=== PATIENT | male | born 1975 | race Asian ===

== ENCOUNTER 2025-02-25 16:36 | Emergency (ER) | payer MEDICAID ==
[~2025-02-25] VITALS: Ht 175.3 cm; Wt 80.0 kg
[2025-02-25 16:44] VITALS: BP 132/84; PULSE 78; RESP 18; TEMP 97.6; O2SAT 98
[2025-02-25 17:55] LABS: MEAN PLATELET VOLUME 8.8 FL (7.4-10.4); RED CELL DISTRIBUTION WIDTH 24.0 % (11.5-14.5)
[2025-02-25 18:11] LABS: APTT 34 SECONDS (22-32); INR 2.1 INR
[2025-02-25 18:20] LABS: CREATININE 0.49 MG/DL (0.60-1.10); TOTAL CARBON DIOXIDE 23.1 MMOL/L (24-32); eCRCL 186 ML/MIN; eGFR > 90 ML/MIN
[2025-02-25 18:30] LABS: PLATELET ESTIMATE DECREASED
== END 2025-02-25 21:24 | disposition left against medical advice (07) ==
LOC: ER 16:37
DX: R10.9 Unspecified abdominal pain (principal); Z53.21 Procedure and treatment not carried out due to patient leaving prior to being seen by health care provider
CPT/HCPCS: 36415; 80053; 82150; 83690; 83735; 85008; 85025; 85610; 85730

== ENCOUNTER 2025-02-26 05:59 | Inpatient (IN) | payer MEDICAID ==
[~2025-02-26] VITALS: Ht 172.7 cm; Wt 80.3 kg
[2025-02-26 06:00] VITALS: TEMP 98.4
[2025-02-26 07:21] LABS: CREATININE 0.65 MG/DL (0.60-1.10); TOTAL CARBON DIOXIDE 23.2 MMOL/L (24-32)
[2025-02-26 07:22] LABS: eGFR > 90 ML/MIN
[2025-02-26 07:25] LABS: MEAN PLATELET VOLUME 8.7 FL (7.4-10.4); RED CELL DISTRIBUTION WIDTH 23.8 % (11.5-14.5)
--- NOTE | 2025-02-26 07:28 | Physician Documentation ---
History of Present Illness General Chief Complaint: Abdominal Pain Stated Complaint: DRAINING Time Seen by MD: 07:20 History of Present Illness Initial Comments The patient is a 49-year-old male who admits to heavy drinking (until about two months ago when reportedly cut back) who has developed abdominal swelling over the past two weeks. He takes no regular medications. Medication Reconciliation Allergies: Coded Allergies: No Known Allergies (Unverified , 02/25/25) Physical Exam Physical Exam Vital Signs: Temperature: 98.4, Source: Oral, Heart Rate: 104, Respiratory Rate: 16, BP: 126/82, Pulse Oximetry: 99, Weight: 80.300 Oxygen Flow Rate: 0 Progress Results/Orders Results/Orders Orders - TESSIE HOWARD MD Ammonia (02/26/25 07:20) Covid19 Binax Poc Result Entry (02/26/25 07:20) Drug Screen, Urine (02/26/25 07:20) LA (02/26/25 07:20) Chest,Single View (02/26/25 07:31) Page Hospitalist (02/26/25 07:40) Ct Abdomen Pelvis (02/26/25 07:54) Completed Orders - TESSIE HOWARD MD Pt Inr (02/26/25 07:20) Chest,Single View (02/26/25 07:31) Iohexol 300mg/Ml 100ml Inj. (Omnipaque-3 (02/26/25 08:06) Vital Signs 02/26/25 02/26/25 06:00 08:00 Temp 98.4 Pulse 104 99 Resp 16 B/P (MAP) 126/82 139/91 (107) Pulse Ox 99 93 O2 Flow Rate 0 0 Laboratory Tests Test 02/26/25 06:01 02/26/25 06:36 02/26/25 06:38 02/26/25 07:34 Sodium Level 135 Potassium Level 3.6 Chloride Level 106 Carbon Dioxide Level 23.2 L Anion Gap 6 L Blood Urea Nitrogen 4 L Creatinine 0.65 Estimated GFR/1.73 m2 > 90 BUN/Creatinine Ratio 6.2 L Glucose Level 109 H Calcium Level 8.2 L Magnesium Level 1.7 Total Bilirubin 4.0 H Aspartate Amino Transf (AST/SGOT) 135 H Alanine Aminotransferase (ALT/SGPT) 42 Alkaline Phosphatase 162 H Total Protein 8.5 H Albumin 2.0 L Globulin 6.5 H Albumin/Globulin Ratio 0.3 L Lipase 79 H Chemistry Comments Ethyl Alcohol Level 280 H Prothrombin Time 20.3 H INR International Normalized Ratio 2.1 Coagulation Comments White Blood Count 4.3 L Red Blood Count 3.98 L Hemoglobin 8.3 L Hematocrit 26.8 L Mean Corpuscular Volume 67.3 L Mean Corpuscular Hemoglobin 20.8 L Mean Corpuscular Hemoglobin Concent 30.9 L Red Cell Distribution Width 23.8 H Platelet Count 62 L Mean Platelet Volume 8.7 Neutrophils (%) (Auto) Lymphocytes (%) (Auto) Monocytes (%) (Auto) Eosinophils (%) (Auto) Basophils (%) (Auto) Neutrophils # (Auto) Lymphocytes # (Auto) Monocytes # (Auto) Eosinophils # (Auto) Basophils # (Auto) CBC Comment Differential Total Cells Counted 100 Neutrophils % (Manual) 46.0 Lymphocytes % (Manual) 35.0 Monocytes % (Manual) 7.0 Eosinophils % (Manual) 6.0 Reactive Lymphocytes 6.0 H Platelet Estimate Decreased Red Blood Cell Morphology Perf Hypochromasia 1+ Basophilic Stippling Anisocytosis 3+ Microcytosis 2+ Target Cells 2+ Tear Drop Cells Few Lactic Acid Level 2.2 H Departure Disposition: ADMITTED INPATIENT Admitted to Inpatient Unit: to hospitalist Admission Level of Care: Med/Surg Impression: Primary Impression: Abdominal ascites Condition: Stable Referrals: NO PRIMARY CARE PROVIDER (PCP) Signature Scribe Signature: . Attestation: TESSIE SHERMAN MD Feb 26, 2025 07:28
[2025-02-26 07:43] LABS: INR 2.1 INR
--- NOTE | 2025-02-26 07:48 | RADIOLOGY REPORT ---
CHEST RADIOGRAPH Indication: Massive ascites Technique: Single frontal view of the chest was obtained Comparison: None FINDINGS: Lines and Tubes: None Lungs: No focal consolidation. Pleura: No effusion. No pneumothorax. Cardiomediastinal contours: Unremarkable Bones: No acute osseous abnormality. IMPRESSION: No acute cardiopulmonary disease.
[2025-02-26 07:55] LABS: ETHANOL 280 MG/DL (<10)
[2025-02-26 08:02] LABS: EOSINOPHILS % (MANUAL) 6.0 % (0-6); LYMPHOCYTES % (MANUAL) 35.0 % (21-51); MONOCYTES % (MANUAL) 7.0 % (2-12); NEUTROPHILS % (MANUAL) 46.0 % (42-75); REACTIVE LYMPHOCYTES % 6.0 % (0-0)
[2025-02-26 08:03] LABS: PLATELET ESTIMATE DECREASED
[2025-02-26] MEDS ORDERED: iohexol 300mg/ml 100ml inj. ONE (08:06)
[2025-02-26 09:03] LABS: LACTATE DEHYDROGENASE 248 U/L (85-227)
--- NOTE | 2025-02-26 09:53 | RADIOLOGY REPORT ---
Exam: CT CT ABDOMEN PELVIS W/ IV CONTRAST History: Massive ascites COMPARISON: None Technique: Multidetector spiral CT of the abdomen and pelvis was performed from lung bases to pubic symphysis. Intravenous contrast was administered during this examination. Multiphase imaging was obtained. Axial, coronal and sagittal multiplanar reformats were performed by the technologist on a separate workstation. Radiation Dose : 1. Abdomen/Pelvis: CTDIvol 21.4mGy, DLP 3105.6 mGy*cm. Findings: Lung Bases: No acute or significant lung base finding. Normal heart size. No pleural or pericardial effusion. Liver: Mildly nodular hepatic contours are present suggestive of cirrhosis. Multiple punctate bilobar nonenhancing lesions are present in the liver which may represent cysts. Gallbladder and Biliary Tree: Unremarkable Spleen: Unremarkable Pancreas: The pancreas is normal in appearance without focal lesions or abnormal enhancement. Adrenal Glands: Unremarkable Kidneys: No hydronephrosis. Bladder: Unremarkable Bowel: The stomach is grossly normal in appearance. Small bowel and colon are normal in caliber and distribution. The appendix is not visualized; however, no secondary findings of acute appendicitis identified. Ascites: Moderate to large volume abdominopelvic ascites. Lymphadenopathy: No mesenteric, retroperitoneal or periportal lymphadenopathy. Abdominal Wall and Mesentery: Unremarkable. Vasculature: The visualized abdominal aorta is normal in size and caliber. Abdominal and pelvic vessels demonstrate normal enhancement. Pelvic Organs: Unremarkable Musculoskeletal: No aggressive focal bony lesions, acute fractures or dislocation. IMPRESSION: Nodular hepatic contours suggestive of cirrhosis. Moderate to large volume abdominopelvic ascites. Nonenhancing bilobar hepatic lesions which may represent cysts. No suspicious hepatic lesion. Radiation optimization: All CT scans at this facility use at least one of these dose optimization techniques: automated exposure control mA and/or kV adjustment per patient size (includes targeted exams where dose is matched to clinical indication) or iterative reconstruction.
[2025-02-26] MEDS ORDERED: potassium Cl 20 mEq SR tablet PO PRN ×2 (10:25)
[2025-02-26] MEDS ORDERED: magnesium hydroxide 30ml (MOM) UD suspension PO PRN (10:25)
[2025-02-26] MEDS ORDERED: ondansetron/PF 4mg/2ml inj IV PRN (10:25)
[2025-02-26] MEDS ORDERED: magnesium sulf-water 2g/50mL 50 ML IV PRN (10:25)
[2025-02-26] MEDS ORDERED: magnesium Cl slow-release 64mg tablet PO PRN (10:25)
[2025-02-26] MEDS ORDERED: mag hydrox/Alum hydrox/simeth 30ml oral suspension PO PRN (10:25)
[2025-02-26] MEDS ORDERED: potassium Cl 40MEQ/1/2NS 520ml 520 ML IV PRN (10:25)
[2025-02-26] MEDS ORDERED: magnesium sulf-water 4G/100mL 100 ML IV PRN (10:25)
[2025-02-26] MEDS ORDERED: dextrose 50%-water 50ml dispensing syringe IV PRN (10:30)
[2025-02-26] MEDS ORDERED: haloperidol lactate 5mg/ml inj IM PRN (10:30)
[2025-02-26] MEDS: folic acid 1mg/0.2ml inj IV SCH (10:40)
[2025-02-26 10:57] LABS: CHOL/HDL RATIO 5.8 (0.00-4.99); LDL CHOLESTEROL 48 MG/DL (50-100)
[2025-02-26] MEDS ORDERED: diazepam inj 5 MG/ML inj. IV PRN ×2 (11:00)
[2025-02-26] MEDS: thiamine 100mg/ml 2ml inj. IV SCH (11:09)
[2025-02-26 11:39] VITALS: BP 136/75; PULSE 113; RESP 17; O2SAT 99
[2025-02-26 11:44] VITALS: BP 117/74; PULSE 90; RESP 17; O2SAT 100
--- NOTE | 2025-02-26 11:52 | PROCEDURE NOTE CC ---
Procedure Note CC Providers to CC ~ Procedure Name: Paracentesis Description: Indication: Ascites Time-out: Done Consent: Pt Technique: US guided Fluid: 4400ml clear yellow. Sample sent to lab Complication: None EBL: 0ml Sepsis Screening Reassessment Date: Feb 26, 2025 BILL GARLAND MD Feb 26, 2025 11:52
[2025-02-26 12:22] LABS: GLUCOSE,BODY FLUID 117 MG/DL; LDH,BODY FLUID 47 U/L
[2025-02-26 12:46] LABS: BF MESOTHELIAL CELLS FEW; BF RBC COUNT 108 /CU MM; BF WBC COUNT 48 /CU MM (0-1000); BFAPPEAR HAZY; BFCOLOR YELLOW; BFSOURCE ASCITES FLD; BFVOLUME 40 ML; LYMPHOCYTES,BODY FLUID 52 %; MONOCYTES,BODY FLUID 44 %; NEUTROPHILS,BODY FLUID 4 %
[2025-02-26] MEDS ORDERED: thiamine 100mg/ml 2ml inj. IV SCH (13:00)
--- NOTE | 2025-02-26 13:04 | RADIOLOGY REPORT ---
PROCEDURE: ULTRASOUND GUIDED PARACENTESIS HISTORY: 49 Male requiring paracentesis. TECHNIQUE: The risks and benefits of the procedure including but not limited to bleeding, infection and injury to abdominal organs were explained to the patient and written informed consent was obtained. Optimal site for puncture was determined using ultrasound and the area sterilized and draped. Using a 5 Welsh Yueh catheter, paracentesis was performed in the right lower abdomen. Approximately 4.4 liters of straw colored fluid was removed. The patient tolerated the procedure well. There were no immediate complications. IMPRESSION: Ultrasound-guided paracentesis with no immediate complications. Procedure by Dr. Rodgers
[2025-02-26 13:26] LABS: TOTAL PROTEIN,BODY FLUID < 2.0 G/DL
[2025-02-26] MEDS ORDERED: docusate sod 100mg capsule PO SCH (20:00)
[2025-02-26] MEDS ORDERED: K and/or MAG REPLACEMENT MC SCH (20:00)
--- NOTE | 2025-02-26 22:03 | HISTORY AND PHYSICAL-Residence ---
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 He reports that since 1 week epigastric pain started suddenly which is 5/10 in intensity, non radiating. Also reports shortness of breath since 1 but denies fever nausea sweating hematemesis or blood in stool. Mentions that he does not nauseated he does not eat anything, it makes him nauseated. He has been trying to quit alcohol previously used to drink 5-6 shots, now since 1 week he has reduced his alcohol intake to 2-3 shots a day. Reports that he never experienced withdrawal symptoms Allergies: Coded Allergies: No Known Allergies (Unverified , 02/25/25) Past Medical History Past Medical History Denies any past medical history Past Surgical History Surgical History Comment Denies any past surgical history Past Social History Social History Comment He quit smoking 3-4 years ago before that he used to smoke 1-2 ciggartes in a week. He drinks alcohol chronically and has been drinking 5-6 shots in a day, reduced it to 2-3 shots in a day. Denies other illicit drug use He is unemployed and lives in home with family ROS ROS Constitutional: no fever,no chills, dizziness, weakness, weight gain or loss. Eyes: No pain, erythema, discharge, blurring of vision ENT: No sore throat, epistaxis, tinnitus Cardiovascular: No chest pain, chest pressure, chest discomfort, palpitations, syncope, lower extremity edema, paroxysmal nocturnal dyspnea Respiratory: No shortness of breath, cough, hemoptysis Gastrointestinal: no nausea, vomiting,reports epigastric pain, no melena or hematochezia, reports constipation, no diarrhea Genitourinary: No frequency, urgency, nocturia, hematuria or dysuria Musculoskeletal: No arthralgias or myalgias Integumentary: No change in skin, hair, nails,No swelling, abrasions. Neurologic: No headache, neck pain, numbness or tingling of the extremities, weakness Psychiatric: No delusions, depression, no loss of interest in normal activity or change in sleep pattern, no hallucinations,no suicidal ideations Endocrine: No fatigue, weakness, polydipsia, polyuria, change in appetite, heat or cold intolerance, dry skin,no sweating Hematological: no bleeding or bruises in upper extremities. Allergies: No asthma or urticaria Exam Vitals: Vital Signs Date Time Temp Pulse Resp B/P (MAP) Pulse Ox O2 Delivery O2 Flow Rate FiO2 02/26/25 11:44 90 17 117/74 (88) 100 Room Air 02/26/25 08:00 0 02/26/25 06:00 98.4 General: General: awake, alert oriented to place, time, and person HEENT: No pallor present,scleral icterus, moist mucous membranes Neck: No masses and tenderness Resp: Unlabored. Lungs clear to auscultation bilaterally. Chest: Normal expansion. Cardiovascular: Regular Rate and rhythm, normal S1 and S2 without murmur, rub or gallop Abdomen: Hard and non tender and distended, no organomegaly, no guarding and rigidity, bowel sounds present Neuro: No focal weakness in the upper and lower limb muscles, power of the muscles 5/5 bilateral upper and lower extremities, normal reflexes bilaterally. Cranial nerves intact Extremities: No cyanosis,clubbing or edema MusculoSkelelal: No arthalagia or Myalgia. Skin: Warm and Dry. Psych: Normal affect Diagnostic Data Last Recorded Lab Results: 02/26/25 0638 02/26/25 0601 Diagnostic Data: Laboratory Tests Test 02/26/25 06:36 Prothrombin Time 20.3 SECONDS (9.0-12.0) H INR International Normalized Ratio 2.1 INR Coagulation Comments Additional Plan Patient presented here with complain of epigastric pain and shortness of Breath. Acute Decompensated Liver Failure due to Cirhosis Secondary to Alcohol Use CT Abdomen/Pelvis CT: Nodular hepatic contours suggestive of cirrhosis. Moderate to large volume abdominopelvic ascites. Nonenhancing bilobar hepatic lesions which may represent cysts. No suspicious hepatic lesion. ALT 135 , AST normal, ALP 162 Total bilirubin 4, Ammonia normal. Toxicology positive for alcohol Lactic acid trended upward from 2.2 to 2.6 PT: 20.3 Pancytopenia Patient abdomen was distended Consulted for paracentesis. Pancytopenia likely due to bone marrow suppresion from Alcohol Rbc: 4.3 Hgb: 8.3 WBC: 4.3 Platelet Count: 62 Tear drop cells and target cells on peripheral smear. Alcohol Use Disorder Patient was placed on alcohol withdrawl protocol. Dvt Prophylaxis: SCD GI Prophylaxis: Pantoprazole CODE Status: Full Code Date of Service: Feb 26, 2025 Billing Provider: BRITTNEY LOCKHART MD, SANJAY, BISI Feb 26, 2025 22:03
--- NOTE | 2025-02-26 22:05 | DISCHARGE SUMMARY-Residence ---
Discharge Summary Providers to CC Resident Creating Document: DAMARIS HANDY RES CC: BRITTNEY LOCKHART MD ~ Discharge Summary Admission Diagnosis: Cirhosis Hospital Course DATE OF ADMISSION: 02/26/2025 DATE OF DISCHARGE: 02/26/2025 Discharge Diagnosis\Comment: Acute Decompensated Liver Failure Cirhosis Pancytopenia Operations\Procedures: Paracentesis Consultants: Dr Rodgers Complications: none Condition on DC: Unstable Discharge Summary: History of Presenting Illness This is 52-year-old male hafsa speaker, he does not understand swazi so i used virtual lot boss He presents to the ER with complaint of epigastric pain. He reports that since 1 week epigastric pain started suddenly which is 5/10 in intensity, non radiati ng. Also reports shortness of breath since 1 but denies fever nausea sweating hematemesis or blood in stool. Mentions that he does not nauseated he does not eat anything, it makes him nauseated. He has been trying to quit alcohol previously used to drink 5-6 shots, now since 1 week he has reduced his alcohol intake to 2-3 shots a day. Reports that he never experienced withdrawal symptoms. We explained patient risk of leaving hospital including but he choose to be AMA. Hospital Course Patient presented in ER with complain of epigastric pain, Nodular hepatic contours suggestive of cirrhosis. Moderate to large volume abdominopelvic ascites, In view of his ascited performed paracentesis. Apart from that he received thiamine, folic acid and pantoprazole for GI prophylaxis. We explained patient risk of leaving hospital including but he choose to be AMA. Physical Examination General: General: awake, alert oriented to place, time, and person HEENT: No pallor present,scleral icterus, moist mucous membranes Neck: No masses and tenderness Resp: Unlabored. Lungs clear to auscultation bilaterally. Chest: Normal expansion. Cardiovascular: Regular Rate and rhythm, normal S1 and S2 without murmur, rub or gallop Abdomen: Hard and non tender and distended, no organomegaly, no guarding and rigidity, bowel sounds present Neuro: No focal weakness in the upper and lower limb muscles, power of the muscles 5/5 bilateral upper and lower extremities, normal reflexes bilaterally. Cranial nerves intact Extremities: No cyanosis,clubbing or edema MusculoSkelelal: No arthalagia or Myalgia. Skin: Warm and Dry. Psych: Normal affect Labs Wbc 4.3 Hgb: 8.3 Hct: 26.8 Platelet Count: 62 Na: 135 K: 3.6 Creatinine: 0.65 BUN: 4 Lipase 36 Total Bilirubin 4 AST 135, ALT 42 LDH: 248 TSH 5.10 Imaging Abdominal/Pelvis CT: Nodular hepatic contours suggestive of cirrhosis. Moderate to large volume abdominopelvic ascites. Nonenhancing bilobar hepatic lesions which may represent cysts. No suspicious hepatic lesion. Chest X- Ray: No acute cardiopulmonary disease. Procedure Paracentesis: Ultrasound-guided paracentesis with no immediate complications. We explained patient risk of leaving hospital including but he choose to be AMA. *Problems/Diagnosis: (1) Abdominal ascites Status: Chronic Total Time Spent on D/C: > 30 Minutes Date of Service: Feb 26, 2025 Billing Provider: BRITTNEY LOCKHART MD, SANJAY, RES Feb 26, 2025 22:05
[2025-02-27] MEDS ORDERED: folic acid 1mg/0.2ml inj IV SCH (08:00)
== END 2025-02-26 12:51 | disposition left against medical advice (07) ==
LOC: ER 05:59 → ED HOLD 08:09
PROVIDERS: ADMIT Family Medicine; ATTEND Family Medicine
PROC: 0W9G3ZZ Drainage of Peritoneal Cavity, Percutaneous Approach (ICD-10-PCS; principal; 2025-02-26)
PROC: BW211ZZ Computerized Tomography (CT Scan) of Abdomen and Pelvis using Low Osmolar Contrast (ICD-10-PCS; 2025-02-26)
DX: K74.60 Unspecified cirrhosis of liver (principal); D61.818 Other pancytopenia; K72.10 Chronic hepatic failure without coma; Z20.822 Contact with and (suspected) exposure to COVID-19; Z53.21 Procedure and treatment not carried out due to patient leaving prior to being seen by health care provider; R18.8 Other ascites; K72.00 Acute and subacute hepatic failure without coma
CPT/HCPCS: 36415; 49083; 71045; 74178; 80053; 80061; 80320; 82140; 82945; 83036; 83605; 83615; 83690; 83735; 84157; 84443; 85007; 85025; 85610; 87070; 87075; 87811; 89051; 96374; 96375; 99285; C1729; G0378; J2470; J3411; J3490; Q9967

== ENCOUNTER 2025-03-29 05:20 | Emergency (ER) | payer MEDICAID ==
[~2025-03-29] VITALS: Ht 172.7 cm; Wt 82.4 kg
--- NOTE | 2025-03-29 06:21 | Physician Documentation ---
History of Present Illness General Chief Complaint: See Chief Complaint Stated Complaint: FLUID IN STOMACH Time Seen by MD: 06:20 Mode of Arrival: POV History of Present Illness Initial Comments The patient is a 49-year-old male with a history of alcoholic cirrhosis. The patient was admitted to the hospital month and a half ago had 4 L of fluid taken out of his abdomen with a paracentesis. The patient states he stopped taking Lasix at his providers instruction several weeks ago. Patient has had continued swelling and discomfort to the abdomen. The pain is described as moderate the patient's swelling is not as bad as it was a month and a half ago. The patient has only been tapped once before. Patient's symptoms are moderate and persisten t. Medication Reconciliation Allergies: Coded Allergies: No Known Allergies (Unverified , 02/25/25) Past Medical History Past Medical History: Liver Failure Review of Systems All Other Systems at this time: Reviewed and Negative Physical Exam Physical Exam Vital Signs: Temperature: 98.2, Source: Oral, Heart Rate: 115, Respiratory Rate: 20, BP: 144/80, Pulse Oximetry: 100, Weight: 82.400 Oxygen Flow Rate: 0 Physical Exam VITALS: Reviewed and as above. GENERAL: Alert, no apparent distress chronically ill-appearing jaundiced appearing HEENT: Normocephalic, atraumatic, PERRL, EOMI, dry mucosa, no erythema icteric sclera RESPIRATORY: Lungs clear, normal breath sounds, no respiratory distress. CHEST: No accessory muscle use, no retractions CV: Tachycardic rate, rhythm, no edema, no murmur, No: JVD GI: Soft, distended slightly tender diffusely bowels sounds present, no rebound, guarding, or rigidity BACK: No CVA tenderness, or swelling MUSCULOSKELETAL: No deformities, no edema SKIN: Warm and dry, no rash NEURO: Oriented x4, No motor or sensory deficit PSYCH: Normal mood and affect, no agitation Procedures Additional Procedures Procedure Note The patient was verbally consented for a paracentesis the patient had a area of fluid localized by ultrasound in the right lower quadrant that area was then prepped with a chlorhexidine prep, the procedure was done under sterile conditions. The patient had 5 cc of lidocaine 1% injected into the identified site in the right lower quadrant. The paracentesis catheter was then placed with good return of clear ascitic yellow fluid. The patient tolerated the procedure well. There were no complications. 7 L OF ASCITIC FLUID WERE REMOVED PATIENT REMAINED NORMOTENSIVE Progress Results/Orders Results/Orders Orders - OHLABBEY CADE MD Pt Inr (03/29/25 06:26) Paracentesis Set Up (03/29/25 ) Completed Orders - ABBEY SWEENEY MD Cbc/Diff (03/29/25 06:26) CMP (03/29/25 06:26) Vital Signs 03/29/25 03/29/25 03/29/25 03/29/25 05:27 05:39 07:36 09:25 Temp 98.2 98.2 Pulse 115 89 88 Resp 16 20 16 16 B/P (MAP) 144/80 114/52 (72) 119/67 Pulse Ox 100 100 97 O2 Flow Rate 0 0 Laboratory Tests Test 03/29/25 08:10 White Blood Count 9.4 Red Blood Count 4.12 L Hemoglobin 9.0 L Hematocrit 28.2 L Mean Corpuscular Volume 68.4 L Mean Corpuscular Hemoglobin 21.9 L Mean Corpuscular Hemoglobin Concent 31.9 L Red Cell Distribution Width 21.8 H Platelet Count 156 Mean Platelet Volume 8.5 Neutrophils (%) (Auto) 80.6 H Lymphocytes (%) (Auto) 6.0 L Monocytes (%) (Auto) 12.7 H Eosinophils (%) (Auto) 0.4 Basophils (%) (Auto) 0.3 Neutrophils # (Auto) 7.6 Lymphocytes # (Auto) 0.6 L Monocytes # (Auto) 1.2 H Eosinophils # (Auto) 0.0 Basophils # (Auto) 0.0 CBC Comment Platelet Estimate Normal Red Blood Cell Morphology Perf Hypochromasia 1+ Basophilic Stippling Anisocytosis 3+ Microcytosis 2+ Target Cells 1+ Tear Drop Cells Few Elliptocytes Few Rouleau 1+ Sodium Level 123 L Potassium Level 5.0 Chloride Level 96 L Carbon Dioxide Level 23.6 L Anion Gap 3 L Blood Urea Nitrogen 8 Creatinine 0.71 Estimated GFR/1.73 m2 > 90 BUN/Creatinine Ratio 11.3 Glucose Level 87 Calcium Level 8.2 L Total Bilirubin 9.6 H Aspartate Amino Transf (AST/SGOT) 77 H Alanine Aminotransferase (ALT/SGPT) 28 Alkaline Phosphatase 126 H Total Protein 7.8 Albumin 1.2 L Globulin 6.6 H Albumin/Globulin Ratio 0.2 L Chemistry Comments Medical Decision Making Additional info obtained from: old records Findings The patient is a 49-year-old alcoholic cirrhotic who comes in with ascites, the patient has been tapped once before for about 4 L of fluid that was removed. The patient has been on spironolactone but he stopped taking his Lasix due to some hyponatremia. The patient had a paracentesis in the emergency department he was comfortable throughout had 7 L of fluid removed and remained normotensive. The patient's sodium continues to be low I believe that was why he was taken off Lasix I have advised them to increase his salt intake and a continue once a day Lasix I initially was going to put him on twice a day but given the low-sodium I think he would benefit from some Lasix as long as he increases his salt intake he is also going to be continued on one dose of 100 mg of spironolactone a day ideally he would benefit from both of these medicines twice a day however with a low-sodium I think once a day would be ideal for now. Prior hospitalizations has been reviewed. The patient's pulse oximetry was interpreted as adequate normal. The patient's care was discussed with the son who understood the plan of care. The patient's courier was interpreted as a normal sinus rhythm. The patient has a soft belly with a clear fluid there was no reason for sending the fluid for analysis as it was a therapeutic tap. The patient has been advised to follow up closely as an outpatient. Departure Time of Disposition: 08:40 Disposition: 01 HOME / SELF CARE / HOMELESS Impression: Primary Impression: Abdominal ascites Qualified Codes: K70.31 - Alcoholic cirrhosis of liver with ascites Discharge Instructions: Ascites Additional Instructions: Use your Lasix 40 mg 2 times a day, and use the spironolactone twice daily. Follow up with your healthcare provider as soon as possible. Return for worsening of your symptoms. Referrals: NO PRIMARY CARE PROVIDER (PCP) Signature Scribe Signature: no scribe Attestation: The note accurately reflects work and decisions made by me.Abbey Sweeney MD 03/30/25 06:07 ABBEY SWEENEY MD Mar 29, 2025 06:21
[2025-03-29 07:36] VITALS: TEMP 98.2
[2025-03-29 08:36] LABS: MEAN PLATELET VOLUME 8.5 FL (7.4-10.4); RED CELL DISTRIBUTION WIDTH 21.8 % (11.5-14.5)
[2025-03-29] MEDS ORDERED: FURO40TA4 PO (08:38)
[2025-03-29] MEDS ORDERED: SPIR100T5 PO (08:38)
[2025-03-29 09:03] LABS: PLATELET ESTIMATE NORMAL
[2025-03-29 09:08] LABS: ELLIPTOCYTES FEW
[2025-03-29 09:12] LABS: CREATININE 0.71 MG/DL (0.60-1.10); TOTAL CARBON DIOXIDE 23.6 MMOL/L (24-32); eCRCL 124 ML/MIN; eGFR > 90 ML/MIN
[2025-03-29 09:25] VITALS: BP 119/67; PULSE 88; RESP 16; O2SAT 97
== END 2025-03-29 09:31 | disposition home or self-care (01) ==
LOC: ER 05:21
DX: R18.8 Other ascites (principal)
CPT/HCPCS: 49083; 80053; 85008; 85025; 99285; A6258; C1729

== ENCOUNTER 2025-03-31 18:06 | Inpatient (IN) | payer MEDICAID ==
[~2025-03-31] VITALS: Ht 172.7 cm; Wt 72.2 kg
--- NOTE | 2025-03-31 18:23 | Physician Documentation ---
History of Present Illness General Chief Complaint: Vomiting w/diarrhea Stated Complaint: DIARREAH/NV Time Seen by MD: 18:16 History of Present Illness Initial Comments This is a 49-year-old gentleman with a known history of alcohol use disorder, liver cirrhosis, ascites, has a ascites drained two days ago, brought in by his son for evaluation of nausea, vomiting, diarrhea. He had two episodes of nonbloody nonbilious emesis as well as two episodes of diarrhea earlier today. Denies any abdominal pain. The particular palliating or aggravating factors. Nobody sick around him. Did not attempt to treat it. No other concerns such as chest pain, difficulty breathing, headache. Continues to drink. Medication Reconciliation Allergies: Coded Allergies: No Known Allergies (Unverified , 03/31/25) Past Medical History Past Medical History: Liver Failure Review of Systems ROS 10 point review of systems was performed and unless noted above in HPI is negative for acute process/complaint. Physical Exam Physical Exam Vital Signs: Temperature: 96.5, Source: Temporal, Heart Rate: 108, Respiratory Rate: 18, BP: 113/74, Pulse Oximetry: 100, Weight: 72.200 Oxygen Flow Rate: 0 Physical Exam GENERAL: Awake, alert, oriented, GCS 15, no apparent distress, non-toxic appearing, answers questions, follows commands appropriately. Examined in bed 11. HEENT: Atraumatic, normocephalic, pupils equal, extraocular muscles intact, sclerae moderately icteric, mucus membranes moist, oropharynx is clear, no stridor. NECK: supple, full active range of motion, trachea midline, no thyromegaly, no lymphadenopathy, no JVD. CARDIOVASCULAR: regular rate/rhythm, no murmurs/gallops/rubs, Pulses are 2+ in all extremities and symmetric. Capillary refill less than 2 seconds. PULMONARY: Nonlabored, good air movement ,no respiratory distress, speaking in full sentences, clear to auscultation bilaterally, no wheezing, no ronchi, no rales, no accessory muscle use. GASTROINTESTINAL: Soft, non-tender, non-distended, normal active bowel sounds, no organomegaly, no pulsatile masses, no CVA tenderness. NEUROLOGIC: Lucid with normal mental status. Normal facial symmetry. Moves all extremities symmetrically and with purpose. No truncal ataxia. Speech is fluid without evidence of dysarthria or aphasia, no focal deficits appreciated. MUSCULOSKELETAL: There is full range of motion of all extremities. There is no joint pain or joint swelling or joint erythema. There is no muscle pain or tenderness or swelling. EXTREMITIES: warm, well-perfused, no cyanosis, no clubbing, no edema, no acute deformities. Skin: warm, dry, no rashes or lesions, no jaundice, no petechiae orpurpura. No ecchymosis. PSYCHIATRIC: Normal affect, normal insight, normal concentration. Focused exam: [] Progress Results/Orders Results/Orders Orders - LOS ACEVEDO DO Monitor (03/31/25 18:17) Saline Lock (03/31/25 18:17) C Diff Toxin (03/31/25 18:17) Completed Orders - LOS ACEVEDO DO Cbc/Diff (03/31/25 18:17) Lipase (03/31/25 18:17) MG (03/31/25 18:17) Normal Saline 1000ml (0.9% Sodium Chlori (03/31/25 18:20) CMP (03/31/25 18:17) Ammonia (03/31/25 18:17) Ethanol (03/31/25 18:23) Medications Received in ER Medications (Trade) Dose Ordered Sig/Adriana Route PRN Reason Start Time Stop Time Status Last Admin Dose Admin (0.9% sodium chloride (NS) 1000ml IV soln) 1,000 ml ONCE ONCE IVB 03/31/25 18:20 03/31/25 18:21 DC 03/31/25 18:49 1,000 ML Vital Signs 03/31/25 03/31/25 03/31/25 18:11 18:19 18:47 Temp 96.5 96.5 Pulse 108 108 Resp 18 16 B/P (MAP) 113/74 115/76 (89) Pulse Ox 100 100 O2 Flow Rate 0 0 Laboratory Tests Test 03/31/25 18:48 03/31/25 18:53 White Blood Count 8.2 Red Blood Count 4.18 L Hemoglobin 9.1 L Hematocrit 28.7 L Mean Corpuscular Volume 68.7 L Mean Corpuscular Hemoglobin 21.8 L Mean Corpuscular Hemoglobin Concent 31.7 L Red Cell Distribution Width 22.3 H Platelet Count 218 Mean Platelet Volume 8.6 Neutrophils (%) (Auto) 76.0 H Lymphocytes (%) (Auto) 10.6 L Monocytes (%) (Auto) 12.5 H Eosinophils (%) (Auto) 0.6 Basophils (%) (Auto) 0.3 Neutrophils # (Auto) 6.2 Lymphocytes # (Auto) 0.9 L Monocytes # (Auto) 1.0 H Eosinophils # (Auto) 0.1 Basophils # (Auto) 0.0 CBC Comment Platelet Estimate Normal Red Blood Cell Morphology Perf Hypochromasia 2+ Basophilic Stippling Anisocytosis 3+ Microcytosis 2+ Target Cells Few Sodium Level 124 L Potassium Level 5.0 Chloride Level 94 L Carbon Dioxide Level 22.5 L Anion Gap 8 Blood Urea Nitrogen 21 H Creatinine 1.08 Estimated GFR/1.73 m2 73 BUN/Creatinine Ratio 19.4 Glucose Level 117 H Calcium Level 8.5 Magnesium Level 1.9 Total Bilirubin 10.6 H Aspartate Amino Transf (AST/SGOT) 73 H Alanine Aminotransferase (ALT/SGPT) 35 Alkaline Phosphatase 129 H Total Protein 8.2 Albumin 1.2 L Globulin 7.0 H Albumin/Globulin Ratio 0.2 L Lipase 322 H Chemistry Comments Ethyl Alcohol Level < 10 Ammonia 113 *H Medical Decision Making Findings Facility Status: ED Holds, [facility] process The plan was discussed with the patient, who demonstrates clear understanding of the plan and is in agreement with the plan unless otherwise noted in the chart. All questions have been answered, all concerns were addressed unless otherwise documented. I was available throughout their ED stay for frequent reassessment and questions. Differential Diagnoses (considered and possible or likely): [Viral gastroenteritis, less likely preformed toxin ingestion, dehydration, electrolyte derangement had also been considered. Less likely hepatic encephalopathy. Unlikely acute intra-abdominal process requiring surgical intervention. Clinically not consistent with spontaneous bacterial peritonitis.] ??Differential Diagnoses (considered and unlikely, not requiring evaluation currently): [No evidence of trauma] MDM Data Please see HPI for the following: Independent Historians and external Records Review. Historian: [Patient] Independent Historians: ?[Son, record review] Medication Management: [Reviewed medication list] Social History and determinants: [Reviewed] Please see the body of the note for the following: Any independent interpretations of ECG, imaging studies. All vitals signs/haemodynamics, ordered tests were independently reviewed and interpreted by myself. Nursing triage complaint and vitals reviewed, additional nursing notes were reviewed as available and I agree unless otherwise noted or documented in contradiction in the chart Vital Signs: Independently reviewed Labs: Independently interpreted Imaging: Independently interpreted Old Medical Records: Independently reviewed, see HPI for relevant summary and information Pulse Oximetry: [98%] interpreted as [normal on room air] by me [Final Application Reviewer: [Regular Rate, Regular rhythm, no ectopy, NSR] reviewed and interpreted by me] Additionally notably showing: [Hemodynamically he is stable. Laboratory workup notable for elevated ammonia as well as hyponatremia. His sodium was normal in February.] Tests considered but not ordered include: [Imaging does not appear to be necessary at this time] Social Determinants of Health Impact: Patient was evaluated in [facility], [facility] [place] access to healthcare due to below par ratio of patient to medical providers. [] Comorbid Conditions Impacting Present Evaluation and Care/Treatment: [Ongoing alcohol use disorder] Management Discussions with other Healthcare Providers: [Hospitalist regarding admission] Treatment and Disposition Medication Management (Given or considered): []. See EMR for details Consideration for Hospitalization/Escalation/Deescalation of Care: Admission for observation has been considered, for correction of his hyponatremia ?ED Course:?[Improved, no vomiting or diarrhea here. Feeling better.] ?Shared decision making:?[] Code status:?FULL Please see the full Electronic Medical Record for full details of nursing documentation, medications list, other records of complete past medical history and conditions, vital signs, laboratory studies, and any radiologic study interpretations by radiologists. Portions of this note were completed using [employer] dictation software and as a result there may exist minor errors in spelling. I have reviewed elements of past family and social history and agree as included in note. Departure Disposition: ADMITTED INPATIENT Impression: Primary Impression: Hyponatremia Additional Impressions: Hepatic encephalopathy Hyperammonemia Nausea, vomiting, and diarrhea Referrals: NO PRIMARY CARE PROVIDER (PCP) Education Educated: Patient, Family Educated regarding: diagnosis, treatment, prognosis Signature Scribe Signature: No scribe Attestation: Date: Mar 31, 2025 Time: 18:23 This note accurately reflects clinical decisions, work performed by myself, Los Acevedo, LOS BRADLEY DO Mar 31, 2025 18:23
[2025-03-31] MEDS: normal saline 1000ML IV soln IVB ONE (18:49)
[2025-03-31 18:53] LABS: MEAN PLATELET VOLUME 8.6 FL (7.4-10.4); RED CELL DISTRIBUTION WIDTH 22.3 % (11.5-14.5)
[2025-03-31 19:06] LABS: CREATININE 1.08 MG/DL (0.60-1.10); TOTAL CARBON DIOXIDE 22.5 MMOL/L (24-32); eCRCL 82 ML/MIN; eGFR 73 ML/MIN
[2025-03-31 19:11] LABS: ETHANOL < 10 MG/DL (<10)
[2025-03-31 19:17] LABS: PLATELET ESTIMATE NORMAL
[2025-03-31] MEDS ORDERED: potassium Cl 40MEQ/1/2NS 520ml 520 ML IV PRN (20:50)
[2025-03-31] MEDS ORDERED: mag hydrox/Alum hydrox/simeth 30ml oral suspension PO PRN (20:50)
[2025-03-31] MEDS ORDERED: magnesium sulf-water 4G/100mL 100 ML IV PRN (20:50)
[2025-03-31] MEDS ORDERED: ondansetron/PF 4mg/2ml inj IV PRN (20:50)
[2025-03-31] MEDS ORDERED: magnesium Cl slow-release 64mg tablet PO PRN (20:50)
[2025-03-31] MEDS ORDERED: magnesium hydroxide 30ml (MOM) UD suspension PO PRN (20:50)
[2025-03-31] MEDS ORDERED: potassium Cl 20 mEq SR tablet PO PRN ×2 (20:50)
[2025-03-31] MEDS ORDERED: magnesium sulf-water 2g/50mL 50 ML IV PRN (20:50)
[2025-03-31] MEDS ORDERED: SPIR100T5 PO (20:55)
[2025-03-31] MEDS ORDERED: FOLI1TAB27 PO (20:55)
[2025-03-31] MEDS ORDERED: FERR325T28 PO (20:55)
[2025-03-31] MEDS ORDERED: FURO-149 PO (20:55)
[2025-03-31 21:03] LABS: APTT 49 SECONDS (22-32); INR 3.4 INR
[2025-03-31 21:14] LABS: OSMOLALITY 268 MOSM/K (280-300)
--- NOTE | 2025-03-31 21:27 | HISTORY AND PHYSICAL-Residence ---
History & Physical Providers to CC Resident Creating Document: RILEY ECHEVARRIA RES ~ History of Present Illness Primary Medical Doctor: [facility] Reason for Admit\Complaint: Hyponatremia, Liver cirrhosis History of Present Illness This is a 49-year-old male patient with relatively new diagnosis of alcoholic liver cirrhosis diagnosed one and a half month ago presents to the hospital with the son with primary complaints of new onset diarrhea, nausea and vomiting beginning today. The patient had 2 episodes of watery diarrhea and 2 episodes of vomiting containing plan fluid. In the ER, he was evaluated with for the laboratory evaluation was found to have hyponatremia. The patient denies symptoms of headache or dizziness. The son contributed to the history and denied any change in mental status over the last 1 and half month, reports ongoing daytime drowsiness since his diagnosis which has not changed recently. Additionally, complaints of mild epigastric abdominal pain. He has had no loss of appetite and was able to tolerate his diet. No hematemesis, hematochezia or melena. He recently had part 7 L of fluid removed through paracentesis on 03/29/2025 at [facility] ER. His sodium has remained in the 120s before and after the paracentesis but the rest of the labs including bilirubin and alkaline phosphatase are elevated today. His ammonia is 113, he is not a lactulose at home. He does take Lasix and Aldactone at home, which has been recently decreased to once a day dosing. Allergies: Coded Allergies: No Known Allergies (Unverified , 03/31/25) Home Medications Home Medications Active Reported Spironolactone 100 Mg Tablet 1 Tab PO DAILY 30 Days Folic Acid* (Folic Acid) Y Tab 1 Tab PO DAILY 30 Days Lasix (Furosemide) 40 Mg Tablet 1 Tab PO DAILY 30 Days Ferrous Sulfate* (Ferrous Sulfate) 325 Mg Tablet 1 Tab PO DAILY Past Medical History Past Medical History Alcoholic liver cirrhosis Past Surgical History Surgical History Comment No surgical history Past Social History Social History Comment Heavy alcoholic for 25 years, last drink 2 months ago. Nonsmoker. No other illicit drug abuse Lives at home with his family. Primary Elijah speaking; [id number]. Ambulates independently without assistive devices ROS Constitutional: Reports: no symptoms reported Eyes: Reports: no symptoms reported ENT: Reports: no symptoms reported Respiratory: Reports: no symptoms reported Cardiovascular: Reports: no symptoms reported Gastrointestinal: Reports: abdomen distended, nausea, vomiting, diarrhea Genitourinary: Reports: no symptoms reported Male Genitalia: Reports: no symptoms reported Neurological: Reports: no symptoms reported Musculoskeletal: Reports: no symptoms reported Integumentary: Reports: no symptoms reported Allergic/Immunologic: Reports: no symptoms reported Hematologic/Lymphatic: Reports: anemia Endocrine: Reports: no symptoms reported Psychiatric: Reports: no symptoms reported Exam Vitals: Vital Signs Date Time Temp Pulse Resp B/P (MAP) Pulse Ox O2 Delivery O2 Flow Rate FiO2 03/31/25 20:32 89 16 105/57 (73) 100 0 03/31/25 18:47 96.5 General: General: Awake and Alert, fatigued-appearing HEENT: Sclerae jaundiced. Mucus Membranes moist. Resp: Diminished bibasilar breath sounds Heart: Regular Rate and rhythm, normal S1 and S2 without murmur, rub or gallop. Abdomen: Distended. Fluid thrill present. Mild tenderness diffusely. Negative Escobar's sign. Soft and non tender no organomegaly. Clean dressing with no drainage over the previous paracentesis site in the right iliac quadrant Extremities: No cyanosis,clubbing or edema. SEARCH MARKETING SPECIALIST: Awake, alert, oriented x4. No cranial nerve deficits. Decreased nutrition upper and lower extremities. Tone normal. No motor or sensory deficits. Reflexes 3+. Gait unable to be assessed. No asterixis Skin: Warm and Dry. Diagnostic Data Last Recorded Lab Results: 04/01/25 0208 04/01/25 0208 Diagnostic Data: Laboratory Tests Test 03/31/25 18:48 Prothrombin Time 30.7 SECONDS (9.0-12.0) H INR International Normalized Ratio 3.4 INR Activated Partial Thromboplast Time 49 SECONDS (22-32) H Coagulation Comments Advance Care Planning Advanced Care plannin - 30 Minutes Additional Plan Asymptomatic Hyponatremia: Possibly hypervolemic hyponatremia Sodium 124; 123 prior to paracentesis 2 days ago Serum osmolality low at 268. Awaiting urine osmolality and urine spot studies for more definitive etiology and management Hypervolemic component from ascites; status post 7 L paracentesis on 03/29/2025 1 L normal saline bolus received in the ER. Lasix 60mg/day. Aldactone 25mg/day to be continued Apart from optimizing diuretics, consider salt tablets if sodium fails to improve Optimize diuretics Lasix and Aldactone outpatient. Frequency of paracentesis is 2 times/month Close monitoring of BMP will be continued Non-acute decompensated liver cirrhosis: Child Vitale C MELD-Na score 26 Absent features of hepatic encephalopathy Bilirubin 10.6, ammonia 113, INR 3.4, Albumin 1.2 One dose lactulose ordered, continue daily lactulose to aim for 3-4 bowel movements every day. Closely monitor BMP Outpatient evaluation by lock plater for liver transplantation and GI for screening EGD S/P 7L ascitic tap 2 days ago, recommend repeat paracentesis evaluation in a.m. Screening AFP ordered Last drink two months ago Close monitoring for AMS Nonspecific elevation of lipase: No acute pancreatitis features CT abdomen pelvis ruled out acute pancreatitis No further management directed to this Hypochromic microcytic anemia: Follow Iron studies Hypergammaglobulinemia: Serum electrophoresis and quantitative immunoglobulins studies ordered Lines: PIV Code status: Full code Diet: Regular DVT prophylaxis: SCDs GI prophylaxis: Protonix Riley Echevarria PGY3, Internal medicine resident Date of Service: Mar 31, 2025 Billing Provider: REBEKAH MELVIN MD Common Visit Codes: [id number] INP/OBS CARE (HIGH) Assessment/Plan Assessment Liver cirrhosis- with decompensated status- now with hyponatremia Suggested to keep on diuretics and supports. Fluid restrictions and close sodium follow ups. Fluid may be reviewed for SPS also -discussed the case with residents. -reviewed notes by the resident -agree with the assessments and plans -continue th e present plans RILEY ECHEVARRIA, RES Mar 31, 2025 21:27 REBEKAH MELVIN MD Apr 01, 2025 05:43
[2025-03-31 21:35] LABS: PRO BRAIN NATRIURETIC PEPTIDE 71 PG/ML (0-125)
[2025-03-31] MEDS: lactulose 20gm/30ml cup PO ONE (22:39)
[2025-03-31] MEDS: normal saline 1000ml 1,000 ML IV SCH (22:42)
[2025-04-01] VITALS (7 sets, daily range): BP systolic 100–117; BP diastolic 55–76; PULSE 94–108; RESP 19–23; TEMP 97.7–98.6; O2SAT 95–100
--- NOTE | 2025-04-01 00:33 | RADIOLOGY REPORT ---
Exam: CT CT ABDOMEN PELVIS History: Acute abdominal pain, liver cirrhosis COMPARISON: CT CT ABDOMEN PELVIS W/ IV CONTRAST on DOS: 02/26/25 Technique: Multidetector spiral CT of the abdomen and pelvis was performed from lung bases to pubic symphysis. Axial, coronal and sagittal multiplanar reformats were performed by the technologist on a separate workstation. Radiation Dose : 1. Abdomen/Pelvis: CTDIvol 20.78 mGy, DLP 1241.22 mGy*cm. Findings: Lung Bases: No acute or significant lung base finding. Normal heart size. No pleural or pericardial effusion. Liver: Cirrhotic. Gallbladder and Biliary Tree: Unremarkable Spleen: Unremarkable Pancreas: Unremarkable. Adrenal Glands: Unremarkable Kidneys: No hydronephrosis. Bladder: Unremarkable Bowel: The stomach is grossly normal in appearance. Small bowel and colon are normal in caliber and distribution. The appendix is not visualized; however, no secondary findings of acute appendicitis identified. Ascites: Moderate to large volume of ascites. Diffuse mesenteric edema. Lymphadenopathy: No mesenteric, retroperitoneal or periportal lymphadenopathy. Abdominal Wall and Mesentery: Unremarkable. Vasculature: The visualized abdominal aorta is normal in size and caliber. Pelvic Organs: Unremarkable Musculoskeletal: No aggressive focal bony lesions, acute fractures or dislocation. IMPRESSION: Cirrhotic liver with moderate to large volume of ascites. No other significant abnormality. Radiation optimization: All CT scans at this facility use at least one of these dose optimization techniques: automated exposure control mA and/or kV adjustment per patient size (includes targeted exams where dose is matched to clinical indication) or iterative reconstruction.
[2025-04-01] MEDS: furosemide 10 MG/1 ML 10ml inj IV ONE (01:09)
[2025-04-01 02:23] LABS: MEAN PLATELET VOLUME 8.6 FL (7.4-10.4); RED CELL DISTRIBUTION WIDTH 22.8 % (11.5-14.5)
[2025-04-01] MEDS: lactulose 20gm/30ml cup PO SCH (02:36)
[2025-04-01 02:46] LABS: CREATININE 0.99 MG/DL (0.60-1.10); TOTAL CARBON DIOXIDE 21.7 MMOL/L (24-32); eCRCL 89 ML/MIN; eGFR 81 ML/MIN
[2025-04-01] MEDS ORDERED: PHYT100T PO (05:47)
[2025-04-01] MEDS ORDERED: enoxaparin 40mg/0.4ml syringe SUBCUT SCH (08:00)
[2025-04-01] MEDS: docusate sod 100mg capsule PO SCH (08:00)
[2025-04-01] MEDS: K and/or MAG REPLACEMENT MC SCH (08:00)
[2025-04-01 10:36] LABS: CREATININE 1.27 MG/DL (0.60-1.10); TOTAL CARBON DIOXIDE 21.1 MMOL/L (24-32); eCRCL 70 ML/MIN; eGFR 61 ML/MIN
--- NOTE | 2025-04-01 19:02 | CARDIOLOGY REPORT ---
APPROVED REPORT EXAM: Comprehensive 2D, Doppler, and color-flow Echocardiogram. Patient Location: [address] Blood Pressure: 106/73 mmHg Heart Rate: 104 bpm Rhythm: SINUS TACHYCARDIA Indications CARDIOMYOPATHY ETOH Clinical Sales Consultant: none Previous echo: none 2D Dimensions IVSd 0.8 (0.7-1.1cm) LVDd 4.4 cm PWd 0.9 (0.7-1.1cm) IVSs 1.3 (0.8-1.2cm) LVDs 2.8 (2.5-4.0cm) PWs 1.9 (0.8-1.2cm) LVOT Diameter 2.23 (1.8-2.4cm) LVEF(%) 67.9 (>50%) FS (%) 37.6 % SV 60.5 ml CO 6.4 L/min M-Mode Dimensions Left Atrium(MM) 4.36 (2.5-4.0cm) Aortic Root 3.74 (2.2-3.7cm) Aortic Cusp Exc 2.33 (1.5-2.0cm) Aortic Valve AoV Peak Roel. 187.7 cm/s AoV VTI 23.1 cm AO Peak GR. 14.1 mmHg AO Mean GR. 7 mmHg LVOT VTI 21.22 cm LVOT Peak Roel. 142.6 cm/s BENITO(VTI)/BSA 3.58 cm2/m2 BENITO (VTI) 3.58 cm2 AV DI 0.92 % Mitral Valve MV Peak Gr. 6 mmHg MV PHT 36 ms MVA (PHT) 6.11 cm2 MV VMax 125.5 cm/s LEFT VENTRICLE Normal LV size and wall thickness. Overall systolic function is normal. LVEF is 65-70%. RIGHT VENTRICLE RV is normal size and function. ATRIA Left atrium is mildly dilated. AORTIC VALVE Trileaflet AV appears mildly sclerotic without stenosis or insufficiency. MITRAL VALVE Mild MV annular calcification without stenosis. Trace regurgitation. TRICUSPID VALVE TV appears structurally normal with trivial regurgitation. PULMONIC VALVE Normal PV without stenosis, physiologic insufficiency. GREAT VESSELS Aortic root is dilated. Ascending aorta is not well visualized. PERICARDIUM Normal pericardium. No effusion. Ascites is present. Other Information Study Quality: Adequate Conclusion Normal LV size and wall thickness. Overall systolic function is normal. LVEF is 65-70%. RV is normal size and function. Left atrium is mildly dilated. Trileaflet AV appears mildly sclerotic without stenosis or insufficiency. Mild MV annular calcification without stenosis. Trace regurgitation. TV appears structurally normal with trivial regurgitation. Normal pericardium. No effusion. Ascites is present.
--- NOTE | 2025-04-01 22:03 | PROGRESS NOTE ---
Daily Progress Note Providers to CC ~ Antibiotic Timeout Antibiotic Ordered?: No Subjective The patient feels better he however has significant distention and was abdomen however remains soft and has moderate to severe ascites on CT scan. The patient had a paracentesis in the ED on the with 7 L drained and a paracentesis is ordered for tomorrow. Objective Vital Signs Date Time Temp Pulse Resp B/P (MAP) Pulse Ox O2 Delivery O2 Flow Rate FiO2 04/01/25 18:30 105 04/01/25 16:43 98.5 21 117/70 (86) 96 Room Air 04/01/25 06:39 0.0 21 Result Diagram: 04/01/25 0208 04/01/25 1007 Gen. No acute distress alert and oriented 4 Lungs clear to ascultation bilaterally, no wheezes rales or rhonchi appreciated Heart normal sinus rhythm no murmurs rubs or clicks noted Abdomen moderate to significant distention soft nontender bowel sounds are normoactive Lower extremities no clubbing cyanosis, nor edema appreciated bilaterally Coagulation Studies Laboratory Tests Test 03/31/25 18:48 Prothrombin Time 30.7 SECONDS (9.0-12.0) H INR International Normalized Ratio 3.4 INR Activated Partial Thromboplast Time 49 SECONDS (22-32) H Coagulation Comments Problem\Assessment\Plan Problems/Diagnosis: (1) Hepatic encephalopathy Asymptomatic Hyponatremia: Possibly hypervolemic hyponatremia Sodium 124; 123 prior to paracentesis 2 days ago Serum osmolality low at 268. Awaiting urine osmolality and urine spot studies for more definitive etiology and management Hypervolemic component from ascites; status post 7 L paracentesis on 03/29/2025 1 L normal saline bolus received in the ER. Lasix 60mg/day. Aldactone 25mg/day to be continued Apart from optimizing diuretics, consider salt tablets if sodium fails to improve Optimize diuretics Lasix and Aldactone outpatient. Frequency of paracentesis is 2 times/month Close monitoring of BMP will be continued 04/01 improving continue to monitor Non-acute decompensated liver cirrhosis: Child Vitale C MELD-Na score 26 Absent features of hepatic encephalopathy Bilirubin 10.6, ammonia 113, INR 3.4, Albumin 1.2 One dose lactulose ordered, continue daily lactulose to aim for 3-4 bowel movements every day. Closely monitor BMP Outpatient evaluation by gynaecological oncologist for liver transplantation and GI for screening EGD S/P 7L ascitic tap 2 days ago, recommend repeat paracentesis evaluation in a.m. Screening AFP ordered Last drink two months ago Close monitoring for AMS 04/01 therapeutic paracentesis is ordered for tomorrow Nonspecific elevation of lipase: No acute pancreatitis features CT abdomen pelvis negative for pancreatitis No further management directed to this Daily lipase to monitor Hypochromic microcytic anemia: Serum iron level of 11 Start p.o. iron with vitamin-C Hypergammaglobulinemia: Serum electrophoresis and quantitative immunoglobulins studies ordered Lines: PIV Code status: Full code Diet: Regular DVT prophylaxis: SCDs GI prophylaxis: Protonix Date of Service: Apr 01, 2025 Billing Provider: INDU BURNETT DO Common Visit Codes: [id number] INP/OBS CARE(HIGH) INDU BURNETT DO Apr 01, 2025 22:03
[2025-04-02] VITALS (23 sets, daily range): BP systolic 92–112; BP diastolic 39–67; PULSE 71–118; RESP 14–25; TEMP 97.2–98.7; O2SAT 93–100
[2025-04-02 06:34] LABS: MEAN PLATELET VOLUME 8.5 FL (7.4-10.4); RED CELL DISTRIBUTION WIDTH 23.2 % (11.5-14.5)
[2025-04-02 06:54] LABS: CREATININE 1.01 MG/DL (0.60-1.10); TOTAL CARBON DIOXIDE 23.5 MMOL/L (24-32); eCRCL 87 ML/MIN; eGFR 79 ML/MIN
[2025-04-02] MEDS ORDERED: octreotide inj. 500 MCG in normal saline 100ml IV soln 97.5 ML IV SCH (07:25)
[2025-04-02] MEDS ORDERED: octreotide inj. 500 MCG in normal saline 100ml IV soln 100 ML IV SCH (07:33)
[2025-04-02] MEDS ORDERED: FERROUS SULFATE 142 MG TABLET.ER (45mg elemental) PO SCH (08:00)
[2025-04-02 08:44] LABS: EOSINOPHILS % (MANUAL) 2.0 % (0-6); LYMPHOCYTES % (MANUAL) 11.0 % (21-51); MONOCYTES % (MANUAL) 15.0 % (2-12); NEUTROPHILS % (MANUAL) 72.0 % (42-75)
[2025-04-02 08:45] LABS: PLATELET ESTIMATE NORMAL
[2025-04-02 08:46] LABS: ELLIPTOCYTES FEW
[2025-04-02] MEDS: propranolol 10mg tablet PO SCH (08:47)
[2025-04-02] MEDS: CefTRIAXone 2gm/D5W 50ml BAG 50 ML IV SCH (08:48)
[2025-04-02 09:03] LABS: C DIFF ANTIGEN NEGATIVE (NEGATIVE); C DIFF SPECIMEN=DIARRHEA? ACCEPTABLE; C DIFFICILE TOXINS A&B NEGATIVE (Neg)
[2025-04-02] MEDS: iron sucrose complex injection 200 MG in normal saline 100ml IV soln 100 ML IV ONE (13:32)
[2025-04-02] MEDS: octreotide inj. 500 MCG in normal saline 100ml IV soln 97.5 ML IV SCH (14:30)
--- NOTE | 2025-04-02 15:32 | RADIOLOGY REPORT ---
PROCEDURE: ULTRASOUND GUIDED PARACENTESIS HISTORY: 49 Male requiring paracentesis. TECHNIQUE: The risks and benefits of the procedure including but not limited to bleeding, infection and injury to abdominal organs were explained to the patient and written informed consent was obtained. Optimal site for puncture was determined using ultrasound and the area sterilized and draped. Using a 5 Spanish Yueh catheter, paracentesis was performed in the right lower quadrant abdomen. Approximately 4.0 liters of serous fluid was removed. The patient tolerated the procedure well. There were no immediate complications. IMPRESSION: Ultrasound-guided paracentesis with no immediate complications. Performed by Dr. Degroot.
[2025-04-02 17:34] LABS: INR 2.9 INR
--- NOTE | 2025-04-02 17:57 | PROGRESS NOTE ---
Daily Progress Note Providers to CC ~ Antibiotic Timeout Antibiotic Ordered?: Yes Subjective No acute events overnight. Patient examined at bedside. No new complaints, not in acute distress. Patient denies chest pain, sob, palpitations, abdominal pain, n/v/d. Vss, labs notable for persistent hyponatremia, Hgb 6.9g/dL, INR 3.4. Patient underwent paracentesis in the ED on the with 7L drained. Repeat paracentesis ordered. Continued on Lasix/spironolactone. Started ceftriaxone. Given 1 unit PRBC and FFP. Objective Vital Signs Date Time Temp Pulse Resp B/P (MAP) Pulse Ox O2 Delivery O2 Flow Rate FiO2 04/02/25 14:52 76 16 101/54 (70) 99 Room Air 04/02/25 14:50 97.2 04/01/25 06:39 0.0 21 Result Diagram: 04/02/2560704/02/25607 Physical Exam General: Generalized weakness, A&Ox 3, NAD, icterus HEENT: Normocephalic, PERRLA Neck: Supple, trachea midline, no JVD Chest: Clear to auscultation bilaterally Cardiovascular: RRR, S1&S2 GI: Distended Extremities: No cyanosis/clubbing/or edema OVEN ATTENDANT: CN II-XII intact, no focal deficits Musculoskeletal: No paraspinal muscle tenderness, no muscle spasm Skin: Warm and intact Coagulation Studies Laboratory Tests Test 03/31/25 18:48 04/02/25 17:02 Activated Partial Thromboplast Time 49 SECONDS (22-32) H Prothrombin Time 26.9 SECONDS (9.0-12.0) H INR International Normalized Ratio 2.9 INR Coagulation Comments Problem\Assessment\Plan Problems/Diagnosis: (1) Hepatic encephalopathy Assessment & Plan Acute decompensated liver failure, MELD-Na score 26 Cirrhosis Hypervolemic hyponatremia 2/2 above Hepatic encephalopathy Hypoalbuminemia 04/02: Patient underwent paracentesis in the ED on the with 7L drained. Repeat paracentesis ordered. On adjusted dose of Lasix/spironolactone, on lactulose, propranolol. Started ceftriaxone. Given 1 unit PRBC and FFP. INR 3.4 to 2.9, PLT wnl -pending UA Anemia, microcytic Fe-deficiency anemia 04/02: iron sucrose, given 1 unit PRBC Code status: Full code DVT prophylaxis: SCDs Date of Service: Apr 02, 2025 Billing Provider: ETHAN WOODARD Common Visit Codes: [id number] INP/OBS CARE(HIGH) ETHAN WOODARD Apr 02, 2025 17:57
[2025-04-02] MEDS ORDERED: oxyCODONE IR 5mg (immed. release) tablet PO PRN (18:05)
--- NOTE | 2025-04-02 21:07 | CONSULTATION REPORT - RESIDENT ---
Consult Providers to CC Resident Creating Document: LEIGHTON WHITESIDEBISI History of Present Illness Reason for Admit\Complaint: Decompensated liver failure History of Present Illness The pie bottomer team was consulted for a paracentesis in view of the patient's significant worsening ascites due to decompensated liver failure. This is a 49 years old male with a past medical history of alcohol liver cirrhosis diagnosed approximately 1-1/2 month ago who presented to the hospital along with the son with chief complaint of new onset diarrhea, nausea, vomiting. The patient was initially evaluated in the ER and was admitted for asymptomatic hyponatremia most likely secondary to hypovolemia. He is also being evaluated for decompensated liver cirrhosis with no signs or symptoms of hepatic encephalopathy. Reportedly the patient had paracentesis done on 03/29/2025 in the ER and approximately 7 L of fluid was removed. He currently complains of epigastric abdominal pain but denies any other concerns or complaints. His brother was at the bedside and an informed consent was taken prior to the paracentesis. All the risks and benefits were discussed with the patient's brother and an informed consent was taken. Allergies: Coded Allergies: No Known Allergies (Unverified , 03/31/25) Home Medications Home Medications Active Reported Vitamin K (Phytonadione) 100 Mcg Tablet 1 Tab PO DAILY 30 Days Spironolactone 100 Mg Tablet 1 Tab PO DAILY 30 Days Folic Acid* (Folic Acid) Y Tab 1 Tab PO DAILY 30 Days Lasix (Furosemide) 40 Mg Tablet 1 Tab PO DAILY 30 Days Ferrous Sulfate* (Ferrous Sulfate) 325 Mg Tablet 1 Tab PO DAILY Past Medical History Past Medical History Alcoholic liver cirrhosis Past Surgical History Surgical History Comment No significant surgical history Past Social History Social History Comment Heavy alcoholic for 25 years, last drink 2 months ago. Nonsmoker. No other illicit drug abuse Lives at home with his family. Primary Elijah speaking; [id number]. Ambulates independently without assistive devices ROS ROS As stated above in the HPI, otherwise all systems are reviewed and negative. Exam Vitals: Vital Signs Date Time Temp Pulse Resp B/P (MAP) Pulse Ox O2 Delivery O2 Flow Rate FiO2 04/02/25 18:30 77 04/02/25 14:52 16 101/54 (70) 99 Room Air 04/02/25 14:50 97.2 04/01/25 06:39 0.0 21 General: General: Awake and Alert, in moderate distress. Emaciated. HEENT: Conjunctiva pink, Sclera clear, Mucus Membranes moist. Neck: Supple without masses and tenderness. Resp: Unlabored. Lungs clear to auscultation bilaterally. Heart: Regular Rate and rhythm, normal S1 and S2 without murmur, rub or gallop. Abdomen: Significantly distended abdomen. Fluid thrill present. There is mild tenderness diffusely. Extremities: No cyanosis,clubbing or edema. Skin: Warm and Dry. Neurology: No focal motor or sensory deficits noted. Diagnostic Data Last Recorded Lab Results: 04/02/25 0608 04/02/25 0608 Diagnostic Data: Laboratory Tests Test 03/31/25 18:48 04/02/25 17:02 Activated Partial Thromboplast Time 49 SECONDS (22-32) H Prothrombin Time 26.9 SECONDS (9.0-12.0) H INR International Normalized Ratio 2.9 INR Coagulation Comments Additional Plan Decompensated liver cirrhosis Ascites Hyponatremia secondary to hypervolemia Hypoalbuminemia Microcytic anemia Iron-deficiency anemia The patient underwent paracentesis under ultrasound guidance. Approximately 4 L of fluid was removed from the abdomen. There were no complications during or after the procedure. The patient tolerated the procedure well. Thank you for letting us participate in the patient's care. Continue management as per the primary care team. CODE STATUS: Full code Disposition: Continue management as per the primary care team. Leighton Whiteside MD Internal Medicine Resident, PGY-3 Date of Service: Apr 02, 2025 Billing Provider: BRENT HALL MD,LEIGHTON CANO, RES Apr 02, 2025 21:07
[2025-04-02 21:25] LABS: MEAN PLATELET VOLUME 8.6 FL (7.4-10.4); RED CELL DISTRIBUTION WIDTH 24.7 % (11.5-14.5)
[2025-04-03] VITALS (10 sets, daily range): BP systolic 90–161; BP diastolic 36–88; PULSE 55–78; RESP 14–21; TEMP 97.7–98.7; O2SAT 94–99
[2025-04-03 03:38] LABS: MEAN PLATELET VOLUME 8.1 FL (7.4-10.4); RED CELL DISTRIBUTION WIDTH 25.8 % (11.5-14.5)
[2025-04-03 03:48] LABS: CREATININE 1.40 MG/DL (0.60-1.10); TOTAL CARBON DIOXIDE 24.5 MMOL/L (24-32); eCRCL 63 ML/MIN; eGFR 54 ML/MIN
[2025-04-03 05:14] LABS: HEPATITIS C VIRUS ANTIBODY Non Reactive (Non Reactive)
[2025-04-03 06:16] LABS: IMMUNOGLOBULIN G, QN, SERUM 3675 mg/dL (603-1613); IMMUNOGLOBULIN M, QN, SERUM 504 mg/dL (20-172)
[2025-04-03 06:57] LABS: MEAN PLATELET VOLUME 8.4 FL (7.4-10.4); RED CELL DISTRIBUTION WIDTH 25.7 % (11.5-14.5)
[2025-04-03] MEDS: albumin (human) 25% 100 ML IV solution IV ONE (07:55)
[2025-04-03] MEDS: midodrine tablet 2.5 MG TABLET PO SCH (08:06)
[2025-04-03 09:21] LABS: HBSAG SCREEN Negative (Negative); HEP A AB, IGM Negative (Negative); HEP B CORE AB, IGM Negative (Negative)
[2025-04-03 10:03] LABS: MEAN PLATELET VOLUME 8.4 FL (7.4-10.4); RED CELL DISTRIBUTION WIDTH 25.6 % (11.5-14.5)
[2025-04-03 11:51] LABS: LEUKOCYTE ESTERASE ,URINE NEGATIVE (Neg); OCCULT BLOOD,URINE TRACE-INTACT (Neg)
[2025-04-03 11:52] LABS: OSMOLALITY UA 405 MOSM/K (50-1400)
[2025-04-03 11:55] LABS: NITRITES, URINE NEGATIVE (Neg); UA COLLECTION TYPE VOIDED
[2025-04-03 11:59] LABS: AMORPHOUS URATES 1+; SQUAMOUS EPITHELIAL CELL,UR FEW /LPF (FEW)
--- NOTE | 2025-04-03 11:59 | CONSULTATION REPORT - RESIDENT ---
Consult Providers to CC Resident Creating Document: GABRIELGABRIEL REGALADOMISHA RES History of Present Illness Reason for Admit\Complaint: Reason for GI consult: Melena History of Present Illness 49 year old male patient with history of alcoholic liver cirrhosis. He presented to the hospital with chief complaint of new onset diarrhea, nausea and vomiting for approximately three episodes. Son who is at the bedside described a yellowish type vomiting. Denies any presence of blood at that time or coffee- ground vomiting. Patient has been tested for C diff infection with negative result. As per medical records and patient he has not been taking any NSAIDs, blood thinners. He has been sober for approximately one month and a half. He used to drink approximately half a bottle of heavy alcohol daily for approximately 25 years. GI was consulted due to the presence of melena for further management. Allergies: Coded Allergies: No Known Allergies (Unverified , 03/31/25) Home Medications Home Medications Active Reported Vitamin K (Phytonadione) 100 Mcg Tablet 1 Tab PO DAILY 30 Days Spironolactone 100 Mg Tablet 1 Tab PO DAILY 30 Days Folic Acid* (Folic Acid) Y Tab 1 Tab PO DAILY 30 Days Lasix (Furosemide) 40 Mg Tablet 1 Tab PO DAILY 30 Days Ferrous Sulfate* (Ferrous Sulfate) 325 Mg Tablet 1 Tab PO DAILY Past Medical History Past Medical History Alcohol liver cirrhosis Past Surgical History Surgical History Comment No surgical history Exam Vitals: Vital Signs Date Time Temp Pulse Resp B/P (MAP) Pulse Ox O2 Delivery O2 Flow Rate FiO2 04/03/25 06:00 75 04/03/25 03:00 98.2 16 92/50 (64) 94 Room Air 04/01/25 06:39 0.0 21 Physical exam: General: Awake, alert, oriented. No acute distress. Well-developed, thin patient. Jhon is evidenced in the sclerae. HEENT: Conjunctive are pale, icteric sclerae, pupil is equal in both sides, reactive to light, no ear discharge, no pharyngeal erythema or an edema. Neck: Supple, no adenopathy, thyromegaly. Trachea is midline. No JVD. Chest: Respiratory: Vesicular breath sounds. No ronchi, crepitus or wheezing. Resonance is normal upon percussion of all lung zhou. Cardiovascular: S1-S2 regular sinus rhythm and, regular rate, no gallops, no rubs, no murmurs Abdomen: Distended abdomen, tense, nontender. Extremities: No obvious deformities, no pitting edema bilaterally, capillary refill intact, peripheral pulsations are intact on both sides Neurologic: Mental status: alert and conscious, oriented to place, person and time, preserved memory, normal speech. Cranial nerves I-XII: Normal. Motor system: Preserved power, coordination, strength 5/5 in four extremities. Presence of asterixis in bilateral upper extremities. Sensory system: Preserved temperature, pain and vibration sensation. 2+ deep tendon reflexes in biceps, triceps, quadriceps. Negative Babinski. Cerebellar: No nystagmus, dysdiadochokinesia, normal [id number]-[id number] testing. Skin: Warm and dry. Diagnostic Data Last Recorded Lab Results: 04/03/25 0950 04/03/25 0322 Diagnostic Data: Laboratory Tests Test 03/31/25 18:48 04/02/25 17:02 Activated Partial Thromboplast Time 49 SECONDS (22-32) H Prothrombin Time 26.9 SECONDS (9.0-12.0) H INR International Normalized Ratio 2.9 INR Coagulation Comments Additional Plan Assessment and plan: 49-year-old male patient who presented to the hospital with chief complaint of diarrhea and vomiting. Melena described by the patient and son who was at the bedside. The patient has remained hemodynamically stable however hemoglobin and hematocrit has been dropping since admission requiring a total of 2 units of packed red blood cells, one more unit to be transfused today. The patient also had received 1 unit of fresh frozen plasma. GI was consulted due to the suspect of upper gastrointestinal bleeding. Upper gastrointestinal bleeding. 1) peptic ulcer disease. 2) unlikely esophageal varices because of the pattern of presentation. 3) Ryanne-Escalera tear. Very less likely. This diagnosis is considered because of the recent episodes of nausea and vomiting. The patient presented to the hospital with symptoms of diarrhea and vomiting. C diff has been ruled out so far. Recommendations: NPO after midnight. EGD tomorrow. Avoid NSAIDs or blood thinners. Continue Protonix 40 mg b.i.d. IV. Continue octreotide drip. Prophylaxis for spontaneous bacterial peritonitis with ceftriaxone 1 g IV daily. Code status: Full code DVT prophylaxis: SCDs Analgesia/sedation: None Line/tube: PIV GI prophylaxis: Protonix Nutrition: Clear liquid diet. NPO after midnight. PT: Yes Prognosis: Guarded Misha Cas Chocho Vera Internal Medicine Resident [facility] Date of Service: Apr 03, 2025 Billing Provider: JOHN JACKSON MD, FRANCO LUIS, RES Apr 03, 2025 11:59 JOHN JACKSON MD Apr 03, 2025 16:18
[2025-04-03 12:00] LABS: STARCH,URINE MODERATE /HPF (NEGATIVE)
[2025-04-03 12:04] LABS: CREATININE,URINE RANDOM 183.0 MG/DL; TOTAL PROTEIN,URINE RANDOM 34.6 MG/DL; UA UREA RANDOM 501.0 MG/DL
--- NOTE | 2025-04-03 14:43 | PROGRESS NOTE ---
Daily Progress Note Providers to CC ~ Antibiotic Timeout Antibiotic Ordered?: Yes Subjective No acute events overnight. Patient examined at bedside. No new complaints, not in acute distress. Patient denies chest pain, sob, palpitations, abdominal pain, n/v/d. Vss, labs notable for persistent hyponatremia, uptrend of Cr. Patient underwent paracentesis in the ED on the with 7L drained and on with 4L drained. Continued on Lasix/spironolactone. Given additional 1 unit PRBC and FFP. Given albumin. Consulted GI Dr. Deshpande, EGD tomorrow. Objective Vital Signs Date Time Temp Pulse Resp B/P (MAP) Pulse Ox O2 Delivery O2 Flow Rate FiO2 04/03/25 14:14 98.3 60 18 90/41 04/03/25 08:00 Room Air 0.0 04/03/25 03:00 94 04/01/25 06:39 21 Result Diagram: 04/03/25 0950 04/03/25 0322 Physical Exam General: Generalized weakness, A&Ox 3, NAD, icterus HEENT: Normocephalic, PERRLA Neck: Supple, trachea midline, no JVD Chest: Clear to auscultation bilaterally Cardiovascular: RRR, S1&S2 GI: Distended Extremities: No cyanosis/clubbing/or edema SINTERING PLANT SUPERVISOR: CN II-XII intact, no focal deficits Musculoskeletal: No paraspinal muscle tenderness, no muscle spasm Skin: Warm and intact Coagulation Studies Laboratory Tests Test 03/31/25 18:48 04/02/25 17:02 Activated Partial Thromboplast Time 49 SECONDS (22-32) H Prothrombin Time 26.9 SECONDS (9.0-12.0) H INR International Normalized Ratio 2.9 INR Coagulation Comments Problem\Assessment\Plan Problems/Diagnosis: (1) Hepatic encephalopathy Assessment & Plan Acute decompensated liver failure, MELD-Na score 26 Cirrhosis Hypervolemic hyponatremia 2/2 above Hepatic encephalopathy Hypoalbuminemia 04/02: Patient underwent paracentesis in the ED on the with 7L drained. Repeat paracentesis ordered. On adjusted dose of Lasix/spironolactone, on lactulose, propranolol. Started ceftriaxone. Given 1 unit PRBC and FFP. INR 3.4 to 2.9, PLT wnl -pending UA 10/15: s/p 2nd paracentesis with 4L drained on 04/02; Cr uptrended, albumin given, Hgb 6.9 today additional 1 unit PRBC, INR 2.9, FFP given. Consulted GI STACI Ibrahim tomorrow. Anemia, microcytic Fe-deficiency anemia 04/02: iron sucrose, given 1 unit PRBC Code status: Full code DVT prophylaxis: SCDs Date of Service: Apr 03, 2025 Billing Provider: ETHAN WOODARD Common Visit Codes: [id number] INP/OBS CARE(HIGH) ETHAN WOODARD Apr 03, 2025 14:43
[2025-04-03 16:59] LABS: MEAN PLATELET VOLUME 8.3 FL (7.4-10.4); RED CELL DISTRIBUTION WIDTH 26.0 % (11.5-14.5)
[2025-04-03 17:33] LABS: PLATELET ESTIMATE DECREASED
[2025-04-03 20:04] LABS: MEAN PLATELET VOLUME 8.7 FL (7.4-10.4); RED CELL DISTRIBUTION WIDTH 24.9 % (11.5-14.5)
--- NOTE | 2025-04-03 20:19 | PROCEDURE NOTE- Residance ---
Procedure Note Providers to CC CC: ROMA CARMICHAEL, BISI ~ Planned Procedure Paracentesis Indications Large volume ascites Ware[employer] Receiving Clerk Dr. Miesha Hall Type of Anesthesia Local Informed Consent Taken Description The risks and benefits of the procedure including but not limited to bleeding, infection and injury to abdominal organs were explained to the patient and written informed consent was obtained. Optimal site for puncture was determined using ultrasound and the area sterilized and draped. Using a 5 Spanish Yueh catheter, paracentesis was performed in the right lower quadrant abdomen. Approximately 4.0 liters of serous fluid was removed. The patient tolerated the procedure well. There were no immediate complications. Estimated Blood Loss None Complication None Date of Service: Apr 03, 2025 Billing Provider: BRENT HALL MD, SURYA PRATIK, BISI Apr 03, 2025 20:19
[2025-04-04] VITALS (22 sets, daily range): BP systolic 82–112; BP diastolic 32–84; PULSE 59–76; RESP 13–22; TEMP 97.1–98.3; O2SAT 91–100
[2025-04-04] MEDS ORDERED: propofol inj 20 ML IV ONE (08:56)
[2025-04-04 12:33] LABS: INR 2.9 INR
[2025-04-04 12:41] LABS: CREATININE 1.33 MG/DL (0.60-1.10); TOTAL CARBON DIOXIDE 20.3 MMOL/L (24-32); eCRCL 66 ML/MIN; eGFR 58 ML/MIN
[2025-04-04 15:40] LABS: MEAN PLATELET VOLUME 8.5 FL (7.4-10.4); RED CELL DISTRIBUTION WIDTH 25.2 % (11.5-14.5)
[2025-04-04] MEDS: iron sucrose complex injection 200 MG in normal saline 100ml IV soln 100 ML IV ONE (17:00)
--- NOTE | 2025-04-04 18:08 | PROGRESS NOTE ---
Daily Progress Note Providers to CC ~ Antibiotic Timeout Antibiotic Ordered?: Yes Subjective No acute events overnight. Patient examined at bedside. No new complaints, not in acute distress. Patient denies chest pain, sob, palpitations, abdominal pain, n/v/d. Vss, labs notable for persistent hyponatremia, slightly downtrended of Cr. H/H stable. Patient underwent paracentesis in the ED on the with 7L drained and on with 4L drained. Continued on Lasix/spironolactone. INR 2.9, given additional FFP. Given albumin. 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 Objective Vital Signs Date Time Temp Pulse Resp B/P (MAP) Pulse Ox O2 Delivery O2 Flow Rate FiO2 04/04/25 17:52 98.3 62 16 100/47 04/04/25 14:08 94 Room Air 04/04/25 11:30 0.0 04/01/25 06:39 21 Result Diagram: 04/04/25 1517 04/04/25 1158 Physical Exam General: Generalized weakness, A&Ox 3, NAD, icterus HEENT: Normocephalic, PERRLA Neck: Supple, trachea midline, no JVD Chest: Clear to auscultation bilaterally Cardiovascular: RRR, S1&S2 GI: Distended Extremities: No cyanosis/clubbing/or edema CALL PERSON: CN II-XII intact, no focal deficits Musculoskeletal: No paraspinal muscle tenderness, no muscle spasm Skin: Warm and intact Coagulation Studies Laboratory Tests Test 03/31/25 18:48 04/04/25 11:58 Activated Partial Thromboplast Time 49 SECONDS (22-32) H Prothrombin Time 26.9 SECONDS (9.0-12.0) H INR International Normalized Ratio 2.9 INR Coagulation Comments Problem\Assessment\Plan Problems/Diagnosis: (1) Hepatic encephalopathy Assessment & Plan Acute decompensated liver failure, MELD-Na score 26 Cirrhosis Portal hypertension Portal hypertensive gastropathy Hypervolemic hyponatremia 2/2 above Hepatic encephalopathy Hypoalbuminemia 04/02: Patient underwent paracentesis in the ED on the with 7L drained. Repeat paracentesis ordered. On adjusted dose of Lasix/spironolactone, on lactulose, propranolol. Started ceftriaxone. Given 1 unit PRBC and FFP. INR 3.4 to 2.9, PLT wnl -pending UA 04/03: s/p 2nd paracentesis with 4L drained on 04/02; Cr uptrended, albumin given, Hgb 6.9 today additional 1 unit PRBC, INR 2.9, FFP given. Consulted GI Dr. Deshpande, EGD tomorrow. 04/04: INR 2.9, given additional FFP. Given albumin. 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 Anemia, microcytic Fe-deficiency anemia 04/02: iron sucrose, given 1 unit PRBC 04/04: H/H stable Code status: Full code DVT prophylaxis: SCDs Date of Service: Apr 04, 2025 Billing Provider: ETHAN WOODARD Common Visit Codes: [id number] INP/OBS CARE(HIGH) ETHAN WOODARD Apr 04, 2025 18:08
[2025-04-05 00:18] VITALS: BP 103/74
[2025-04-05 02:00] VITALS: BP 94/44; PULSE 62; RESP 21; TEMP 97.4; O2SAT 90
[2025-04-05 06:00] VITALS: BP 94/44; PULSE 67; RESP 14; TEMP 97.2; O2SAT 96
[2025-04-05 06:57] LABS: MEAN PLATELET VOLUME 8.1 FL (7.4-10.4); RED CELL DISTRIBUTION WIDTH 25.6 % (11.5-14.5)
[2025-04-05 07:32] LABS: CREATININE 1.35 MG/DL (0.60-1.10); TOTAL CARBON DIOXIDE 22.9 MMOL/L (24-32); eCRCL 65 ML/MIN; eGFR 57 ML/MIN
[2025-04-05 08:05] LABS: PLATELET ESTIMATE DECREASED
[2025-04-05 08:10] VITALS: RESP 14; O2SAT 96
--- NOTE | 2025-04-05 09:10 | PROGRESS NOTE- Residence ---
Progress Note - Resident Providers to CC Resident Creating Document: FRACISCO REGALADOMISHA, RES ~ Antibiotic Timeout Antibiotic Ordered?: Yes Subjective The patient has been evaluated the bedside. No overnight events. Normal bowel movements reported yesterday. As per son the patient has been able to sleep better. Denies nausea or vomiting. Hemoglobin and hematocrit had remained stable. Objective Vital Signs Date Time Temp Pulse Resp B/P (MAP) Pulse Ox O2 Delivery O2 Flow Rate FiO2 04/05/25 06:30 73 04/05/25 06:00 97.2 14 94/44 (61) 96 Room Air 04/04/25 11:30 0.0 04/01/25 06:39 21 Physical exam: General: Awake, alert, oriented. No acute distress. Well-developed, thin patient. Jaundice evidenced in the sclerae. HEENT: Conjunctive are pale, icteric sclerae, pupil is equal in both sides, reactive to light, no ear discharge, no pharyngeal erythema or an edema. Neck: Supple, no adenopathy, thyromegaly. Trachea is midline. No JVD. Chest: Respiratory: Vesicular breath sounds. No ronchi, crepitus or wheezing. Resonance is normal upon percussion of all lung zhou. Cardiovascular: S1-S2 regular sinus rhythm and, regular rate, no gallops, no rubs, no murmurs Abdomen: Distended abdomen, tense, nontender. Extremities: No obvious deformities, no pitting edema bilaterally, capillary refill intact, peripheral pulsations are intact on both sides Neurologic: Mental status: alert and conscious, oriented to place, person and time, preserved memory, normal speech. Cranial nerves I-XII: Normal. Motor system: Preserved power, coordination, strength 5/5 in four extremities. Presence of asterixis in bilateral upper extremities. Sensory system: Preserved temperature, pain and vibration sensation. 2+ deep tendon reflexes in biceps, triceps, quadriceps. Negative Babinski. Cerebellar: No nystagmus, dysdiadochokinesia, normal licrbo-jl-[id number] testing. Skin: Warm and dry. Result Diagram: 04/05/2560504/05/25605 Coagulation Studies Laboratory Tests Test 03/31/25 18:48 04/04/25 11:58 Activated Partial Thromboplast Time 49 SECONDS (22-32) H Prothrombin Time 26.9 SECONDS (9.0-12.0) H INR International Normalized Ratio 2.9 INR Coagulation Comments Assessment Assessment 49-year-old male patient who presented to the hospital with chief complaint of diarrhea and vomiting. Melena described by the patient and son who was at the bedside. The patient has remained hemodynamically stable however hemoglobin and hematocrit has been dropping since admission requiring a total of 3 units of packed red blood cells and 3 units fresh frozen plasma. GI was consulted due to the suspect of upper gastrointestinal bleeding. Plan Plan EGD performed yesterday showed normal esophagus. Portal hypertensive gastropathy. Biopsied. 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 Hemoglobin and hematocrit has remained stable since yesterday. Recommendations: Continue regular diet. Await for pathology results. Can discontinue octreotide drip. Protonix 40 mg daily. We will sign off at this time; please contact us for any new or worsening GI issues. Code status: Full code DVT prophylaxis: SCDs Analgesia/sedation: None Line/tube: PIV GI prophylaxis: Protonix Nutrition: Regular diet. Prognosis: Guarded Misha Regalado Internal Medicine Resident [facility] Date of Service: Apr 05, 2025 Billing Provider: JOHN JACKSON MD,MISHA TABARES, RES Apr 05, 2025 09:10
[2025-04-05] MEDS: albumin (human) 25% 100 ML IV solution IV ONE (09:13)
[2025-04-05] MEDS ORDERED: potassium Cl 20 mEq SR tablet PO PRN (10:45)
[2025-04-05 11:00] VITALS: BP 113/62; PULSE 63; RESP 14; TEMP 97.3; O2SAT 99
[2025-04-05] MEDS: potassium Cl 20 mEq SR tablet PO PRN (11:50)
[2025-04-05] MEDS ORDERED: LACT-373 PO (12:11)
[2025-04-05] MEDS ORDERED: FURO-149 PO (12:11)
[2025-04-05] MEDS ORDERED: POTA-207 PO (12:11)
[2025-04-05] MEDS ORDERED: PANT40TA54 PO (12:11)
[2025-04-05] MEDS ORDERED: sodium bicarbonate tablet PO (12:11)
[2025-04-05] MEDS ORDERED: MIDO2.5T PO (12:11)
--- NOTE | 2025-04-05 14:51 | DISCHARGE SUMMARY ---
Discharge Summary Providers to CC ~ Discharge Summary Admission Diagnosis: Acute decompensated liver failure Hospital Course DATE OF ADMISSION: 03/31/25 DATE OF DISCHARGE: 04/05/25 Discharge Diagnosis\\Comment: Acute decompensated liver failure, MELD-Na score 26 Prerenal BRIAN 2/2 vasomotor nephropathy Cirrhosis Portal hypertension Portal hypertensive gastropathy Hypervolemic hyponatremia 2/2 acute liver failure Hepatic encephalopathy Hypoalbuminemia Anemia, microcytic Fe-deficiency anemia Operations\\Procedures: Paracentesis Consultants: Hermes Branch Dr. Complications: None Condition on DC: Stable New Medications: Furosemide (Lasix) 40 Mg Tablet 40 MG PO BID for 30 Days, #60 TAB Pantoprazole Sodium (Pantoprazole Sodium) 40 Mg Tablet.dr 40 MG PO DAILY for 30 Days, #30 TAB.SR Potassium Chloride* (K-Dur*) 20 Meq Tab.prt.sr 1 TAB PO DAILY for 30 Days, #30 TAB Lactulose (Lactulose) 10 Gram/15 Ml Solution 20 GM PO Q8H for 30 Days, #1800 ML Midodrine Hcl* (Proamatine*) 2.5 Mg Tablet 10 MG PO TID for 30 Days, #90 TAB [sodium bicarbonate tablet] () 650 MG TABLET 650 MG PO TID for 5 Days, #15 Continued Medications: Ferrous Sulfate* (Ferrous Sulfate*) 325 Mg Tablet 1 TAB PO DAILY, TAB Folic Acid* (Folic Acid*) Y Tab 1 TAB PO DAILY for 30 Days, #30 TAB 0 Refills Phytonadione (Vitamin K) 100 Mcg Tablet 1 TAB PO DAILY for 30 Days, #30 TAB 0 Refills Spironolactone (Spironolactone) 100 Mg Tablet 1 TAB PO DAILY for 30 Days, #30 TAB 0 Refills Discontinued Medications: Furosemide (Lasix) 40 Mg Tablet 1 TAB PO DAILY for 30 Days, #30 TAB 0 Refills Discharge Summary: History of Present Illness From H&P: "This is a 49-year-old male patient with relatively new diagnosis of alcoholic liver cirrhosis diagnosed one and a half month ago presents to the hospital with the son with primary complaints of new onset diarrhea, nausea and vomiting beginning today. The patient had 2 episodes of watery diarrhea and 2 episodes of vomiting containing plan fluid. In the ER, he was evaluated with for the laboratory evaluation was found to have hyponatremia. The patient denies symptoms of headache or dizziness. The son contributed to the history and denied any change in mental status over the last 1 and half month, reports ongoing daytime drowsiness since his diagnosis which has not changed recently. Additionally, complaints of mild epigastric abdominal pain. He has had no loss of appetite and was able to tolerate his diet. No hematemesis, hematochezia or melena. He recently had part 7 L of fluid removed through paracentesis on 03/29/2025 at [facility] ER. His sodium has remained in the 120s before and after the paracentesis but the rest of the labs including bilirubin and alkaline phosphatase are elevated today. His ammonia is 113, he is not a lactulose at home. He does take Lasix and Aldactone at home, which has been recently decreased to once a day dosing." Hospital Course Diagnostic findings were notable for transaminitis including elevated t.bili, CT abdomen/pelvis revealing liver cirrhosis with moderate to large volume ascites, INR 3.4, hyponatremia, elevated serum ammonia, elevated lipase, hypoalbuminemia. Pertinent negative findings were no hypoglycemia and no signs of infection. Patient underwent paracentesis with 7 L of fluid drained. Patient was started on empirical antibiotics, furosemide, spironolactone, lactulose, propranolol. Other findings were notable for anemia with hemoglobin of Hgb 6.9 g/dL. Patient received PRBC and FFP transfusions, octreotide, and PPI, which showed improvement of H/H and INR. Due to developing ascites, patient underwent 2nd paracentesis with 4 L of ascitic fluid drained. 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 Patient did not experience further complications throughout the entire hospital stay. Patient was seen and examined on the day of discharge. All labs, diagnostic workups, discharge plan discussed with patient in details during visit before discharge. All questions and concerns answered to the best of my professional knowledge. Patient is to be discharged with and to follow- up with PCP, GI Dr. Deshpande, and outpatient manager clinical within 2 weeks. Physical Exam General: Generalized weakness, A&Ox3, NAD, icterus HEENT: Normocephalic, PERRLA Neck: Supple, trachea midline, no JVD Chest: Clear to auscultation bilaterally Cardiovascular: RRR, S1&S2 GI: Distended Extremities: No cyanosis/clubbing/or edema LANDSCAPE CREW LEADER: CN II-XII intact, no focal deficits Musculoskeletal: No paraspinal muscle tenderness, no muscle spasm Skin: Warm and intact *Problems/Diagnosis: (1) Hepatic encephalopathy Status: Acute Total Time Spent on D/C: > 30 Minutes Date of Service: Apr 05, 2025 Billing Provider: ETHAN WOODARD Common Visit Codes: 21576-OTQ/OBS DISCH DAY >30min ETHAN WOODARD Apr 05, 2025 14:50
--- NOTE | 2025-04-09 11:20 | PATHOLOGY REPORT ---
[facility] [address] [place] [address] SURGICAL PATHOLOGY REPORT CaseNumber: [id number] Surgeon:Hermes Deshpande M.D. CLINICAL INFORMATION CLINICAL INFORMATION: Diarrhea, nausea, and vomiting. CLINICAL INFORMATION: Diarreah/NV. CLINICAL INFORMATION: Diarrhea, nausea, and vomiting. CLINICAL INFORMATION: Diarreah/NV. DIAGNOSIS DIAGNOSIS: A.DUODENUM; BIOPSY - CHRONIC INFLAMMATION WITH INCREASED INTRAEPITHELIAL LYMPHOCYTES, PARTIAL VILLOUS ATROPHY, AND REGENERATIVE CRYPT CHANGES. - SEE COMMENT. DIAGNOSIS: B.STOMACH, ANTRUM; BIOPSY - MINIMAL CHRONIC INFLAMMATION. - NEGATIVE FOR INTESTINAL METAPLASIA. - NEGATIVE FOR H. PYLORI BY IMMUNOPEROXIDASE STUDY. - NEGATIVE FOR DYSPLASIA/NEOPLASIA. COMMENT NOTE: Concerning part A: The chronic inflammatory changes noted are non- specific. In isolation celiac disease/sprue would be a consideration. However, given the clinical impression of a mass, the findings suggest that these are non-specific changes adjacent to an unsampled mass. In any case, there is no evidence of malignancy in this material. Dr. Jaun Ray has reviewed part B of this case and agrees with the interpretation. NOTE: Concerning part A: The chronic inflammatory changes noted are non- specific. In isolation celiac disease/sprue would be a consideration. However, given the clinical impression of a mass, the findings suggest that these are non-specific changes adjacent to an unsampled mass. In any case, there is no evidence of malignancy in this material. Dr. Jaun Ray has reviewed part B of this case and agrees with the interpretation. MICROSCOPIC DESCRIPTION A. DUODENUM MICROSCOPIC DESCRIPTION: One H&E stained slide from part A is examined. Present is small intestinal mucosa with some mucosal Maddy's glands consistent with stated site of origin. There is some (partial) shortening of villi. The lamina propria appears mildly expanded by mononuclear cells including plasma cells and eosinophils. There are increased intraepithelial lymphocytes. B. STOMACH, ANTRUM MICROSCOPIC DESCRIPTION: One H&E stained slide from part B is examined. Present is gastric antral mucosa which contains a minimal chronic inflammatory infiltrate composed predominately of lymphocytes. There is no significant active inflammation, no intestinal metaplasia, confirmed with Alcian blue/PAS stain and no dysplasia/neoplasia. Immunoperoxidase study for H. pylori does not highlight organisms. GROSS DESCRIPTION A. DUODENUM GROSS DESCRIPTION: Received in a container of formalin labeled with the patient's name, number, and "duodenal BX" are three pieces of gonzalez tissue 0.4 x 0.2 x 0.1-0.5 x 0.3 x 0.1 cm. The specimen is entirely submitted as A1. The time at which the specimen was removed was 907. The time at which the specimen was placed in formalin was 908. B. STOMACH, ANTRUM GROSS DESCRIPTION: Received in a container of formalin labeled with the patient's name, number, and "antrum BX" are two pieces of gonzalez tissue both 0.3 cm. The specimen is entirely submitted as B1.. The time at which the specimen was removed was 912. The time at which the specimen was placed in formalin was 913. Electronically signed by: Braulio Navarro M.D. 04/09/2025 10:49:00 AM
== END 2025-04-05 13:10 | disposition home health service (06) | DRG 280 ==
LOC: ER 18:07 → ED HOLD 20:58 → PCU 3S 04-01 03:43
PROVIDERS: ADMIT Internal Medicine Critical Care Medicine; ATTEND Family Medicine
PROC: BW211ZZ Computerized Tomography (CT Scan) of Abdomen and Pelvis using Low Osmolar Contrast (ICD-10-PCS; 2025-04-01)
PROC: 0W9G3ZZ Drainage of Peritoneal Cavity, Percutaneous Approach (ICD-10-PCS; principal; 2025-04-02)
PROC: 30233K1 Transfusion of Nonautologous Frozen Plasma into Peripheral Vein, Percutaneous Approach (ICD-10-PCS; 2025-04-02)
PROC: 30233N1 Transfusion of Nonautologous Red Blood Cells into Peripheral Vein, Percutaneous Approach (ICD-10-PCS; 2025-04-02)
PROC: 0DB98ZX Excision of Duodenum, Via Natural or Artificial Opening Endoscopic, Diagnostic (ICD-10-PCS; 2025-04-04)
PROC: 0DB78ZX Excision of Stomach, Pylorus, Via Natural or Artificial Opening Endoscopic, Diagnostic (ICD-10-PCS; 2025-04-04)
DX: K70.31 Alcoholic cirrhosis of liver with ascites (principal); N17.0 Acute kidney failure with tubular necrosis; C17.0 Malignant neoplasm of duodenum; D89.2 Hypergammaglobulinemia, unspecified; K76.6 Portal hypertension; E87.1 Hypo-osmolality and hyponatremia; D50.9 Iron deficiency anemia, unspecified; E88.09 Other disorders of plasma-protein metabolism, not elsewhere classified; K76.82 Hepatic encephalopathy; K31.89 Other diseases of stomach and duodenum; K72.00 Acute and subacute hepatic failure without coma; Z79.899 Other long term (current) drug therapy
CPT/HCPCS: 36415; 36430; 43239; 49083; 74177; 80048; 80053; 80320; 81001; 82103; 82140; 82436; 82570; 82728; 82784; 83540; 83690; 83735; 83880; 83930; 83935; 84133; 84155; 84156; 84165; 84300; 84466; 84540; 85007; 85008; 85025; 85027; 85610; 85730; 86334; 86705; 86709; 86803; 86885; 86900; 86901; 86920; 87081; 87088; 87324; 87340; 87449; 87522; 93306; 96360; 97116; 97161; 97530; 99285; A4620; A6449; A7000; C1729; G0378; J0696; J1756; J1938; J2354; J2470; J2704; J7030; J7040; P9016; P9047; P9059

== ENCOUNTER 2025-04-15 02:52 | Inpatient (IN) | payer MEDICAID ==
[2025-04-15] VITALS (13 sets, daily range): BP systolic 118–152; BP diastolic 62–93; PULSE 81–128; RESP 12–25; TEMP 96.6–98.3; O2SAT 97–100
[~2025-04-15] VITALS: Ht 172.7 cm; Wt 67.8 kg
[~2025-04-15 02:52] MED LIST: FERR325T28 PO; FOLI1TAB27 PO; FURO-149 PO; LACT-373 PO; MIDO2.5T PO; PANT40TA54 PO; PHYT100T PO; POTA-207 PO; SPIR100T5 PO; sodium bicarbonate tablet PO
--- NOTE | 2025-04-15 03:04 | ELECTROCARDIOGRAPH REPORT ---
[facility] Test Date: 2025-04-15 Test Time: 03:00:54 Pat Name: GIUSEPPE MOORE Department: [facility]ER Patient ID: [id number] Room: Gender: M Maintenance Man: : 1975 Requested By: NICOL ACEVEDO Order Number: [id number] Reading MD: Dr. Bhupendra Zambrano Measurements Intervals [place] Rate: 99 P: 17 NH: 213 QRS: 79 QRSD: 92 T: 62 QT: 375 QTc: 482 Interpretive Statements Sinus rhythm Prolonged NH interval Low voltage, precordial leads ST elevation, consider inferior injury Borderline prolonged QT interval Electronically Signed On 04-15-2025 6:15:[address] Bhupendra Zambrano Please click the below link to view image of tracing.
[2025-04-15 03:26] LABS: MEAN PLATELET VOLUME 8.6 FL (7.4-10.4); RED CELL DISTRIBUTION WIDTH 30.1 % (11.5-14.5)
--- NOTE | 2025-04-15 03:31 | RADIOLOGY REPORT ---
CHEST RADIOGRAPH Indication: Weakness Technique: Single frontal view of the chest was obtained COMPARISON: DI CHEST,SINGLE VIEW on DOS: 02/26/25 FINDINGS: Lines and Tubes: None Lungs: Clear. Mild right hemidiaphragmatic elevation. Pleura: No effusion. No pneumothorax. Cardiomediastinal contours: Unremarkable Bones: Unremarkable IMPRESSION: 1. No radiographic evidence of acute cardiopulmonary abnormality.
[2025-04-15 03:40] LABS: APTT 51 SECONDS (22-32); INR 2.8 INR
[2025-04-15 03:45] LABS: LACTIC SEPSIS 3.4 MMOL/L (0.4-2.0); PLATELET ESTIMATE DECREASED
[2025-04-15] MEDS: ondansetron/PF 4mg/2ml inj IV ONE (03:56)
--- NOTE | 2025-04-15 04:07 | Physician Documentation ---
History of Present Illness General Chief Complaint: ALOC Stated Complaint: SEE CHIEF COMPLAINT A ALS Time Seen by MD: 02:54 Primary Medical Doctor: [facility] History of Present Illness Initial Comments History, review of systems, physical examination are limited secondary to patient's clinical condition. According to the son, last known well was around 9:00 p.m.. According to the son the patient has a episode forceful yellow emesis. Almost immediately after the episode of emesis, without choking on his emesis, the patient had become altered. He is now staring off into space. He is not talking. He only looks that his son, turning his head slowly, but does not respond to any questioning and does not follow commands. Last paracentesis was 10 days ago. 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 Medication Reconciliation Allergies: Coded Allergies: No Known Allergies (Unverified , 04/15/25) Scheduled Ferrous Sulfate* (Ferrous Sulfate*), 1 TAB PO DAILY, (Reported) Folic Acid* (Folic Acid*), 1 TAB PO DAILY, (Reported) Furosemide (Furosemide), 1 TAB PO DAILY, (Reported) Lactulose (Lactulose), GM PO TID, (Reported) Midodrine Hcl (Midodrine Hcl), 1 TAB PO Q4H, (Reported) Pantoprazole Sodium (Pantoprazole Sodium), 1 TAB PO DAILY, (Reported) Phytonadione (Vitamin K), 1 TAB PO DAILY, (Reported) Potassium Chloride (Potassium Chloride), 1 TAB PO DAILY, (Reported) Spironolactone (Spironolactone), 1 TAB PO BID, (Reported) Discontinued Medications Folic Acid* (Folic Acid*), 1 TAB PO DAILY, (Reported) Discontinued Reason: completed med therapy Furosemide (Lasix), 40 MG PO BID Discontinued Reason: completed med therapy Lactulose (Lactulose), 20 GM PO Q8H Discontinued Reason: completed med therapy Midodrine Hcl* (Proamatine*), 10 MG PO TID Discontinued Reason: completed med therapy Pantoprazole Sodium (Pantoprazole Sodium), 40 MG PO DAILY Discontinued Reason: completed med therapy Potassium Chloride* (K-Dur*), 1 TAB PO DAILY Discontinued Reason: completed med therapy Spironolactone (Spironolactone), 1 TAB PO DAILY, (Reported) Discontinued Reason: completed med therapy [sodium bicarbonate tablet], 650 MG PO TID Discontinued Reason: completed med therapy Past Medical History Past Medical History: Liver Failure Review of Systems ROS Limited as above Physical Exam Physical Exam Vital Signs: Temperature: 97.8, Source: Oral, Weight: 66.200 Physical Exam GENERAL: Awake, no apparent distress, chronically ill appearing, he stares off i nto space, he does not not answers questions, he does not not follows commands appropriately. Examined on EMS [facility] and placed in bed there 16. HEENT: Atraumatic, normocephalic, pupils equal, extraocular muscles intact, sclerae notably icteric, mucus membranes moist, oropharynx is clear, no stridor. NECK: supple, full active range of motion, trachea midline, no thyromegaly, no l ymphadenopathy, no JVD. CARDIOVASCULAR: regular rate/rhythm, no murmurs/gallops/rubs, Pulses are 2+ in all extremities and symmetric. Capillary refill less than 2 seconds. PULMONARY: Nonlabored, good air movement ,no respiratory distress, clear to auscultation bilaterally, no wheezing, no ronchi, no rales, no accessory muscle use. GASTROINTESTINAL: Soft, non-tender, distended but not tympanic, positive fluid wave, normal active bowel sounds, no organomegaly, no pulsatile masses, no CVA tenderness. NEUROLOGIC: Awake with a very obviously altered mental status. Normal facial symmetry. Moves all extremities symmetrically and with purpose. No truncal ataxia. Nonverbal, but no focal deficits appreciated. MUSCULOSKELETAL: There is full range of motion of all extremities. There is no joint pain or joint swelling or joint erythema. There is no muscle pain or tenderness or swelling. EXTREMITIES: warm, well-perfused, no cyanosis, no clubbing, no edema, no acute deformities. Skin: warm, dry, no rashes or lesions, obvious jaundice despite dark skin pigment, no petechiae orpurpura. No ecchymosis. PSYCHIATRIC: Unable to assess Progress Results/Orders Results/Orders Orders - LOS WANG DO Culture Blood (04/15/25 02:54) Chest,Single View (04/15/25 02:54) Monitor (04/15/25 02:54) Oxygen (04/15/25 02:54) Saline Lock (04/15/25 02:54) Ct Head (04/15/25 02:54) Straight Cath For Urine Sample (04/15/25 02:54) Ct Abdomen Pelvis (04/15/25 03:19) Completed Orders - LOS WANG DO Ethanol (04/15/25 02:54) Ammonia (04/15/25 02:54) Drug Screen, Urine (04/15/25 02:54) Ondansetron Inj. (Zofran 4mg/2ml Vial) (04/15/25 02:55) Electrocardiogram (04/15/25 02:54) Cbc/Diff (04/15/25 02:54) Lipase (04/15/25 02:54) Pt Inr (04/15/25 02:54) PTT (04/15/25 02:54) Chest,Single View (04/15/25 02:54) PBNP (04/15/25 02:54) MG (04/15/25 02:54) CMP (04/15/25 02:54) Hs Troponin I W Calculations (04/15/25 02:54) Hs Troponin I W Calculations (04/15/25 04:54) Lacticsepsis (04/15/25 02:54) Lactic,2hr (04/15/25 04:45) Ua W/Microscopic, Cult If Ind (04/15/25 04:59) Iohexol 300mg/Ml 100ml Inj. (Omnipaque-3 (04/15/25 05:43) Medications Received in ER Medications (Trade) Dose Ordered Sig/Adriana Route PRN Reason Start Time Stop Time Status Last Admin Dose Admin (Zofran 4mg/2ml vial) 8 mg ONCE ONCE IV 04/15/25 02:55 04/15/25 02:58 DC 04/15/25 03:56 8 MG Vital Signs 04/15/25 04/15/25 04/15/25 04/15/25 02:56 03:00 04:38 05:34 Temp 97.8 Pulse 95 Resp 15 17 B/P (MAP) 113/78 (90) Pulse Ox 96 98 O2 Delivery Nasal Cannula* O2 Flow Rate 2 0 FiO2 28 04/15/25 05:34 Temp 97.8 Pulse 94 Resp 17 B/P (MAP) 117/81 (93) Pulse Ox 97 O2 Flow Rate 0 Laboratory Tests Test 04/15/25 03:11 04/15/25 04:58 04/15/25 04:59 White Blood Count 7.9 Red Blood Count 3.78 L Hemoglobin 10.2 L Hematocrit 30.9 L Mean Corpuscular Volume 81.6 Mean Corpuscular Hemoglobin 27.0 Mean Corpuscular Hemoglobin Concent 33.1 Red Cell Distribution Width 30.1 H Platelet Count 135 L Mean Platelet Volume 8.6 Neutrophils (%) (Auto) 82.1 H Lymphocytes (%) (Auto) 8.8 L Monocytes (%) (Auto) 8.3 Eosinophils (%) (Auto) 0.4 Basophils (%) (Auto) 0.4 Neutrophils # (Auto) 6.5 Lymphocytes # (Auto) 0.7 L Monocytes # (Auto) 0.7 Eosinophils # (Auto) 0.0 Basophils # (Auto) 0.0 CBC Comment Platelet Estimate Decreased Red Blood Cell Morphology Perf Poikilocytosis 3+ Basophilic Stippling Anisocytosis 3+ Microcytosis 1+ Target Cells 2+ Tear Drop Cells Few [place] Cells 1+ Acanthocytes 1+ Rouleau 2+ Prothrombin Time 26.0 H INR International Normalized Ratio 2.8 Activated Partial Thromboplast Time 51 H Coagulation Comments Sodium Level 127 L Potassium Level 4.8 Chloride Level 97 L Carbon Dioxide Level 21.1 L Anion Gap 9 Blood Urea Nitrogen 36 H Creatinine 1.30 H Estimated GFR/1.73 m2 59 BUN/Creatinine Ratio 27.7 H Glucose Level 115 H Lactic Acid Level 3.4 H 3.3 H Calcium Level 8.7 Magnesium Level 1.8 Total Bilirubin 13.2 H Aspartate Amino Transf (AST/SGOT) 86 H Alanine Aminotransferase (ALT/SGPT) 36 Alkaline Phosphatase 126 H Ammonia 82 H Troponin I High Sensitivity 11 9 Pro-B-Type Natriuretic Peptide 176 H Total Protein 8.1 Albumin 1.4 L Globulin 6.7 H Albumin/Globulin Ratio 0.2 L Lipase 303 H Chemistry Comments Ethyl Alcohol Level < 10 Troponin I High Sens Percent Delta 18 Troponin I Hi Sens Absolute Change -2 Urine Specimen Description Non-specified Urine Color Jaimee Urine Clarity Clear Urine pH 5.5 Urine Specific [place] 1.020 Urine Protein Negative Urine Glucose (UA) Negative Urine Ketones Negative Urine Occult Blood Trace-intact Urine Nitrite Negative Urine Bilirubin Moderate Urine Urobilinogen 0.2 Urine Leukocyte Esterase Negative Urine RBC 0-2 Urine WBC 0-4 Urine Squamous Epithelial Cells Few Urine Bacteria 1+ Urine Culture Indicated Not ind Volume Urine Centrifuged 10 ml Urine Comment Urine Opiates Screen Negative Urine Methadone Screen Negative Urine Fentanyl Screen Negative Urine Barbiturates Screen Negative Urine Phencyclidine Screen Negative Urine Amphetamines Screen Negative Urine Benzodiazepines Screen Negative Urine Cocaine Screen Negative Urine Cannabinoids Screen Positive Drug Screen Comment Microbiology Date/Time Source Procedure Growth Status 04/15/25 03:11 Blood Forearm Right Blood Culture - Preliminary NEGATIVE (LESS THAN 24 HOURS) Resulted EKG/XRAY/CT/US/VASC/MRI EKG : Additional Comment EKG was obtained and interpreted by myself shows sinus rhythm of 99, prolonged ME interval, narrow QRS, no QT prolongation, normal axis, no STEMI. Medical Decision Making Additional information obtaine: old records, family, other (EMS) Findings Facility Status: ED Holds, RME process The plan was discussed with the patient, who demonstrates clear understanding of the plan and is in agreement with the plan unless otherwise noted in the chart. All questions have been answered, all concerns were addressed unless otherwise documented. I was available throughout their ED stay for frequent reassessment and questions. Differential Diagnoses (considered and possible or likely): [Hypoglycemia, electrolyte derangement, hepatic encephalopathy, alcohol intoxication, alcohol withdrawal, drug toxidrome, less likely renal encephalopathy, less likely acute intracranial process or bleed. Clinically unlikely to be spontaneous bacterial peritonitis. He had a renal syndrome had also been considered although the sudden onset of symptoms was somewhat suspicious. Seizure had also been considered.] ??Differential Diagnoses (considered and unlikely, not requiring evaluation currently): [No evidence of trauma] MDM Data Please see [facility] for the following: Independent Historians and external Records Review. Historian: Patient's son Independent Historians: ?[EMS, record review] Medication Management: [Reviewed medication list] Social History and determinants: [Reviewed] Please see the body of the note for the following: Any independent interpretations of ECG, imaging studies. All vitals signs/haemodynamics, ordered tests were independently reviewed and interpreted by myself. Nursing triage complaint and vitals reviewed, additional nursing notes were reviewed as available and I agree unless otherwise noted or documented in contradiction in the chart Vital Signs: Independently reviewed Labs: Independently interpreted Imaging: Independently interpreted Old Medical Records: Independently reviewed, see [facility] for relevant summary and information Pulse Oximetry: [97%] interpreted as [normal on room air] by me [Steel Sampler: [Regular Rate, Regular rhythm, no ectopy, NSR] reviewed and interpreted by me] Additionally notably showing: [Hemodynamically he is stable. CBC shows stable anemia, stable thrombocytopenia. Coagulation panel shows INR of 2.8. Lactic acid is elevated 3.4, most likely related to alcoholic liver disease rather than a seizure. Ammonia is elevated concerning for hyperammonemia and hepatic encephalopathy. Metabolic panel notable for a stable kidney disease, hyponatremia. Lipase is once again elevated concerning for mild pancreatitis.] Tests considered but not ordered include: [MRI can be done on an inpatient basis] Social Determinants of Health Impact: Patient was [facility] in [facility] [place] to healthcare due to below par ratio of patient to medical providers. [] Comorbid Conditions Impacting Present Evaluation and Care/Treatment: [End-stage liver disease] Management Discussions with other Healthcare Providers: [] Treatment and Disposition Medication Management (Given or considered): []. See EMR for details Consideration for Hospitalization/Escalation/Deescalation of Care: Admission for observation has been considered, and we will be necessary for further management of his altered mental status ?ED Course:?[Date: Apr 15, 2025 Time: 04:11 anemia is improved, INR stable, ammonia is notably increased. CKD stable. Lipase is increased. Date: Apr 15, 2025 Time: 06:09 patient was signed out to Dr. Zambrano pending final disposition after imaging. ] ?Shared decision making:?[] Code status:?FULL Please see the full Electronic Medical Record for full details of nursing documentation, medications list, other records of complete past medical history and conditions, vital signs, laboratory studies, and any radiologic study interpretations by radiologists. Portions of this note were completed using [employer] dictation software and as a result there may exist minor errors in spelling. I have reviewed elements of past family and social history and agree as included in note. Differential Diagnosis See the main body of the note Departure Disposition: 09 ADMITTED INPATIENT Impression: Primary Impression: Altered mental status Additional Impressions: Hepatic encephalopathy Anemia Hyperammonemia Bilious emesis Acute on chronic pancreatitis Chronic kidney disease Hypoalbuminemia Referrals: NO PRIMARY CARE PROVIDER (PCP) Signature Scribe Signature: No scribe Attestation: Date: Apr 15, 2025 Time: 04:07 This note accurately reflects clinical decisions, work performed by myself, Los Wang, LOS BRADLEY DO Apr 15, 2025 04:07
[2025-04-15 04:28] LABS: CREATININE 1.30 MG/DL (0.60-1.10); TOTAL CARBON DIOXIDE 21.1 MMOL/L (24-32); eCRCL 66 ML/MIN; eGFR 59 ML/MIN
[2025-04-15 04:35] LABS: PRO BRAIN NATRIURETIC PEPTIDE 176 PG/ML (0-125)
[2025-04-15 04:37] LABS: ETHANOL < 10 MG/DL (<10)
[2025-04-15] MEDS ORDERED: FURO80TA3 PO (04:40)
[2025-04-15] MEDS ORDERED: POTA-208 PO (04:42)
[2025-04-15] MEDS ORDERED: SPIR100T5 PO (04:43)
[2025-04-15] MEDS ORDERED: MIDO10TA3 PO (04:45)
[2025-04-15] MEDS ORDERED: PANT40TA54 PO (04:47)
[2025-04-15] MEDS ORDERED: LACT20PA7 PO (04:49)
[2025-04-15 05:16] LABS: LEUKOCYTE ESTERASE ,URINE NEGATIVE (Neg); NITRITES, URINE NEGATIVE (Neg); OCCULT BLOOD,URINE TRACE-INTACT (Neg)
[2025-04-15 05:21] LABS: UA COLLECTION TYPE NON-SPECIFIED
[2025-04-15 05:23] LABS: SQUAMOUS EPITHELIAL CELL,UR FEW /LPF (FEW)
[2025-04-15 05:27] LABS: URINE AMPHETAMINE SCREEN NEGATIVE (Neg); URINE BARBITUATE SCREEN NEGATIVE (Neg); URINE BENZODIAZEPINES SCREEN NEGATIVE (Neg); URINE CANNABINOID SCREEN POSITIVE (Neg); URINE COCAINE SCREEN NEGATIVE (Neg); URINE METHADONE SCREEN NEGATIVE (Neg); URINE OPIATE SCREEN NEGATIVE (Neg); URINE PHENCYCLIDINE SCREEN NEGATIVE (Neg)
[2025-04-15] MEDS ORDERED: iohexol 300mg/ml 100ml inj. ONE (05:43)
--- NOTE | 2025-04-15 07:22 | RADIOLOGY REPORT ---
EXAM: CT CT HEAD INDICATION: Altered mental status TECHNIQUE: CT of the head without intravenous contrast. Coronal and sagittal reformatted images are submitted. Radiation Dose : 1. Head: CT Dose: CTDI volume is 68.5 mGy. Dose-length product is 1150.7 mGy*cm The dose indicators for CT are the volume Computed Tomography (CT) Dose Index (CTDIvol) and the Dose Length Product (DLP), and are measured in units of mGy and mGy-cm, respectively. These indicators are not patient dose, but values generated from the CT scanner acquisition factors. The report includes radiation exposure data for exposures received during this examination. All CT scans at this medical facility are performed using dose modulation techniques as appropriate to a performed exam including the following: Automated exposure control was utilized; adjustment of the MA and/or KV according to patient size; and use of iterative reconstruction technique. COMPARISON: None FINDINGS: There is no evidence of acute intracranial hemorrhage, extra-axial collection, mass effect, midline shift, herniation or hydrocephalus. The ventricles, sulci and cisterns are age appropriate. The faustin-white differentiation is intact. The visualized paranasal sinuses and mastoid air cells are clear. No depressed calvarial fracture. The surrounding soft tissues are unremarkable. IMPRESSION: 1. No evidence of acute intracranial abnormality.
--- NOTE | 2025-04-15 07:29 | RADIOLOGY REPORT ---
Exam: CT CT ABDOMEN PELVIS W/ IV CONTRAST History: Abd pain, distension. Comparison Study: CT CT ABDOMEN PELVIS on DOS: 03/31/25. Contrast: Type of contrast: Omnipaque 300 Contrast injected: 100 mL Contrast wasted: 0 TECHNIQUE: CT of the abdomen pelvis was performed with intravenous contrast. Coronal and sagittal reformatted images are submitted. Radiation Dose Information: CT Dose: CTDI volume is 12.7 mGy. Dose-length product is 812.2 mGy*cm FINDINGS: Lung Bases: No acute or significant lung base finding. Normal heart size. No pleural or pericardial effusion. Liver: The liver is normal in size. Nodular contour of the liver. No focal lesions. Normal hepatic vascular enhancement. Recanalized paraumbilical vein. Gallbladder and Biliary Tree: The gallbladder is unremarkable. Spleen: Spleen is enlarged measuring 16.0 cm. Pancreas: The pancreas is normal in appearance without focal lesions or abnormal enhancement. Adrenal Glands: Unremarkable Kidneys: Kidneys demonstrate normal symmetric enhancement without focal lesions, calculi or hydronephrosis. Bladder: Unremarkable Bowel: The stomach is grossly normal in appearance. Small bowel and colon are normal in caliber and distribution. The appendix is not visualized; however, no secondary findings of acute appendicitis identified. Ascites: Large volume ascites noted. Lymphadenopathy: No mesenteric, retroperitoneal or periportal lymphadenopathy. Abdominal Wall and Mesentery: Unremarkable. Vasculature: The visualized abdominal aorta is normal in size and caliber. Abdominal and pelvic vessels demonstrate normal enhancement. Pelvic Organs: Unremarkable Musculoskeletal: No aggressive focal bony lesions, acute fractures or dislocation. Soft tissues: Unremarkable. IMPRESSION: 1. Cirrhosis with sequela of portal hypertension including splenomegaly and large volume ascites.
[2025-04-15] MEDS: lactulose 20gm/30ml cup PO ONE (07:43)
[2025-04-15] MEDS ORDERED: magnesium hydroxide 30ml (MOM) UD suspension PO PRN (08:35)
[2025-04-15] MEDS ORDERED: magnesium sulf-water 4G/100mL 100 ML IV PRN (08:35)
[2025-04-15] MEDS ORDERED: magnesium Cl slow-release 64mg tablet PO PRN (08:35)
[2025-04-15] MEDS ORDERED: magnesium sulf-water 2g/50mL 50 ML IV PRN (08:35)
[2025-04-15] MEDS ORDERED: potassium Cl 20 mEq SR tablet PO PRN ×2 (08:35)
[2025-04-15] MEDS ORDERED: mag hydrox/Alum hydrox/simeth 30ml oral suspension PO PRN (08:35)
[2025-04-15] MEDS: normal saline 1000ml 1,000 ML IV SCH ×2 (08:40→08:47)
[2025-04-15] MEDS: LidoCAINE 2% Topical Jelly 11mL syringe (UROJET) TOP ONE (08:45)
[2025-04-15] MEDS: albumin (human) 25% 100 ML IV solution IV ONE (08:46)
[2025-04-15 09:24] LABS: PHOSPHORUS 3.7 MG/DL (2.3-4.5)
[2025-04-15] MEDS ORDERED: CefTRIAXone/D5W-Rocephin 1gm 50 ML IV SCH (10:35)
[2025-04-15] MEDS ORDERED: lactulose 20gm/30ml cup NG SCH (10:35)
[2025-04-15] MEDS ORDERED: dextrose 50%-water 50ml dispensing syringe IV PRN ×2 (10:45)
[2025-04-15] MEDS ORDERED: DEXTROSE 15 GM of carb/4 tabs (each vial/BOTTLE has 4 tablets) PO PRN ×2 (10:45)
[2025-04-15] MEDS ORDERED: glucagon, human recombinant 1mg kit SUBCUT PRN (10:45)
[2025-04-15] MEDS: CefTRIAXone/D5W-Rocephin 1gm 50 ML IV SCH (11:31)
[2025-04-15 11:32] LABS: CREATININE,URINE RANDOM 44.0 MG/DL; TOTAL PROTEIN,URINE RANDOM 12.3 MG/DL
[2025-04-15 11:36] LABS: OSMOLALITY UA 516.0 MOSM/K (50-1400)
--- NOTE | 2025-04-15 11:54 | RADIOLOGY REPORT ---
Exam: DI ABDOMEN,SINGLE VIEW(KUB) Indication: POST NGT PLACEMENT Comparison: CT CT ABDOMEN PELVIS W/ IV CONTRAST on DOS: 04/15/25, CT CT ABDOMEN PELVIS on DOS: 03/31/25, CT CT ABDOMEN PELVIS W/ IV CONTRAST on DOS: 02/26/25 Technique: 1 radiographic views of the abdomen. Findings: Enteric catheter in satisfactory position. Nonspecific bowel-gas pattern. There is no definite evidence for pneumoperitoneum. No abnormal calcifications noted. Impression: Enteric catheter in satisfactory position.
[2025-04-15] MEDS: INSULIN LISPRO 100 UNIT/ML INSULN.PEN MULTI-DOSE SQ SCH (12:00)
[2025-04-15] MEDS: lactulose 20gm/30ml cup NG SCH ×3 (12:13→19:17)
[2025-04-15] MEDS ORDERED: rifaximin 550mg tablet PO SCH (13:35)
[2025-04-15] MEDS: thiamine 100mg/ml 2ml inj. IV SCH (14:20)
--- NOTE | 2025-04-15 16:04 | HISTORY AND PHYSICAL-Residence ---
History & Physical Providers to CC Resident Creating Document: TORIBIOROBIN RES ~ History of Present Illness Primary Medical Doctor: [facility] Reason for Admit\Complaint: AMS History of Present Illness 49-year-old male with history of decompensated liver failure, alcoholic cirrhosis, portal hypertension, portal hypertensive gastropathy was brought to the ER by son due to altered mental status. He states that the patient coughed and had an episode of forceful yellow emesis yesterday at night. Immediately after the emesis, patient became altered and started staring off into space without response. Patient does not respond to any questions, stares at roof and responds only to pain. He has been a heavy alcoholic for the past 25 years and was recently diagnosed with alcoholic liver cirrhosis about 2 months ago. I spoke to his sister and she states that he has stopped drinking 3 months ago. She states that there was no blood in vomit and he did not have any seizures. He just stopped talking and responding after emesis. He was admitted recently on March 31, 2025 for acute decompensated liver cirrhosis with MELD-Na score of 26 and 4 L of fluid was removed by paracentesis He was discharged with Lasix, spironolactone, lactulose. The son stated that the patient was noncompliant with lactulose. He lives with family at home He can ambulate independently He goes to [facility] He visited liver specialist at [facility] Allergies: Coded Allergies: No Known Allergies (Unverified , 04/15/25) Home Medications Home Medications Active Reported Lactulose 20 Gram Packet Gm PO TID Folic Acid* (Folic Acid) Y Tab 1 Tab PO DAILY 30 Days Pantoprazole Sodium 40 Mg Tablet.dr 1 Tab PO DAILY 30 Days Midodrine Hcl 10 Mg Tablet 1 Tab PO Q4H 30 Days Spironolactone 100 Mg Tablet 1 Tab PO BID 30 Days Potassium Chloride 20 Meq Tab.prt.sr 1 Tab PO DAILY 30 Days Furosemide 80 Mg Tablet 1 Tab PO DAILY Vitamin K (Phytonadione) 100 Mcg Tablet 1 Tab PO DAILY 30 Days Ferrous Sulfate* (Ferrous Sulfate) 325 Mg Tablet 1 Tab PO DAILY Past Medical History Past Medical History Acute Decompensated liver failure Alcoholic cirrhosis Hepatic encephalopathy BRIAN Portal hypertension Portal hypertensive gastropathy Past Surgical History Surgical History Comment No significant surgical history Past Social History Social History Comment Heavy alcoholic for 25 years, I spoke to his sister and she states that he has stopped drinking 3 months ago. He is a nonsmoker and no other illicit drug abuse He lives at home with his family He ambulates independently He goes to [facility] He visited liver specialist at [facility] ROS ROS Unable to obtain ROS, patient responds only to pain Exam Vitals: Vital Signs Date Time Temp Pulse Resp B/P (MAP) Pulse Ox O2 Delivery O2 Flow Rate FiO2 04/15/25 11:24 97.4 81 18 127/65 (85) 100 Room Air 04/15/25 08:58 0 04/15/25 03:00 28 General: Patient is obtunded, confused and unable to communicate, only reacts to pain, eyes are open staring into space HEENT: icteric sclera ; dry mucous membranes, NG tube in place Neck: Supple, no tenderness Cardiac: Regular rhythm, regular rate with no murmurs all over the precordium. Respiratory: Equal breath sounds bilaterally, no tachypnea, no wheezing ,rub or rales. Gastrointestinal: Abdomen distended, soft, diffuse tenderness present, normal bowel sounds, fluid thrill present, spleen palpable Musculoskeletal: No pedal edema, no cyanosis Neurological: Obtunded, confused and unable to communicate, only reacts to pain Skin: Warm and dry Diagnostic Data Last Recorded Lab Results: 04/15/25 0311 04/15/25 0311 Diagnostic Data: Laboratory Tests Test 04/15/25 03:11 Prothrombin Time 26.0 SECONDS (9.0-12.0) H INR International Normalized Ratio 2.8 INR Activated Partial Thromboplast Time 51 SECONDS (22-32) H Coagulation Comments Advance Care Planning Advanced Care plannin - 30 Minutes (Full Code) Additional Plan Hepatic encephalopathy Decompensated alcoholic liver cirrhosis Child Vitale C MELD-Na score 33 Patient is obtunded, only reacts to pain Last drink was 3 months ago Ammonia is 82, Total bilirubin-13.2, Albumin- 1.4, INR- 2.8, platelet count-135 Abdomen/Pelvis CT shows versus with sequelae of portal hypertension including splenomegaly and large volume ascites 4 L of ascitic fluid removed in previous admission on March 31, recommend repeat paracentesis Patient failed swallow test, hence NG tube was placed and started on lactulose 20 g q.2h to aim for 3-4 bowel movements every day Started on rifaximin Mild bleeding while NG tube placement, gastroenterology, Dr. 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 AFP recently done in March is normal Lactic acid was elevated, NS was started at 75 ml/hr Abdominal tenderness present on palpation, likely SBP - IV ceftriaxone 1 g daily Monitor AMS Acute kidney injury, possibly prerenal due to splanchnic vasodilation from liver failure Creatinine is elevated 1.3, baseline creatinine is 0.9 Fena 0.4 %, prerenal BRIAN IV albumin q.8h Monitor I&O History of alcohol use Started on alcohol withdrawal protocol ethyl alcohol<10 Urine Tox screen positive for cannabinoids IV thiamine, IV folic acid given agricultural services director and substance use navigator consulted Hypervolemic Isotonic Hyponatremia, due to cirrhosis Sodium is 127 Serum Osmolality is normal-287 Urine Osmolality is 516 Urine Sodium is 18 Continued Aldactone 100 mg b.i.d. Monitor BMP Nonspecific elevation of lipase: No acute pancreatitis features CT abdomen pelvis ruled out acute pancreatitis No further management directed to this Code status: Full code DVT prophylaxis: SCD Diet/nutrition: 2 gm sodium restricted diet Prognosis: Guarded Disposition: Monitor AMS, continue medical management, PT eval and DC plan Resident MD attestation: The patient note has been reviewed and supervised by senior residents PGY-2/ PGY-3. Patient was seen, examined and discussed with attending physician. Robin Rooney MD Internal Medicine resident, PGY-1 Date of Service: Apr 15, 2025 Billing Provider: BRITTNEY LOCKHART MD Common Visit Codes: [id number] INP/OBS CARE (HIGH) Secondary Visit Codes: 05925-[id number] CARE PLAN 30 MINUTES ROBIN RONOEY, RES Apr 15, 2025 16:04 BRITTNEY LOCKHART MD Apr 24, 2025 07:41
--- NOTE | 2025-04-15 16:50 | CONSULTATION REPORT - RESIDENT ---
Consult Providers to CC Resident Creating Document: LENNY CONN RES History of Present Illness Reason for Admit\Complaint: ALOC History of Present Illness This is a 49-year-old male with newly diagnosed alcohol associated liver cirrhosis, diagnosed approximately two months ago, who presents with altered mental status, confusion, and obtundation. The patient was previously admitted to [facility] from March 31-2024, for acute decompensated liver failure with a MELD score of 26 at that time. 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 Pathology revealed chronic inflammation with increased intraepithelial lymphocytes, partial villous blunting, and regenerative crypt changes, without evidence of malignancy. Antrum biopsy was negative for metaplasia, H pylori or dysplasia/neoplasia. Additionally, patient had massive ascites, and 7 L of fluid were removed via paracentesis on March 29, 2025, in the [facility] ER. His serum sodium has been chronically low, consistent with a advanced cirrhosis and dilutional hyponatremia. The patient was readmitted to the hospital with altered mental status and concern for possible upper GI bleeding after blood was observed in the NG tube. Upon further evaluation, it was determined that the blood originated from a nasal source due to trauma, not GI bleeding. The NG tube currently shows no blood. His MELD-Na score has worsened, increasing from 20 during last admission 33 currently. His total bilirubin is now markedly elevated compared to prior levels. During the previous admission, his hemoglobin was 6.9, for which she received 2 units PRBC. His current hemoglobin is 10.4 Allergies: Coded Allergies: No Known Allergies (Unverified , 04/15/25) Home Medications Home Medications Active Reported Lactulose 20 Gram Packet Gm PO TID Folic Acid* (Folic Acid) Y Tab 1 Tab PO DAILY 30 Days Pantoprazole Sodium 40 Mg Tablet.dr 1 Tab PO DAILY 30 Days Midodrine Hcl 10 Mg Tablet 1 Tab PO Q4H 30 Days Spironolactone 100 Mg Tablet 1 Tab PO BID 30 Days Potassium Chloride 20 Meq Tab.prt.sr 1 Tab PO DAILY 30 Days Furosemide 80 Mg Tablet 1 Tab PO DAILY Vitamin K (Phytonadione) 100 Mcg Tablet 1 Tab PO DAILY 30 Days Ferrous Sulfate* (Ferrous Sulfate) 325 Mg Tablet 1 Tab PO DAILY Past Medical History Past Medical History Decompensated liver failure, alcoholic cirrhosis, hepatic encephalopathy, BRIAN, portal hypertension, portal hypertensive gastropathy Past Surgical History Surgical History Comment No significant surgeries Past Social History Social History Comment Patient lives with his family at their home. Ambulates independently, consumed alcohol for 25 years, has remained sober for approximately three months. Never smoked, denies using recreational drugs. ROS ROS As stated above in the HPI, otherwise all systems are reviewed and negative. Exam Vitals: Vital Signs Date Time Temp Pulse Resp B/P (MAP) Pulse Ox O2 Delivery O2 Flow Rate FiO2 04/15/25 11:24 97.4 81 18 127/65 (85) 100 Room Air 04/15/25 08:58 0 04/15/25 03:00 28 General: Patient is obtunded, confused, and unable to communicate. Eyes open, NG tube in place, no other acute findings noted HEENT: Conjunctiva yellowish, mucous membrane dry Neck: Supple without masses and tenderness. Resp: Unlabored. Lungs clear to auscultation bilaterally. Heart: Regular Rate and rhythm, normal S1 and S2 without murmur, rub or gallop. Abdomen: Abdomen distended, fluid thrill present, spleen palpable Extremities: No cyanosis,clubbing or edema. Skin: Warm and Dry. Diagnostic Data Last Recorded Lab Results: 04/15/25 03104/15/25 0311 Diagnostic Data: Laboratory Tests Test 04/15/25 03:11 Prothrombin Time 26.0 SECONDS (9.0-12.0) H INR International Normalized Ratio 2.8 INR Activated Partial Thromboplast Time 51 SECONDS (22-32) H Coagulation Comments Additional Plan Assessment and plan A 49-year-old male with alcoholic liver cirrhosis, presenting with altered mental status secondary to hepatic encephalopathy in the setting of acute on chronic liver failure. His MELD score has increased from 26-33, and he continues to have significant hepatic decompensation characterized by hyperbilirubinemia, coagulopathy, ascites, and hyponatremia. 1. Possible GI bleed; ruled out Source identified as nasal trauma, not GI. No melena, hematemesis, or hemoglobin drop No repeat EGD indicated at this time Continue PPI for mucosal protection We will continue to follow 2. Hepatic encephalopathy Likely due to worsening hepatic dysfunction and elevated ammonia Continue lactulose and rifaximin Monitor mental status, ammonia, and stool output 3. Acute on chronic decompensated alcoholic cirrhosis Ongoing hepatic failure with MELD-Na 33 CT and endoscopic findings are consistent with portal hypertension with portal hypertensive gastropathy and mild thrombocytopenia, Continue supportive care, monitor LFTs, INR, sodium, and renal function Avoid hepatotoxic drugs Strict alcohol abstinence 4. Ascites, status post 7 L paracentesis March 29, 2025 CTA abdomen shows cirrhotic liver with portal hypertension, splenomegaly, and large volume ascites Continue salt restriction and diuretics Repeat paracentesis if tense ascites or respiratory compromise. If repeated, sent fluids for cell count/differential to rule out SBP 5. Hyponatremia Chronic, secondary to cirrhosis; fluid and salt restriction Management per primary team 6. Coagulopathy INR 2.8, consistent with cirrhosis; no active bleeding, no correction on less invasive procedure planned The GI team will continue to follow the patient for management of decompensated alcoholic cirrhosis with hepatic encephalopathy and ascites. Recommend continuing current medical management, including lactulose titration, diuretics, salt restriction, and PPI therapy. No indication for repeat EGD at this time as the bleeding source appears nasal. Monitor mental status, ammonia level, renal function, and LFTs closely. Repeat paracentesis maybe consider if ascites reaccumulates or respiratory symptoms worsened. Transplant hepatology evaluation and goal of care discussion are advised once the patient stabilizes. Lenny Conn Internal Medicine Resident, PGY-3 Date of Service: Apr 15, 2025 Billing Provider: JOHN JACKSON MD,LENNY, RES Apr 15, 2025 16:50
[2025-04-15] MEDS: mineral oil 133ml enema RC STA (17:14)
[2025-04-15 18:09] LABS: CREATININE 1.40 MG/DL (0.60-1.10); TOTAL CARBON DIOXIDE 17.6 MMOL/L (24-32); eCRCL 61 ML/MIN; eGFR 54 ML/MIN
[2025-04-15] MEDS: ringers solution, lacted 1,000 ML IV SCH (18:22)
[2025-04-15 18:23] LABS: PHOSPHORUS 2.9 MG/DL (2.3-4.5)
[2025-04-15] MEDS: Lactulose Enema **for rectal use only RC ONE (18:25)
[2025-04-15] MEDS: FENTANYL-0.9 % NACL/PF 100 ML IV SCH (18:25)
[2025-04-15] MEDS: propofol 1000mg/100ml bottle 100 ML IV SCH (18:25)
--- NOTE | 2025-04-15 18:29 | RADIOLOGY REPORT ---
CHEST RADIOGRAPH Indication: post intubation Technique: DI CHEST,SINGLE VIEW Comparison: 04/15/2025 FINDINGS: The endotracheal tube tip projects at the level of the faisal. Recommend retraction by 3 cm. Nasogastric tube projects towards the stomach. The cardiac silhouette is unremarkable. The lungs demonstrate left basilar/ retrocardiac airspace opacity. The pulmonary vasculature is unremarkable. There is no pleural effusion. There is no pneumothorax. IMPRESSION: As above
--- NOTE | 2025-04-15 18:36 | CONSULTATION REPORT - RESIDENT ---
Consult Providers to CC Resident Creating Document: RILEY JUAREZ RES History of Present Illness Primary Medical Doctor: None Reason for Admit\Complaint: Acute decompensated liver cirrhosis with metabolic encephalopathy History of Present Illness This is a 49-year-old male patient with a known case of alcoholic liver cirrhosis, with associated MELD-Na score of 26 and Child Vitale grade C. His last alcoholic drink was three months ago. As per the admitting residents note, the patient had an episode of vomiting followed which he developed acute change in mental status with a worsening confusion due to which the son had brought him into the ER. He was recently admitted in the hospital and discharged on April 03 after removing 4 L through paracentesis, and advised to be compliant with his Lasix, Aldactone and lactulose. However, the patient has been known to be noncompliant with his lactulose. Today, the patient had progressed to obtundation and his ammonia was 183. In view of rapid deterioration, he is transferred to the ICU. Allergies: Coded Allergies: No Known Allergies (Unverified , 04/15/25) Home Medications Home Medications Active Reported Lactulose 20 Gram Packet Gm PO TID Folic Acid* (Folic Acid) Y Tab 1 Tab PO DAILY 30 Days Pantoprazole Sodium 40 Mg Tablet.dr 1 Tab PO DAILY 30 Days Midodrine Hcl 10 Mg Tablet 1 Tab PO Q4H 30 Days Spironolactone 100 Mg Tablet 1 Tab PO BID 30 Days Potassium Chloride 20 Meq Tab.prt.sr 1 Tab PO DAILY 30 Days Furosemide 80 Mg Tablet 1 Tab PO DAILY Vitamin K (Phytonadione) 100 Mcg Tablet 1 Tab PO DAILY 30 Days Ferrous Sulfate* (Ferrous Sulfate) 325 Mg Tablet 1 Tab PO DAILY Past Medical History Past Medical History Alcoholic liver cirrhosis Past Surgical History Surgical History Comment No surgical history Past Social History Social History Comment Heavy alcoholic for 25 years, last drink 2 months ago. Nonsmoker. No other illicit drug abuse Lives at home with his family. Primary Elijah speaking; [id number]. Ambulates independently without assistive devices ROS ROS Unable to be obtained Exam Vitals: Vital Signs Date Time Temp Pulse Resp B/P (MAP) Pulse Ox O2 Delivery O2 Flow Rate FiO2 04/15/25 18:12 127 21 100 50 04/15/25 18:00 98.3 142/89 (106) Mechanical Ventilator 04/15/25 13:00 0.0 General: General: Obtunded, intubated and mechanically ventilated HEENT: Sclerae erythematous bilaterally. Mucus Membranes moist. Resp: Diminished bibasilar breath sounds Heart: Regular Rate and rhythm, normal S1 and S2 without murmur, rub or gallop. Abdomen: Distended. Fluid thrill present. Soft and non tender Extremities: No cyanosis,clubbing or edema. APPRAISER LAND: Obtunded, further cranial nerve examination limited as the patient received medications for rapid intubation Skin: Warm and Dry. No visible rashes Diagnostic Data Last Recorded Lab Results: 04/15/25 0311 04/15/25 1532 Diagnostic Data: Laboratory Tests Test 04/15/25 03:11 Prothrombin Time 26.0 SECONDS (9.0-12.0) H INR International Normalized Ratio 2.8 INR Activated Partial Thromboplast Time 51 SECONDS (22-32) H Coagulation Comments Additional Plan Acute decompensated liver cirrhosis with hepatic encephalopathy: Child Vitale C MELD-Na score 26 Progressively worsening ammonia; 82 to 183 today Risk of airway compromise- intubated for mechanical ventilation. RT eval and treat. Lactulose q.2 hours; 4-5 bowel movements daily and we will later decrease the frequency accordingly Protonix 40 mg b.i.d.. Continue rifaximin 550 mg b.i.d. and Rocephin IV daily Lactic acidosis secondary to liver failure. Hyponatremia, Hyperbilirubinemia and hypoalbuminemia secondary to above Coagulopathic, we will monitor for high-risk bleeding AFP negative. Seizure precautions to be maintained Acute kidney injury: Likely secondary to peripheral vasodilation from liver failure IV albumin q.8 hours If fails to improve, we will consider vasoconstrictive agents such as midodrine Closely monitor input and output Significant hypergammaglobulinemia: Improved slightly Significantly elevated IgG Follow SPEP and M spike Date of Service: Apr 15, 2025 Billing Provider: BILL GARLAND MD, DEEPANJALI, RES Apr 15, 2025 18:36
[2025-04-15] MEDS: K and/or MAG REPLACEMENT MC SCH (19:12)
[2025-04-15 19:29] LABS: ABG BASE EXCESS -5.6 mmol/L (-2.0-3.0); ABG HCO3 17.4 mmol/L (21.0-28.0); ABG OXYGEN SATURATION 98.3 % (94.0-98.0); ABG PCO2 (T) 25.0 mmHg (35.0-48.0); ABG PH (T) 7.457 (7.350-7.450); ABG PO2 (T) 99.3 mmHg (83.0-108.0); ALLEN'S TEST Modified; FCOHb 1.5 % (0.5-1.5); FHHb 1.7 % (0.0-5.0); FIO2 30.0 mmHg/%; FMetHb 0.3 % (0.0-1.5); FO2Hb 96.5 % (94.0-98.0); MODE prvc; PATIENT TEMPERATURE 35.8; PEEP 5 cm H2O; RESPIRATORY RATE 16 b/min; TIDAL VOLUME 400 mL; TOTAL HEMOGLOBIN 10.0 G/dl (13.5-17.5)
[2025-04-15] MEDS: rifaximin 20mg/ml oral suspension 60 ML BOTTLE PO SCH (19:29)
[2025-04-15] MEDS ORDERED: pantoprazole 40MG/NS 100ML BAG 100 ML IV SCH (20:00)
[2025-04-15] MEDS ORDERED: docusate sod 100mg capsule PO SCH (20:00)
[2025-04-15] MEDS: albumin (human) 25% 100 ML IV solution IV SCH (23:05)
[2025-04-16] VITALS (38 sets, daily range): BP systolic 93–133; BP diastolic 50–63; PULSE 83–119; RESP 12–23; O2SAT 95–99
[2025-04-16] MEDS: INSULIN LISPRO 100 UNIT/ML INSULN.PEN MULTI-DOSE SQ SCH (02:00)
[2025-04-16 03:27] LABS: ABG BASE EXCESS -0.2 mmol/L (-2.0-3.0); ABG HCO3 20.3 mmol/L (21.0-28.0); ABG OXYGEN SATURATION 98.8 % (94.0-98.0); ABG PCO2 (T) 21.8 mmHg (35.0-48.0); ABG PH (T) 7.590 (7.350-7.450); ABG PO2 (T) 107.6 mmHg (83.0-108.0); ALLEN'S TEST Modified; FCOHb 1.8 % (0.5-1.5); FHHb 1.2 % (0.0-5.0); FIO2 25.0 mmHg/%; FMetHb 0.3 % (0.0-1.5); FO2Hb 96.7 % (94.0-98.0); MODE prvc; PATIENT TEMPERATURE 37.6; PEEP 5 cm H2O; RESPIRATORY RATE 16 b/min; TIDAL VOLUME 400 mL; TOTAL HEMOGLOBIN 9.3 G/dl (13.5-17.5)
[2025-04-16 05:05] LABS: MEAN PLATELET VOLUME 8.6 FL (7.4-10.4); RED CELL DISTRIBUTION WIDTH 31.0 % (11.5-14.5)
[2025-04-16 05:08] LABS: APTT 56 SECONDS (22-32); INR 2.8 INR
[2025-04-16 05:17] LABS: CREATININE 1.28 MG/DL (0.60-1.10); LDL CHOLESTEROL 11 MG/DL (50-100); TOTAL CARBON DIOXIDE 20.3 MMOL/L (24-32); eCRCL 67 ML/MIN; eGFR 60 ML/MIN
[2025-04-16 05:28] LABS: PHOSPHORUS 3.0 MG/DL (2.3-4.5)
--- NOTE | 2025-04-16 05:45 | RADIOLOGY REPORT ---
CHEST RADIOGRAPH Indication: eval ett placement Technique: Single frontal view of the chest was obtained COMPARISON: DI CHEST,SINGLE VIEW on DOS: 04/15/25, DI CHEST,SINGLE VIEW on DOS: 04/15/25, DI CHEST,SINGLE VIEW on DOS: 02/26/25 FINDINGS: Lines and Tubes: Unchanged. Lungs: Mild diffuse increased prominence of the pulmonary vasculature. No evidence of focal consolidation. Pleura: No effusion. No pneumothorax. Cardiomediastinal contours: Unremarkable Bones: Unremarkable IMPRESSION: 1. Mild diffuse increased prominence of the pulmonary vasculature. 2. Lines and tubes unchanged.
[2025-04-16] MEDS: dexmedetomidin/NS 400mcg/100ml 100 ML IV SCH (07:42)
[2025-04-16] MEDS ORDERED: rocuronium 10mg/ml inj IV ONE (08:00)
[2025-04-16] MEDS ORDERED: pantoprazole 40mg Tablet.DR PO SCH (08:00)
[2025-04-16] MEDS ORDERED: sod chloride 0.9% 10ml flush syringe IV ONE (08:00)
[2025-04-16] MEDS ORDERED: etomidate 2mg/ml inj. ONE (08:00)
[2025-04-16] MEDS ORDERED: potassium Cl 20 mEq SR tablet PO SCH (08:00)
[2025-04-16] MEDS: folic acid 1mg/0.2ml inj IV SCH (09:55)
[2025-04-16] MEDS: MULTIVIT-MIN/FERROUS GLUCONATE 9 MG/15 ML LIQUID PO SCH (11:40)
[2025-04-16] MEDS ORDERED: rifaximin 20mg/ml oral suspension 60 ML BOTTLE PO SCH (13:45)
--- NOTE | 2025-04-16 14:17 | PROGRESS NOTE- Residence ---
Progress Note - Resident Providers to CC Resident Creating Document: RILEY ECHEVARRIA RES ~ Central Line/PICC still needed: Yes Central Line/PICC Necessity: Prolonged IV access req Shook-Non Protocol Shook Indications Met/Not Met: F/C Indications Met Antibiotic Timeout Antibiotic Ordered?: Yes Subjective No significant change today. He had a bowel movement. On Precedex for sedation and continues to be mechanically ventilated on pressure support. Objective Vital Signs Date Time Temp Pulse Resp B/P (MAP) Pulse Ox O2 Delivery O2 Flow Rate FiO2 04/16/25 13:08 13 21 04/16/25 13:00 97.3 89 102/51 (68) 98 Mechanical Ventilator 04/15/25 13:00 0.0 Result Diagram: 04/16/2542104/16/25421 General: Sedated and mechanically ventilated HEENT: Conjunctiva congested, Sclera clear, Mucus Membranes moist. Dried blood in the mouth, no active bleeding Resp: Unlabored. Lungs clear to auscultation bilaterally. Mechanically ventilated on pressure support Heart: Regular Rate and rhythm, normal S1 and S2 without murmur, rub or gallop. Abdomen: Distended, soft. No subcutaneous or skin lesions noted Extremities: No cyanosis,clubbing or edema. PUBLIC RELATIONS WRITER: Obtunded. Currently sedated. No cranial nerve deficits. Pupils equal and reactive to light. Decreased nutrition of the extremities. Normal tone. Reflexes 2+ in upper and lower extremities. Unable to elicit for sensory deficits and gait. Skin: Warm and Dry. Coagulation Studies Laboratory Tests Test 04/16/25 04:22 Prothrombin Time 26.4 SECONDS (9.0-12.0) H INR International Normalized Ratio 2.8 INR Activated Partial Thromboplast Time 56 SECONDS (22-32) H Coagulation Comments Assessment Assessment This is a 49-year-old male patient, a known case of alcoholic liver cirrhosis with a MELD score of 26 and a child Vitale grade C was admitted to the hospital due to altered mental status which had progressively worsened to obtundation requiring transferred to the ICU and mechanical ventilation to protect the airway. He is currently being monitored in the ICU with treatment to improve bowel movements including lactulose [id number] ongoing. Plan Plan Acute decompensated liver cirrhosis with hepatic encephalopathy: Child Vitale C MELD-Na score 26 Mildly improving ammonia Bowel movements occurring today. Expect improvement in mentation Currently on pressure support and requiring low-dose oxygen supplementation at 40/5; as mentation improves, we will consider weaning off of the ventilator. RT eval and treat to be continued Lactulose q.4 hours; 4-5 bowel movements daily and we will later decrease the frequency accordingly Protonix 40 mg b.i.d.. Continue rifaximin 550 mg b.i.d. and Rocephin IV daily Lactic acidosis secondary to liver failure. Hyponatremia, Hyperbilirubinemia and hypoalbuminemia secondary to above Coagulopathic, we will monitor for high-risk bleeding. INR 2.8, not requiring vitamin K at this point AFP negative, HCV and hep B negative Seizure precautions to be maintained Mild hyponatremia: Decreasing fluid rate; we will continue tapering If developing significant hyponatremia; we will discontinue fluids Maintain fluid restriction after acute decompensation recovery Continue monitoring BMP Acute kidney injury: Improving Likely prerenal from splanchnic vasodilation Closely monitor input and output Significant hypergammaglobulinemia: Improved slightly Significantly elevated IgG Follow SPEP and M spike Lines: PIV Code status: Full code Diet: As per nutrition DVT prophylaxis: Reilly Echevarria PGY3, Internal medicine resident Date of Service: Apr 16, 2025 Billing Provider: BILL GARLAND MD, DEEPANJALI, RES Apr 16, 2025 14:17
[2025-04-16] MEDS ORDERED: DEXTROSE 15 GM of carb/4 tabs (each vial/BOTTLE has 4 tablets) NG PRN ×2 (15:20)
[2025-04-16] MEDS ORDERED: mag hydrox/Alum hydrox/simeth 30ml oral suspension NG PRN (15:20)
[2025-04-16] MEDS ORDERED: magnesium hydroxide 30ml (MOM) UD suspension NG PRN (15:21)
[2025-04-16] MEDS ORDERED: potassium Cl 20 mEq SR tablet NG PRN ×2 (15:22→15:23)
[2025-04-16] MEDS ORDERED: acetaminophen 325mg/10.15ml oral unit dose solution NG PRN ×2 (15:24)
[2025-04-16] MEDS ORDERED: POTASSIUM CHLORIDE 20 MEQ/15 ML oral solution NG PRN ×2 (15:25→15:26)
[2025-04-16] MEDS ORDERED: LACT10SO7 PO (17:08)
--- NOTE | 2025-04-16 17:32 | PROGRESS NOTE- Residence ---
Progress Note - Resident Providers to CC Resident Creating Document: LENNY CONN RES ~ Antibiotic Timeout Antibiotic Ordered?: Yes Subjective Patient was seen and examined in CICU with Dr. Farfan. Patient became more obtunded last night, intubated for airway protection. Is currently sedated, intubated, and mechanically ventilated. Objective Vital Signs Date Time Temp Pulse Resp B/P (MAP) Pulse Ox O2 Delivery O2 Flow Rate FiO2 04/16/25 17:06 19 21 04/16/25 17:00 98.4 95 105/59 (74) 99 Mechanical Ventilator 04/15/25 13:00 0.0 General: Obtunded, intubated and mechanically ventilated HEENT: Sclerae erythematous bilaterally. Mucus Membranes moist. Resp: Diminished bibasilar breath sounds Heart: Regular Rate and rhythm, normal S1 and S2 without murmur, rub or gallop. Abdomen: Distended. Fluid thrill present. Soft and non tender Extremities: No cyanosis,clubbing or edema. HAND STONER: Obtunded, further cranial nerve examination limited as the patient received medications for rapid intubation Skin: Warm and Dry. No visible rashes Result Diagram: 04/16/2542104/16/252 Coagulation Studies Laboratory Tests Test 04/16/25 04:22 Prothrombin Time 26.4 SECONDS (9.0-12.0) H INR International Normalized Ratio 2.8 INR Activated Partial Thromboplast Time 56 SECONDS (22-32) H Coagulation Comments Advance Care Planning Advanced Care planning: Add on additional 30 min (60 min) Assessment Assessment A 49-year-old male with alcoholic liver cirrhosis, presenting with altered mental status secondary to hepatic encephalopathy in the setting of acute on chronic liver failure. His MELD score has increased from 26-33, and he continues to have significant hepatic decompensation characterized by hyperbilirubinemia, coagulopathy, ascites, and hyponatremia. Plan Plan 1. Possible GI bleed; ruled out Source identified as nasal trauma, not GI. No melena, hematemesis, or hemoglobin drop No repeat EGD indicated at this time Continue PPI for mucosal protection Management per ICU team, We will continue to follow 2. Hepatic encephalopathy Likely due to worsening hepatic dysfunction and elevated ammonia Continue lactulose and rifaximin Monitor mental status, ammonia, and stool output Management per ICU team, we will continue to follow 3. Acute on chronic decompensated alcoholic cirrhosis Ongoing hepatic failure with MELD-Na 33 CT and endoscopic findings are consistent with portal hypertension with portal hypertensive gastropathy and mild thrombocytopenia, Continue supportive care, monitor LFTs, INR, sodium, and renal function Avoid hepatotoxic drugs Strict alcohol abstinence 4. Ascites, status post 7 L paracentesis March 29, 2025 CTA abdomen shows cirrhotic liver with portal hypertension, splenomegaly, and large volume ascites Continue salt restriction and diuretics Repeat paracentesis if tense ascites or respiratory compromise. If repeated, sent fluids for cell count/differential to rule out SBP 5. Hyponatremia Chronic, secondary to cirrhosis; fluid and salt restriction Management per primary team 6. Coagulopathy INR 2.8, consistent with cirrhosis; no active bleeding, no correction on less invasive procedure planned The GI team will continue to follow the patient for management of decompensated alcoholic cirrhosis with hepatic encephalopathy and ascites. Recommend continuing current medical management, including lactulose titration, diuretics, salt restriction, and PPI therapy. No indication for repeat EGD at this time as the bleeding source appears nasal. Monitor mental status, ammonia level, renal function, and LFTs closely. Repeat paracentesis maybe consider if ascites reaccumulates or respiratory symptoms worsened. Transplant hepatology evaluation and goal of care discussion are advised once the patient stabilizes. Lenny Conn Internal Medicine Resident, PGY-3 Date of Service: Apr 16, 2025 Billing Provider: JOHN JACKSON MD,LENNY, RES Apr 16, 2025 17:32
--- NOTE | 2025-04-16 18:20 | PROGRESS NOTE- Residence ---
Progress Note - Resident Providers to CC Resident Creating Document: ROBIN ROONEY RES ~ Antibiotic Timeout Antibiotic Ordered?: Yes Subjective Patient is more obtunded, not responding to pain. He is sedated and continues on mechanical ventilation. Objective Vital Signs Date Time Temp Pulse Resp B/P (MAP) Pulse Ox O2 Delivery O2 Flow Rate FiO2 04/16/25 17:06 19 21 04/16/25 17:00 98.4 95 105/59 (74) 99 Mechanical Ventilator 04/15/25 13:00 0.0 Result Diagram: 04/16/2542104/16/25421 Sedated and mechanically ventilated, patient is not responding to pain HEENT: Atraumatic, normocephalic, EOMI, anicteric sclera ; congested conjunctiva, moist mucous membranes, dried blood in the mouth Cardiac: Regular rhythm, regular rate with no murmurs all over the precordium. Respiratory: Unlabored, lungs clear to auscultation bilaterally, mechanically ventilated. Gastrointestinal: Abdomen distended, soft Musculoskeletal: No pedal edema, no cyanosis Neurological: Obtunded, sedated, pupils equal and reactive to light, reflexes 2+ in upper and lower extremities Skin: Warm and dry Coagulation Studies Laboratory Tests Test 04/16/25 04:22 Prothrombin Time 26.4 SECONDS (9.0-12.0) H INR International Normalized Ratio 2.8 INR Activated Partial Thromboplast Time 56 SECONDS (22-32) H Coagulation Comments Assessment Assessment A 49-year-old male with alcoholic liver cirrhosis, presenting with altered mental status secondary to hepatic encephalopathy in the setting of acute on chronic liver failure. His MELD score has increased from 26-33, and he continues to have significant hepatic decompensation characterized by hyperbilirubinemia, coagulopathy, ascites, and hyponatremia. Plan Plan Hepatic encephalopathy Decompensated alcoholic liver cirrhosis Child Vitale C MELD-Na score 33 Patient is obtunded, only reacts to pain Last drink was 3 months ago Ammonia is 82, Total bilirubin-13.2, Albumin- 1.4, INR- 2.8, platelet count-135 Abdomen/Pelvis CT shows versus with sequelae of portal hypertension including splenomegaly and large volume ascites 4 L of ascitic fluid removed in previous admission on March 31, recommend repeat paracentesis Patient failed swallow test, hence NG tube was placed and started on lactulose 20 g q.2h to aim for 3-4 bowel movements every day Started on rifaximin Mild bleeding while NG tube placement, gastroenterology, Dr. 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 AFP recently done in March is normal Lactic acid was elevated, NS was started at 75 ml/hr Abdominal tenderness present on palpation, likely SBP - IV ceftriaxone 1 g daily Monitor AMS 04/16/25 Patient is obtunded Ammonia is improving, he had a bowel movement Continue lactulose q.4h with goal of 4-5 bowel movements daily Lactic acidosis secondary to liver failure Monitor mentation Acute kidney injury, possibly prerenal due to splanchnic vasodilation from liver failure Creatinine was elevated 1.3, baseline creatinine is 0.9 Creatinine is trending down Fena 0.4 %, prerenal BRIAN IV albumin q.8h Monitor I&O History of alcohol use Started on alcohol withdrawal protocol ethyl alcohol<10 Urine Tox screen positive for cannabinoids IV thiamine, IV folic acid given conference services coordinator and substance use navigator consulted Mild hyponatremia Management as per ICU team Code status: Full code DVT prophylaxis: SCD Diet/nutrition: As per nutrition Lines: PIV Disposition: Continue management as per ICU team Resident attestation: The patient note has been reviewed and supervised by senior residents PGY-2/ PGY-3. Critical care time 35 minutes. Patient was seen, examined and discussed with attending physician. Robin Rooney MD Internal Medicine resident, PGY-1 Attending attestation: Patient has end-stage alcoholic liver disease. Fulminant liver failure. Multiorgan failure. Hepatic encephalopathy. Cardiorenal syndrome. Very high mortality risk. Family understands the very poor prognosis. Very poor compliance. Overall prognosis of this patient is very very poor. Date of Service: Apr 16, 2025 Billing Provider: BRITTNEY LOCKHART MD Common Visit Codes: 28901-KLYPATET CARE 30-74 MIN ROBIN ROONEY, RES Apr 16, 2025 18:20 BRITTNEY LOCKHART MD Apr 24, 2025 07:44
[2025-04-16] MEDS: rifaximin 20mg/ml oral suspension 60 ML BOTTLE NG SCH (19:55)
--- NOTE | 2025-04-16 21:52 | PROGRESS NOTE ---
Progress Note Dictate Providers to CC ~altered mental status Central Line/PICC still needed: N\A Shook Indications Met/Not Met: F/C Indications Met Antibiotic Ordered?: N/A MRSA Education MRSA Education Provided to pt: N/A Objective Vitals Vital Signs Date Time Temp Pulse Resp B/P (MAP) Pulse Ox O2 Delivery O2 Flow Rate FiO2 04/16/25 21:27 16 21 04/16/25 21:00 99.7 94 107/59 (75) 96 Mechanical Ventilator 04/15/25 13:00 0.0 Lab Results: 04/16/25 0422 04/16/25 0422 Coagulation Studies Laboratory Tests Test 04/16/25 04:22 Prothrombin Time 26.4 SECONDS (9.0-12.0) H INR International Normalized Ratio 2.8 INR Activated Partial Thromboplast Time 56 SECONDS (22-32) H Coagulation Comments Counseling Services Smoking & Tobacco Cessation: N/A Problem\Assessment\Plan Additional Plan Assessment Assessment This is a 49-year-old male patient, a known case of alcoholic liver cirrhosis with a MELD score of 26 and a child Vitale grade C was admitted to the hospital due to altered mental status which had progressively worsened to obtundation requiring transferred to the ICU and mechanical ventilation to protect the airway. He is currently being monitored in the ICU with treatment to improve bowel movements including lactulose [id number] ongoing. Plan Plan Acute decompensated liver cirrhosis with hepatic encephalopathy: Child Vitale C MELD-Na score 26 Mildly improving ammonia Bowel movements occurring today. Expect improvement in mentation Currently on pressure support and requiring low-dose oxygen supplementation at 40/5; as mentation improves, we will consider weaning off of the ventilator. RT eval and treat to be continued Lactulose q.4 hours; 4-5 bowel movements daily and we will later decrease the frequency accordingly Protonix 40 mg b.i.d.. Continue rifaximin 550 mg b.i.d. and Rocephin IV daily Lactic acidosis secondary to liver failure. Hyponatremia, Hyperbilirubinemia and hypoalbuminemia secondary to above Coagulopathic, we will monitor for high-risk bleeding. INR 2.8, not requiring vitamin K at this point AFP negative, HCV and hep B negative Seizure precautions to be maintained Intubated - on cpap PS, omprecedex Acute kidney injury: Improving Likely prerenal from splanchnic vasodilation Closely monitor input and output Significant hypergammaglobulinemia: Improved slightly Significantly elevated IgG Follow SPEP and M spike Patient seen using HIPAA compliant audio visual aid. CC time 35 mins MD IAN Milian SUCHITRA MD Apr 16, 2025 21:51
[2025-04-17] VITALS (32 sets, daily range): BP systolic 88–125; BP diastolic 43–67; PULSE 63–128; RESP 15–25; O2SAT 94–100
[2025-04-17] MEDS ORDERED: fentaNYL/PF 50MCG/1 ML 2ML syringe IV PRN (00:20)
[2025-04-17 03:46] LABS: ABG BASE EXCESS -2.2 mmol/L (-2.0-3.0); ABG HCO3 19.9 mmol/L (21.0-28.0); ABG OXYGEN SATURATION 97.0 % (94.0-98.0); ABG PCO2 (T) 24.4 mmHg (35.0-48.0); ABG PH (T) 7.529 (7.350-7.450); ABG PO2 (T) 82.9 mmHg (83.0-108.0); ALLEN'S TEST Modified; FCOHb 2.4 % (0.5-1.5); FHHb 2.9 % (0.0-5.0); FIO2 21.0 mmHg/%; FMetHb 0.3 % (0.0-1.5); FO2Hb 94.4 % (94.0-98.0); MODE PRVC; PATIENT TEMPERATURE 36.9; PEEP 5 cm H2O; RESPIRATORY RATE 12 b/min; TIDAL VOLUME 400 mL; TOTAL HEMOGLOBIN 8.0 G/dl (13.5-17.5)
--- NOTE | 2025-04-17 05:40 | RADIOLOGY REPORT ---
CHEST RADIOGRAPH Indication: Intubated Technique: Single frontal view of the chest was obtained COMPARISON: DI CHEST,SINGLE VIEW on DOS: 04/16/25, DI CHEST,SINGLE VIEW on DOS: 04/15/25, DI CHEST,SINGLE VIEW on DOS: 04/15/25, DI CHEST,SINGLE VIEW on DOS: 02/26/25 FINDINGS: Lines and Tubes: Unchanged. Lungs: Clear Pleura: No effusion. No pneumothorax. Cardiomediastinal contours: Unremarkable Bones: Unremarkable IMPRESSION: 1. No acute cardiopulmonary disease. 2. Lines and tubes unchanged.
[2025-04-17 07:00] LABS: MEAN PLATELET VOLUME 8.4 FL (7.4-10.4); RED CELL DISTRIBUTION WIDTH 30.2 % (11.5-14.5)
[2025-04-17] MEDS: MULTIVIT-MIN/FERROUS GLUCONATE 9 MG/15 ML LIQUID NG SCH (07:23)
[2025-04-17] MEDS: insulin regular, human U-100 10ml vial - multi-dose SQ SCH (07:26)
[2025-04-17 07:41] LABS: CREATININE 1.09 MG/DL (0.60-1.10); TOTAL CARBON DIOXIDE 21.1 MMOL/L (24-32); eCRCL 81 ML/MIN; eGFR 73 ML/MIN
[2025-04-17 07:45] LABS: PHOSPHORUS 2.5 MG/DL (2.3-4.5)
[2025-04-17 08:17] LABS: EOSINOPHILS % (MANUAL) 1.0 % (0-6); LYMPHOCYTES % (MANUAL) 20.0 % (21-51); MONOCYTES % (MANUAL) 8.0 % (2-12); NEUTROPHILS % (MANUAL) 71.0 % (42-75); PLATELET ESTIMATE DECREASED
[2025-04-17 08:19] LABS: LARGE PLATELETS FEW
[2025-04-17] MEDS: polyvinyl alcohol eye drops 15ML BOTTLE EACHEYE PRN (09:12)
--- NOTE | 2025-04-17 09:22 | PROGRESS NOTE- Residence ---
Progress Note - Resident Providers to CC Resident Creating Document: LENNY CONN RES ~ Antibiotic Timeout Antibiotic Ordered?: Yes Subjective Patient was seen and examined this morning in CICU with Dr. Farfan. He has remained intubated and mechanically ventilated. Wean off trails today. Objective Vital Signs Date Time Temp Pulse Resp B/P (MAP) Pulse Ox O2 Delivery O2 Flow Rate FiO2 04/17/25 08:00 97.5 112 18 113/58 (76) 98 Mechanical Ventilator 21 04/15/25 13:00 0.0 General: Obtunded, intubated and mechanically ventilated HEENT: Sclerae erythematous bilaterally. Mucus Membranes moist. Resp: Diminished bibasilar breath sounds Heart: Regular Rate and rhythm, normal S1 and S2 without murmur, rub or gallop. Abdomen: Distended. Fluid thrill present. Soft and non tender Extremities: No cyanosis,clubbing or edema. ASSISTANT PRESS OPERATOR: Obtunded, further cranial nerve examination limited as the patient received medications for rapid intubation Skin: Warm and Dry. No visible rashes Result Diagram: 04/17/2547 04/17/2547 Coagulation Studies Laboratory Tests Test 04/16/25 04:22 04/17/25 06:47 Prothrombin Time 26.4 SECONDS (9.0-12.0) H INR International Normalized Ratio 2.8 INR Activated Partial Thromboplast Time 56 SECONDS (22-32) H Coagulation Comments Advance Care Planning Advanced Care planning: Add on additional 30 min (1 hour ) Assessment Assessment A 49-year-old male with alcoholic liver cirrhosis, presenting with altered mental status secondary to hepatic encephalopathy in the setting of acute on chronic liver failure. His MELD score has increased from 26-33, and he continues to have significant hepatic decompensation characterized by hyperbilirubinemia, coagulopathy, ascites, and hyponatremia. Plan Plan 1. Possible GI bleed; ruled out Source identified as nasal trauma, not GI. No melena, hematemesis, or hemoglobin drop No repeat EGD indicated at this time Continue PPI for mucosal protection Management per ICU team, We will continue to follow 2. Hepatic encephalopathy Likely due to worsening hepatic dysfunction and elevated ammonia. More obtund; intubated, on mechanical ventilation. Continue lactulose and rifaximin Monitor mental status, ammonia, and stool output Management per ICU team, we will continue to follow 3. Acute on chronic decompensated alcoholic cirrhosis Ongoing hepatic failure with MELD-Na 33 CT and endoscopic findings are consistent with portal hypertension with portal hypertensive gastropathy and mild thrombocytopenia, Continue supportive care, monitor LFTs, INR, sodium, and renal function Avoid hepatotoxic drugs Strict alcohol abstinence 4. Ascites, status post 7 L paracentesis March 29, 2025 CTA abdomen shows cirrhotic liver with portal hypertension, splenomegaly, and large volume ascites Continue salt restriction and diuretics Repeat paracentesis if tense ascites or respiratory compromise. If repeated, sent fluids for cell count/differential to rule out SBP 5. Hyponatremia Chronic, secondary to cirrhosis; fluid and salt restriction Management per primary team 6. Coagulopathy INR 2.8, consistent with cirrhosis; no active bleeding, no correction on less invasive procedure planned Lenny Conn Internal Medicine Resident, PGY-3 Date of Service: Apr 17, 2025 Billing Provider: JOHN JACKSON MD,LENNY, RES Apr 17, 2025 09:22
[2025-04-17] MEDS: midodrine tablet 2.5 MG TABLET PO SCH (10:02)
[2025-04-17 12:47] LABS: MEAN PLATELET VOLUME 8.8 FL (7.4-10.4); RED CELL DISTRIBUTION WIDTH 30.4 % (11.5-14.5)
[2025-04-17] MEDS: lactulose 20gm/30ml cup NG SCH ×2 (13:00→22:00)
[2025-04-17 13:39] LABS: APTT 79 SECONDS (22-32)
[2025-04-17 14:07] LABS: INR 3.6 INR
--- NOTE | 2025-04-17 18:15 | PROGRESS NOTE- Residence ---
Progress Note - Resident Providers to CC Resident Creating Document: RILEY ECHEVARRIA RES ~ Central Line/PICC still needed: No Shook-Non Protocol Shook Indications Met/Not Met: F/C Indications Met Antibiotic Timeout Antibiotic Ordered?: Yes Subjective Patient is comfortable with no acute complaints. He has been more awake today and hence, he was extubated. He is in no acute respiratory distress and is stable. Objective Vital Signs Date Time Temp Pulse Resp B/P (MAP) Pulse Ox O2 Delivery O2 Flow Rate FiO2 04/17/25 17:55 99.7 95 19 104/60 (75) 97 Nasal Cannula 2.0 04/17/25 12:44 21 Result Diagram: 04/17/25 1203 04/17/25 0647 General: Drowsy but wakes up on command HEENT: Conjunctiva congested, Sclera clear, Mucus Membranes moist. Dried blood in the mouth, no active bleeding Resp: Unlabored. Lungs clear to auscultation bilaterally. Diminished left basilar breath sounds Heart: Regular Rate and rhythm, normal S1 and S2 without murmur, rub or gallop. Abdomen: Distended, soft. No subcutaneous or skin lesions noted Extremities: No cyanosis,clubbing or edema. COMPRESSION MOLDING MACHINE OPERATOR: Drowsy but wakes up. No cranial nerve deficits. Pupils equal and reactive to light. Decreased nutrition of the extremities. Normal tone. Reflexes 3+ in upper and lower extremities. Unable to elicit for sensory deficits and gait. Skin: Warm and Dry. Coagulation Studies Laboratory Tests Test 04/17/25 12:03 Prothrombin Time 32.4 SECONDS (9.0-12.0) H INR International Normalized Ratio 3.6 INR Activated Partial Thromboplast Time 79 SECONDS (22-32) *H Coagulation Comments Assessment Assessment A 49-year-old male with alcoholic liver cirrhosis, presenting with altered mental status secondary to hepatic encephalopathy in the setting of acute on chronic liver failure. His MELD score has increased from 26-33, and he continues to have significant hepatic decompensation characterized by hyperbilirubinemia, coagulopathy, ascites, and hyponatremia. Plan Plan Acute decompensated liver cirrhosis: Hepatic encephalopathy; Resolved Child Vitale C MELD-Na score 29 Extubated today Continue lactulose q.8 hours. Aim for 45 bowel movements per day Hypotension secondary to above, started the patient on midodrine 5 mg TID. Protonix 40 mg b.i.d.. Continue rifaximin 550 mg b.i.d. and Rocephin IV daily Coagulopathic, monitor for high-risk bleeding. INR 2.8, not requiring vitamin K at this point Acute kidney injury: Resolved Likely prerenal from splanchnic vasodilation Closely monitor input and output Significant hypergammaglobulinemia: Improved slightly Significantly elevated IgG Follow SPEP and M spike Lines: PIV Code status: Full code Diet: As per nutrition DVT prophylaxis: Reilly Echevarria PGY3, Internal medicine resident Date of Service: Apr 17, 2025 Billing Provider: BILL GARLAND MD,RILEY, RES Apr 17, 2025 18:15
--- NOTE | 2025-04-17 18:35 | PROGRESS NOTE- Residence ---
Progress Note - Resident Providers to CC Resident Creating Document: ROBIN ROONEY RES ~ Antibiotic Timeout Antibiotic Ordered?: Yes Subjective Patient is extubated, he is awake, alert and oriented. His niece and her were at bedside. They stated that the patient has been conversing with them. He has bowel movements. No new overnight complaints reported. Objective Vital Signs Date Time Temp Pulse Resp B/P (MAP) Pulse Ox O2 Delivery O2 Flow Rate FiO2 04/17/25 17:55 99.7 95 19 104/60 (75) 97 Nasal Cannula 2.0 04/17/25 12:44 21 Result Diagram: 04/17/25 1203 04/17/25 0647 Awake , alert, and oriented, drowsy, resting in the bed,, in no acute distress HEENT: Sclera clear ; pink conjunctiva, moist mucous membranes Cardiac: Regular rhythm, regular rate with no murmurs all over the precordium. Respiratory: Diminished left basilar breath sounds, no tachypnea, no wheezing ,rub or rales Gastrointestinal: Abdomen distended, soft, non-tender, normal bowel sounds Musculoskeletal: No pedal edema, no cyanosis Neurological: Awake but drowsy, no cranial nerve deficits, pupils equal and reactive to light, reflexes 3+ in upper and lower extremities. Unable to elicit for sensory deficits and gait. Skin: Warm and dry Coagulation Studies Laboratory Tests Test 04/17/25 12:03 Prothrombin Time 32.4 SECONDS (9.0-12.0) H INR International Normalized Ratio 3.6 INR Activated Partial Thromboplast Time 79 SECONDS (22-32) *H Coagulation Comments Assessment Assessment A 49-year-old male with alcoholic liver cirrhosis, admitted for management of hepatic encephalopathy in the setting of acute on chronic liver failure. Plan Plan Hepatic encephalopathy Decompensated alcoholic liver cirrhosis Child Vitale C MELD-Na score 33 Patient is obtunded, only reacts to pain Last drink was 3 months ago Ammonia is 82, Total bilirubin-13.2, Albumin- 1.4, INR- 2.8, platelet count-135 Abdomen/Pelvis CT shows versus with sequelae of portal hypertension including splenomegaly and large volume ascites 4 L of ascitic fluid removed in previous admission on March 31, recommend repeat paracentesis Patient failed swallow test, hence NG tube was placed and started on lactulose 20 g q.2h to aim for 3-4 bowel movements every day Started on rifaximin Mild bleeding while NG tube placement, gastroenterology, Dr. 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 AFP recently done in March is normal Lactic acid was elevated, NS was started at 75 ml/hr Abdominal tenderness present on palpation, likely SBP - IV ceftriaxone 1 g daily Monitor AMS 04/16/25 Patient is obtunded Ammonia is improving, he had a bowel movement Continue lactulose q.4h with goal of 4-5 bowel movements daily Lactic acidosis secondary to liver failure Monitor mentation 04/17/25 Patient is extubated Awake but drowsy He is having bowel movements Ammonia is improving - 81 Continue lactulose q.8h, rifaximin and IV Rocephin Monitor mentation Acute kidney injury, possibly prerenal due to splanchnic vasodilation from liver failure Creatinine is trending down Fena 0.4 %, prerenal BRIAN Monitor I&O History of alcohol use Alcohol withdrawal protocol ethyl alcohol<10 Urine Tox screen positive for cannabinoids IV thiamine, IV folic acid given counseling services director and substance use navigator consulted Significant hypergammaglobulinemia: Improved slightly Significantly elevated IgG Follow SPEP and M spike Code status: Full code DVT prophylaxis: SCD Diet/nutrition: As per nutrition Lines: PIV Disposition: Continue management as per ICU team Resident attestation: The patient note has been reviewed and supervised by senior residents PGY-2/ PGY-3. Patient was seen, examined and discussed with attending physician. Critical care time 35 minutes. Robin Rooney MD Internal Medicine resident, PGY-1 Date of Service: Apr 17, 2025 Billing Provider: BRITTNEY LOCKHART MD Common Visit Codes: [id number] CARE 30-74 MIN ROBIN ROONEY, RES Apr 17, 2025 18:35 BRITTNEY LOCKHART MD Apr 24, 2025 07:45
[2025-04-17] MEDS: fentaNYL/PF 50MCG/1 ML 2ML syringe IV PRN (19:37)
[2025-04-18] VITALS (19 sets, daily range): BP systolic 108–154; BP diastolic 55–77; PULSE 81–104; RESP 13–22; TEMP 97.6–98.2; O2SAT 92–100
[2025-04-18 02:34] LABS: MEAN PLATELET VOLUME 8.6 FL (7.4-10.4); RED CELL DISTRIBUTION WIDTH 31.0 % (11.5-14.5)
[2025-04-18 02:48] LABS: CREATININE 0.89 MG/DL (0.60-1.10); TOTAL CARBON DIOXIDE 23.6 MMOL/L (24-32); eCRCL 98 ML/MIN; eGFR > 90 ML/MIN
[2025-04-18 02:51] LABS: PHOSPHORUS 2.0 MG/DL (2.3-4.5)
[2025-04-18 03:05] LABS: INR 3.8 INR
[2025-04-18 03:11] LABS: APTT 79 SECONDS (22-32)
[2025-04-18] MEDS: potassium Cl 40MEQ/1/2NS 520ml 520 ML IV ONE (04:37)
[2025-04-18] MEDS: potassium Cl 40MEQ/1/2NS 520ml 520 ML IV PRN (04:37)
[2025-04-18] MEDS: HYDROmorphone inj. 0.5 MG/0.5 ML DISP.SYRIN IV PRN (05:07)
--- NOTE | 2025-04-18 10:37 | PROGRESS NOTE- Residence ---
Progress Note - Resident Providers to CC Resident Creating Document: LENNY CONN RES ~ Antibiotic Timeout Antibiotic Ordered?: Yes Subjective Patient was seen and examined at CICU. Hepatic encephalopathy resolved. Ammonia level normalized; 16 today. On lactulose. He was extubated yesterday and is now breathing comfortably on room air with good perfusion. His mother is present at bedside. He reports some abdominal pain; exam notable for abdominal distention with fluid thrill. He has been undergoing regular paracentesis, and Dr. Rodgers is planning another paracentesis today. The patient has been downgraded to the floor. Hemoglobin has decreased from 8.9 yesterday to 7.1 today, HCT 21.9, platelet 81. INR 3.8, APTT 79. Rectal tube in place. No melena, nausea, or vomiting ; only abdominal discomfort reported Objective Vital Signs Date Time Temp Pulse Resp B/P (MAP) Pulse Ox O2 Delivery O2 Flow Rate FiO2 04/18/25 09:00 98.2 96 20 128/76 (93) 95 Room Air 04/17/25 23:00 2.0 04/17/25 12:44 21 General: Awake, alert, able to communicate, however, appears lethargic. Yellow discoloration of conjunctiva and face. Cachectic HEENT: Yellow discoloration of conjunctiva Resp: Diminished bibasilar breath sounds Heart: Regular Rate and rhythm, normal S1 and S2 without murmur, rub or gallop. Abdomen: Distended. Fluid thrill present. Soft and non tender Extremities: No cyanosis,clubbing or edema. Skin: Warm and Dry. No visible rashes Result Diagram: 04/18/254 04/18/25 0224 Coagulation Studies Laboratory Tests Test 04/18/25 02:24 Prothrombin Time 34.1 SECONDS (9.0-12.0) H INR International Normalized Ratio 3.8 INR Activated Partial Thromboplast Time 79 SECONDS (22-32) *H Coagulation Comments Advance Care Planning Advanced Care plannin - 30 Minutes Assessment Assessment A 49-year-old male with alcoholic liver cirrhosis, admitted for management of hepatic encephalopathy in the setting of acute on chronic liver failure. Plan Plan 1. Possible GI bleed; ruled out Source identified as nasal trauma, not GI. No melena, hematemesis, or hemoglobin drop No repeat EGD indicated at this time Continue PPI for mucosal protection Management per ICU team, We will continue to follow 2. Hepatic encephalopathy, resolved Likely due to worsening hepatic dysfunction and elevated ammonia. More obtund; intubated, on mechanical ventilation. Continue lactulose and rifaximin Monitor mental status, ammonia, and stool output Management per ICU team, we will continue to follow 3. Acute on chronic decompensated alcoholic cirrhosis Ongoing hepatic failure with MELD-Na 33 CT and endoscopic findings are consistent with portal hypertension with portal hypertensive gastropathy and mild thrombocytopenia, Continue supportive care, monitor LFTs, INR, sodium, and renal function Avoid hepatotoxic drugs Strict alcohol abstinence 4. Ascites, status post 7 L paracentesis March 29, 2025 CTA abdomen shows cirrhotic liver with portal hypertension, splenomegaly, and large volume ascites Continue salt restriction and diuretics Repeat paracentesis if tense ascites or respiratory compromise. If repeated, sent fluids for cell count/differential to rule out SBP Paracentesis planned by post acute care nurse practitioner 5. Hyponatremia resolved Chronic, secondary to cirrhosis; fluid and salt restriction Management per primary team 6. Coagulopathy INR 3.8, consistent with cirrhosis; no active bleeding, no correction on less invasive procedure planned Lenny Conn Internal Medicine Resident, PGY-3 Date of Service: Apr 18, 2025 Billing Provider: JOHN JACKSON MD,LENNY, RES Apr 18, 2025 10:37
--- NOTE | 2025-04-18 10:54 | PROCEDURE NOTE CC ---
Procedure Note CC Providers to CC ~ Procedure Name: Paracentesis Description: Indication: Ascites Consent: Family Time-out: Done Technique: US guided Anesthesia: Local Fluid: 4100ml yellow fluid Complication: None EBL: 0ml Sepsis Screening Reassessment Date: Apr 18, 2025 BILL GARLAND MD Apr 18, 2025 10:54
[2025-04-18] MEDS ORDERED: POTASSIUM CHLORIDE 20 MEQ/15 ML oral solution NG PRN ×2 (11:10)
[2025-04-18] MEDS ORDERED: potassium Cl 40MEQ/1/2NS 520ml 520 ML IV PRN (11:10)
--- NOTE | 2025-04-18 11:43 | RADIOLOGY REPORT ---
PROCEDURE: ULTRASOUND GUIDED PARACENTESIS HISTORY: 49 Male requiring paracentesis. TECHNIQUE: The risks and benefits of the procedure including but not limited to bleeding, infection and injury to abdominal organs were explained to the patient and written informed consent was obtained. Optimal site for puncture was determined using ultrasound and the area sterilized and draped. Using a 5 Sami Yueh catheter, paracentesis was performed in the left lower abdomen. Approximately 4.1 liters of straw- colored fluid was removed. The patient tolerated the procedure well. There were no immediate complications. IMPRESSION: Ultrasound-guided paracentesis with no immediate complications. Procedure performed by Dr. Rodgers
[2025-04-18] MEDS ORDERED: iohexol 300mg/ml 100ml inj. ONE (17:15)
--- NOTE | 2025-04-18 18:04 | PROGRESS NOTE- Residence ---
Progress Note - Resident Providers to CC Resident Creating Document: ANDRÉS ECHEVARRIA RES ~ Central Line/PICC still needed: No Shook-Non Protocol Shook Indications Met/Not Met: F/C Indications Met Antibiotic Timeout Antibiotic Ordered?: Yes Objective Vital Signs Date Time Temp Pulse Resp B/P (MAP) Pulse Ox O2 Delivery O2 Flow Rate FiO2 04/18/25 11:45 96 04/18/25 11:00 98.6 17 121/64 (83) 96 Room Air 04/17/25 23:00 2.0 04/17/25 12:44 21 Result Diagram: 04/18/2522304/18/25223 General: Drowsy but wakes up on command HEENT: Conjunctiva congested, Sclera clear, Mucus Membranes moist. Dried blood in the mouth, no active bleeding Resp: Unlabored. Lungs clear to auscultation bilaterally. Diminished left basilar breath sounds Heart: Regular Rate and rhythm, normal S1 and S2 without murmur, rub or gallop. Abdomen: Distended and tense. No subcutaneous or skin lesions noted Extremities: No cyanosis,clubbing or edema. ICU STAFF NURSE: Drowsy but wakes up. No cranial nerve deficits. Pupils equal and reactive to light. Decreased nutrition of the extremities. Normal tone. Reflexes 3+ in upper and lower extremities. Unable to elicit for sensory deficits and gait. Skin: Warm and Dry. Coagulation Studies Laboratory Tests Test 04/18/25 02:24 Prothrombin Time 34.1 SECONDS (9.0-12.0) H INR International Normalized Ratio 3.8 INR Activated Partial Thromboplast Time 79 SECONDS (22-32) *H Coagulation Comments Assessment Assessment A 49-year-old male with alcoholic liver cirrhosis, admitted for management of hepatic encephalopathy in the setting of acute on chronic liver failure. He was brought onto the ICU due to obtundation from hyperammonemia induced hepatic encephalopathy. He was intubated and monitored in the ICU. Rectal tube is currently in the patient had significant stool output and started recovered after lactulose treatment. Hence, after stabilization he was extubated and transferred back to the floor. Plan Plan Acute decompensated liver cirrhosis: Hepatic encephalopathy; Resolved Child Vitale C Awake, alert, oriented x4. Decreased lactulose dosing Paracentesis performed today, drained 4 L. Usual paracentesis schedule of the patient is every two weeks removing up to 4 L Maintain at least 4-5 bowel movements per day. Continue midodrine 5 mg t.i.d. Protonix 40 mg b.i.d.. Continue rifaximin 550 mg b.i.d. and Rocephin IV daily At request of family, ordered liver protocol CT abdomen. Follow results and records to be requested by family at discharge for transferred to [facility] Hepatology team. Addressed renal function prior to the contrast; closely monitor BMP Coagulopathic, monitor for high-risk bleeding. INR 2.8, not requiring vitamin K at this point Acute kidney injury: Resolved Likely prerenal from splanchnic vasodilation Closely monitor input and output Significant hypergammaglobulinemia: POA at last admission Improved slightly Significantly elevated IgG M spike not observed Lines: PIV Code status: Full code Diet: As per nutrition DVT prophylaxis: SCDs Disposition: Patient was extubated yesterday in the morning and had remained stable for over 24 hours in the ICU after which he was transferred to the floor. Prognosis overall is poor. Andrés Echevarria PGY3, Internal medicine resident Date of Service: Apr 18, 2025 Billing Provider: BILL GARLAND MD,ANDRÉS, RES Apr 18, 2025 18:04
--- NOTE | 2025-04-18 18:16 | RADIOLOGY REPORT ---
CLINICAL HISTORY: Liver protocol TECHNIQUE: CT of the abdomen was performed without intravenous contrast. CT of the abdomen was performed with 100 ml of omnipaque 300 administered intravenously. Noncontrast, arterial, venous, and delayed phase imaging performed. This exam was performed according to our departmental dose optimization program. Up-to-date CT equipment and radiation dose reduction techniques are utilized as appropriate. WID: COMPARISON: CT CT ABDOMEN PELVIS W/ IV CONTRAST on DOS: 04/15/25, FINDINGS: Lower Thorax: Mild cardiomegaly. Small left pleural effusion. Mild dependent atelectasis in the lungs. Small symmetric bilateral gynecomastia. Liver and Biliary system: Hepatomegaly with the right lobe of the liver measuring 19 cm craniocaudal. Nodular contour of the liver. There is geographic steatosis predominantly in the left lobe of the liver. No definite arterially enhancing lesion is seen. Small hypodense lesion in segment 6 of the liver measures 8.5 mm on series 5, image 54. Major portal veins are patent. Gallbladder is normal caliber. Portosystemic collateral vessels are seen. No biliary ductal dilatation. Spleen: Splenomegaly. Adrenal Glands and Kidneys: Unremarkable adrenal glands. No hydronephrosis or nephrolithiasis. Tiny hypodensities in the kidneys are too small to characterize. Pancreas and Retroperitoneum: Unremarkable. Aorta and Major Vessels: Abdominal aorta is patent and normal caliber and common iliac vessels are patent and normal caliber with mild mixed atherosclerotic plaque. Bowel, Mesentery and Peritoneal space: Normal caliber small and large bowel. Mild wall thickening of the ascending colon. There is mesenteric venous congestion and mild ascites. Mild wall thickening of the stomach and the duodenum as well as Scattered small bowel loops. Enteric tube terminates in the 1st portion of the duodenum. No free air or fluid collection. Abdominal wall and Osseous Structures: Minor lower thoracic spondylosis. No destructive osseous lesion. There is body wall edema. IMPRESSION: 1. Cirrhosis and portal hypertension with splenomegaly, portosystemic collateral vessels, and ascites. 2. Mild cardiomegaly, small left pleural effusion and body wall edema. This could reflect a component of CHF and/or volume overload. 3. Small subcentimeter hypodense lesion in segment 6 of the liver. No hyperenhancing liver lesion. LI-RADS 3. Attention on follow-up imaging recommended. 4. Heterogeneous geographic hepatic steatosis predominately in the left lobe of the liver. 5. Mild wall thickening of the stomach and large bowel, most pronounced in the ascending colon which could be infectious or inflammatory gastroenteritis and colitis or related to portal hypertension.
[2025-04-18] MEDS: K and/or MAG REPLACEMENT MC SCH (19:00)
--- NOTE | 2025-04-18 19:39 | PROGRESS NOTE- Residence ---
Progress Note - Resident Providers to CC Resident Creating Document: ROBIN ROONEY RES ~ Antibiotic Timeout Antibiotic Ordered?: Yes Subjective Patient is awake, alert and oriented. He states that he has abdominal pain. He has been having bowel movements. He has a rectal tube in place. No new complaints reported. Objective Vital Signs Date Time Temp Pulse Resp B/P (MAP) Pulse Ox O2 Delivery O2 Flow Rate FiO2 04/18/25 15:00 97.6 95 13 143/64 (90) 98 Room Air 04/17/25 23:00 2.0 04/17/25 12:44 21 Result Diagram: 04/18/2522304/18/25223 Awake, alert, and oriented, drowsy, resting in the bed,, in no acute distress HEENT: Icteric sclera ; pink conjunctiva, moist mucous membranes Cardiac: Regular rhythm, regular rate with no murmurs all over the precordium. Respiratory: Diminished left basilar breath sounds, no tachypnea, no wheezing ,rub or rales Gastrointestinal: Abdomen distended, soft, non-tender, normal bowel sounds Musculoskeletal: No pedal edema, no cyanosis Neurological: Awake but drowsy, no cranial nerve deficits, pupils equal and reactive to light, reflexes 3+ in upper and lower extremities. Unable to elicit for sensory deficits and gait. Skin: Warm and dry Coagulation Studies Laboratory Tests Test 04/18/25 02:24 Prothrombin Time 34.1 SECONDS (9.0-12.0) H INR International Normalized Ratio 3.8 INR Activated Partial Thromboplast Time 79 SECONDS (22-32) *H Coagulation Comments Assessment Assessment A 49-year-old male with alcoholic liver cirrhosis, admitted for management of hepatic encephalopathy in the setting of acute on chronic liver failure. Plan Plan Hepatic encephalopathy Decompensated alcoholic liver cirrhosis Child Vitale C MELD-Na score 33 Patient is obtunded, only reacts to pain Last drink was 3 months ago Ammonia is 82, Total bilirubin-13.2, Albumin- 1.4, INR- 2.8, platelet count-135 Abdomen/Pelvis CT shows versus with sequelae of portal hypertension including splenomegaly and large volume ascites 4 L of ascitic fluid removed in previous admission on March 31, recommend repeat paracentesis Patient failed swallow test, hence NG tube was placed and started on lactulose 20 g q.2h to aim for 3-4 bowel movements every day Started on rifaximin Mild bleeding while NG tube placement, gastroenterology, Dr. 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 AFP recently done in March is normal Lactic acid was elevated, NS was started at 75 ml/hr Abdominal tenderness present on palpation, likely SBP - IV ceftriaxone 1 g daily Monitor AMS 04/16/25 Patient is obtunded Ammonia is improving, he had a bowel movement Continue lactulose q.4h with goal of 4-5 bowel movements daily Lactic acidosis secondary to liver failure Monitor mentation 04/17/25 Patient is extubated Awake but drowsy He is having bowel movements Ammonia is improving - 81 Continue lactulose q.8h, rifaximin and IV Rocephin Monitor mentation 04/18/25 Awake, alert and oriented Patient is having bowel movements, rectal tube in place Ammonia is normal-16 Paracentesis will be performed today At request of family, abdomen CT was done which shows cirrhosis and portal hypertension with splenomegaly, portosystemic collateral vessels and ascites. Mild cardiomegaly, small left pleural effusion and body wall edema which could reflect a component of CHF and/or volume overload Small subcentimeter hypodense lesion in segment 6 of the liver. Heterogeneous geographic hepatic steatosis predominantly in the left lobe of the liver. Mild wall thickening of the stomach and large bowel most pronounced in the ascending colon which could be infectious or inflammatory gastroenteritis and colitis or related to portal hypertension Follow records requested by family at discharge for transferred to [facility] Hepatology team. INR is 3.8, APTT is high - 79, monitor for high-risk bleeding, not requiring vitamin K at this point Continue midodrine, lactulose, rifaximin, IV Rocephin and Protonix Monitor mentation Acute kidney injury, possibly prerenal due to splanchnic vasodilation from liver failure Creatinine is trending down Fena 0.4 %, prerenal BRIAN Monitor I&O History of alcohol use Alcohol withdrawal protocol ethyl alcohol<10 Urine Tox screen positive for cannabinoids IV thiamine, IV folic acid given registered nurse surgical services and substance use navigator consulted Significant hypergammaglobulinemia: Improved slightly Significantly elevated IgG Follow SPEP and M spike Code status: Full code DVT prophylaxis: SCD GI prophylaxis: Protonix Pain management: Dilaudid p.r.n. Diet/nutrition: As per nutrition Prognosis: Guarded Disposition: Continue medical management, PT eval and DC plan Resident attestation: The patient note has been reviewed and supervised by senior residents PGY-2/ PGY-3. Critical care time 35 minutes. Patient was seen, examined and discussed with attending physician. Robin Rooney MD Internal Medicine resident, PGY-1 Date of Service: Apr 18, 2025 Billing Provider: BRITTNEY LOCKHART MD Common Visit Codes: [id number] CARE 30-74 MIN ROBIN ROONEY, RES Apr 18, 2025 19:39 BRITTNEY LOCKHART MD Apr 24, 2025 07:46
[2025-04-19] VITALS (7 sets, daily range): BP systolic 121–149; BP diastolic 69–83; PULSE 113–132; RESP 14–19; TEMP 98.1–100.8; O2SAT 97–100
[2025-04-19 07:00] LABS: MEAN PLATELET VOLUME 8.5 FL (7.4-10.4); RED CELL DISTRIBUTION WIDTH 30.0 % (11.5-14.5)
[2025-04-19 07:05] LABS: APTT 65 SECONDS (22-32); INR 3.8 INR
[2025-04-19 07:16] LABS: CREATININE 0.75 MG/DL (0.60-1.10); TOTAL CARBON DIOXIDE 22.7 MMOL/L (24-32); eCRCL 117 ML/MIN; eGFR > 90 ML/MIN
[2025-04-19 07:19] LABS: PHOSPHORUS 2.4 MG/DL (2.3-4.5)
[2025-04-19 08:48] LABS: PLATELET ESTIMATE DECREASED
[2025-04-19 08:51] LABS: ELLIPTOCYTES 1+
--- NOTE | 2025-04-19 13:18 | PROGRESS NOTE- Residence ---
Progress Note - Resident Providers to CC Resident Creating Document: LEAH SINGH RES ~ Antibiotic Timeout Antibiotic Ordered?: Yes Subjective Pt is hafsa speaker who was seen at the bedside this morning in the presence of his mom and brother. Dr. Graves had an extensive conversation with the family, patient along with his mother and brother beside. Explained regarding the poor prognosis and the goals of care. Patient is legally and lives separately from his . He claims of changing his power of assistant prosecuting attorney to his mother but brother would be the one. Also she was given resources regarding the same. Patient understands that he has poor prognosis and also wanted some time to think about his code status. pt and family are reporting that reluctant to believe EtOH induced advanced decompensated liver failure since the patient did not come soon alcohol over last three months. Objective Vital Signs Date Time Temp Pulse Resp B/P (MAP) Pulse Ox O2 Delivery O2 Flow Rate FiO2 04/19/25 08:44 18 04/19/25 06:30 124 04/19/25 02:00 99.1 149/83 (105) 97 Room Air 04/17/25 23:00 2.0 04/17/25 12:44 21 Result Diagram: 04/19/25 0539 04/19/25 0539 Awake, alert, and oriented, drowsy, resting in the bed,, in no acute distress HEENT: Icteric sclera ; pink conjunctiva, moist mucous membranes Cardiac: Regular rhythm, regular rate with no murmurs all over the precordium. Respiratory: Diminished left basilar breath sounds, no tachypnea, no wheezing ,rub or rales Gastrointestinal: Abdomen distended, soft, non-tender, normal bowel sounds Musculoskeletal: No pedal edema, no cyanosis Neurological: no cranial nerve deficits, pupils equal and reactive to light, reflexes 3+ in upper and lower extremities. Unable to elicit for sensory deficits and gait. Skin: Warm and dry Coagulation Studies Laboratory Tests Test 04/19/25 05:39 Prothrombin Time 34.0 SECONDS (9.0-12.0) H INR International Normalized Ratio 3.8 INR Activated Partial Thromboplast Time 65 SECONDS (22-32) H Coagulation Comments Advance Care Planning Advanced Care plannin - 30 Minutes Assessment Assessment A 49-year-old male with alcoholic liver cirrhosis, admitted for management of hepatic encephalopathy in the setting of acute on chronic liver failure. Plan Plan # Hepatic encephalopathy # Decompensated alcoholic liver cirrhosis, Child Vitale C, MELD-Na score 33 Patient is obtunded, only reacts to pain on admission Last drink was 3 months ago Ammonia is 82, Total bilirubin-13.2, Albumin- 1.4, INR- 2.8, platelet count-135 Abdomen/Pelvis CT shows versus with sequelae of portal hypertension including splenomegaly and large volume ascites 4 L of ascitic fluid removed in previous admission on March 31, recommend repeat paracentesis Patient failed swallow test, hence NG tube was placed and started on lactulose 20 g q.2h to aim for 3-4 bowel movements every day Started on rifaximin Mild bleeding while NG tube placement, gastroenterology, Dr. 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 AFP recently done in March is normal Lactic acid was elevated, NS was started at 75 ml/hr Abdominal tenderness present on palpation, likely SBP - IV ceftriaxone 1 g daily Monitor AMS 04/16/25 Patient is obtunded Ammonia is improving, he had a bowel movement Continue lactulose q.4h with goal of 4-5 bowel movements daily Lactic acidosis secondary to liver failure Monitor mentation 04/17/25 Patient is extubated Awake but drowsy He is having bowel movements Ammonia is improving - 81 Continue lactulose q.8h, rifaximin and IV Rocephin Monitor mentation 04/18/25 Awake, alert and oriented Patient is having bowel movements, rectal tube in place Ammonia is normal-16 Paracentesis will be performed today At request of family, abdomen CT was done which shows cirrhosis and portal hypertension with splenomegaly, portosystemic collateral vessels and ascites. Mild cardiomegaly, small left pleural effusion and body wall edema which could reflect a component of CHF and/or volume overload Small subcentimeter hypodense lesion in segment 6 of the liver. Heterogeneous geographic hepatic steatosis predominantly in the left lobe of the liver. Mild wall thickening of the stomach and large bowel most pronounced in the ascending colon which could be infectious or inflammatory gastroenteritis and colitis or related to portal hypertension Follow records requested by family at discharge for transferred to [facility] Hepatology team. INR is 3.8, APTT is high - 79, monitor for high-risk bleeding, not requiring vitamin K at this point Continue midodrine, lactulose, rifaximin, IV Rocephin and Protonix Monitor mentation 04/19/25: Pt was alert and communicable in [facility] in the presence of his mom and brother at the bedside -the poor prognosis, possible options for further treatment plan, including hospice and palliative care were provided by Dr Graves to pt and his brother and mother. -continue current management # Acute kidney injury, possibly prerenal due to splanchnic vasodilation from liver failure -Creatinine is trending down -Fena 0.4 %, prerenal BRIAN -Monitor I&O # History of alcohol use disorder -Alcohol withdrawal protocol -ethyl alcohol<10 -Urine Tox screen positive for cannabinoids -IV thiamine, IV folic acid given -surgical services tech and substance use navigator consulted # Significant hypergammaglobulinemia -Improved slightly -Significantly elevated IgG -Follow SPEP and M spike Code status: Full code DVT prophylaxis: SCD GI prophylaxis: Protonix Pain management: Dilaudid p.r.n. Diet/nutrition: As per nutrition Prognosis: Guarded Disposition: Continue medical management, PT eval and DC plan Resident MD attestation: Patient was seen, examined and discussed with attending MD, Dr. Graves Critical care time 35 minutes. LEAH SINGH MD Internal Medicine Resident, PGY3 [facility] Date of Service: Apr 19, 2025 Billing Provider: BRITTNEY GRAVES MD Common Visit Codes: [id number] CARE 30-74 MIN LEAH SINGH, RES Apr 19, 2025 13:18 BRITTNEY GRAVES MD Apr 24, 2025 07:47
[2025-04-20] VITALS (13 sets, daily range): BP systolic 114–140; BP diastolic 59–87; PULSE 113–122; RESP 14–20; TEMP 97.3–98.6; O2SAT 97–100
[2025-04-20 06:04] LABS: MEAN PLATELET VOLUME 8.3 FL (7.4-10.4); RED CELL DISTRIBUTION WIDTH 30.9 % (11.5-14.5)
[2025-04-20 06:11] LABS: APTT 59 SECONDS (22-32); INR 3.5 INR
[2025-04-20 06:20] LABS: CREATININE 0.90 MG/DL (0.60-1.10); TOTAL CARBON DIOXIDE 23.0 MMOL/L (24-32); eCRCL 97 ML/MIN; eGFR 90 ML/MIN
[2025-04-20 06:22] LABS: PHOSPHORUS 2.4 MG/DL (2.3-4.5)
--- NOTE | 2025-04-20 11:11 | PROGRESS NOTE- Residence ---
Progress Note - Resident Providers to CC Resident Creating Document: ROBIN ROONEY RES ~ Antibiotic Timeout Antibiotic Ordered?: Yes Subjective Patient was seen and examined bedside. His mentation is good, he is conversing normally with his family. He is having bowel movements. He states that his abdominal pain is better and complains of right thigh pain since last night. He is getting tube feeding through NG, he denies nausea, vomiting. Objective Vital Signs Date Time Temp Pulse Resp B/P (MAP) Pulse Ox O2 Delivery O2 Flow Rate FiO2 04/20/25 09:13 18 04/20/25 06:30 127 04/20/25 02:00 97.4 114/59 (77) 97 Room Air 04/19/25 20:00 28 04/17/25 23:00 2.0 Result Diagram: 04/20/2518 04/20/25517 Awake, alert, and oriented, resting in the bed,, in no acute distress HEENT: Icteric sclera ; pink conjunctiva, moist mucous membranes Cardiac: Regular rhythm, regular rate with no murmurs all over the precordium. Respiratory: Equal breath sounds bilaterally, no tachypnea, no wheezing ,rub or rales. Gastrointestinal: Abdomen distended, soft, non-tender, normal bowel sounds Musculoskeletal: No pedal edema, no cyanosis Neurological: no cranial nerve deficits, pupils equal and reactive to light, reflexes 3+ in upper and lower extremities. Unable to elicit for sensory deficits and gait. Skin: Warm and dry Coagulation Studies Laboratory Tests Test 04/20/25 05:18 Prothrombin Time 32.1 SECONDS (9.0-12.0) H INR International Normalized Ratio 3.5 INR Activated Partial Thromboplast Time 59 SECONDS (22-32) H Coagulation Comments Assessment Assessment A 49-year-old male with alcoholic liver cirrhosis, admitted for management of hepatic encephalopathy in the setting of acute on chronic liver failure. Plan Plan # Hepatic encephalopathy # Decompensated alcoholic liver cirrhosis, Child Vitale C, MELD-Na score 33 Patient is obtunded, only reacts to pain on admission Last drink was 3 months ago Ammonia is 82, Total bilirubin-13.2, Albumin- 1.4, INR- 2.8, platelet count-135 Abdomen/Pelvis CT shows versus with sequelae of portal hypertension including splenomegaly and large volume ascites 4 L of ascitic fluid removed in previous admission on March 31, recommend repeat paracentesis Patient failed swallow test, hence NG tube was placed and started on lactulose 20 g q.2h to aim for 3-4 bowel movements every day Started on rifaximin Mild bleeding while NG tube placement, gastroenterology, Dr. 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 AFP recently done in March is normal Lactic acid was elevated, NS was started at 75 ml/hr Abdominal tenderness present on palpation, likely SBP - IV ceftriaxone 1 g daily Monitor AMS 04/16/25 Patient is obtunded Ammonia is improving, he had a bowel movement Continue lactulose q.4h with goal of 4-5 bowel movements daily Lactic acidosis secondary to liver failure Monitor mentation 04/17/25 Patient is extubated Awake but drowsy He is having bowel movements Ammonia is improving - 81 Continue lactulose q.8h, rifaximin and IV Rocephin Monitor mentation 04/18/25 Awake, alert and oriented Patient is having bowel movements, rectal tube in place Ammonia is normal-16 Paracentesis will be performed today At request of family, abdomen CT was done which shows cirrhosis and portal hypertension with splenomegaly, portosystemic collateral vessels and ascites. Mild cardiomegaly, small left pleural effusion and body wall edema which could reflect a component of CHF and/or volume overload Small subcentimeter hypodense lesion in segment 6 of the liver. Heterogeneous geographic hepatic steatosis predominantly in the left lobe of the liver. Mild wall thickening of the stomach and large bowel most pronounced in the ascending colon which could be infectious or inflammatory gastroenteritis and colitis or related to portal hypertension Follow records requested by family at discharge for transferred to [facility] Hepatology team. INR is 3.8, APTT is high - 79, monitor for high-risk bleeding, not requiring vitamin K at this point Continue midodrine, lactulose, rifaximin, IV Rocephin and Protonix Monitor mentation 04/19/25: Pt was alert and communicable in [facility] in the presence of his mom and brother at the bedside -the poor prognosis, possible options for further treatment plan, including hospice and palliative care were provided by Dr Graves to pt and his brother and mother. -continue current management 04/20/25 Patient is able to converse with family at bedside, mentation is good Ammonia is normal-36, he is having bowel movements INR-3.5, APTT-59, monitor bleeding Hemoglobin was 6.5, 1 unit PRBC transfused, hemoglobin came up to 7.9 He has no hematemesis Monitor H&H daily, transfused PRBC if Hb < 7, patient will need EGD if Hb significantly drops Patient complained of right thigh pain, no signs of DVT, follow up CPK # Acute kidney injury, possibly prerenal due to splanchnic vasodilation from liver failure -Creatinine is trending down -Fena 0.4 %, prerenal BRIAN -Monitor I&O # History of alcohol use disorder -Alcohol withdrawal protocol -ethyl alcohol<10 -Urine Tox screen positive for cannabinoids -IV thiamine, IV folic acid given -vp marketing services and skin and substance use navigator consulted # Significant hypergammaglobulinemia -Improved slightly -Significantly elevated IgG -Follow SPEP and M spike Code status: Full code DVT prophylaxis: SCD GI prophylaxis: Protonix Pain management: Dilaudid p.r.n. Diet/nutrition: As per nutrition Prognosis: Guarded Disposition: Continue medical management, follow up with family regarding code status, PT eval and DC plan Resident attestation: The patient note has been reviewed and supervised by senior residents PGY-2/ PGY-3. Critical care time 35 minutes. Patient was seen, examined and discussed with attending physician. Robin Rooney MD Internal Medicine resident, PGY-1 Date of Service: Apr 20, 2025 Billing Provider: BRITTNEY GRAVES MD Common Visit Codes: [id number] CARE 30-74 MIN ROBIN ROONEY, RES Apr 20, 2025 11:11 BRITTNEY GRAVES MD Apr 24, 2025 07:48
[2025-04-20 16:41] LABS: MEAN PLATELET VOLUME 8.1 FL (7.4-10.4); RED CELL DISTRIBUTION WIDTH 26.3 % (11.5-14.5)
[2025-04-21] VITALS (7 sets, daily range): BP systolic 122–134; BP diastolic 76–88; PULSE 111–122; RESP 12–24; TEMP 97.8–99; O2SAT 97–100
[2025-04-21 07:46] LABS: MEAN PLATELET VOLUME 8.6 FL (7.4-10.4); RED CELL DISTRIBUTION WIDTH 27.6 % (11.5-14.5)
[2025-04-21 08:02] LABS: CREATININE 0.95 MG/DL (0.60-1.10); TOTAL CARBON DIOXIDE 22.7 MMOL/L (24-32); eCRCL 92 ML/MIN; eGFR 85 ML/MIN
[2025-04-21 08:11] LABS: PLATELET ESTIMATE DECREASED
[2025-04-21 08:13] LABS: ELLIPTOCYTES FEW
[2025-04-21] MEDS: lactulose 20gm/30ml cup NG SCH (09:20)
--- NOTE | 2025-04-21 10:49 | PROGRESS NOTE- Residence ---
Progress Note - Resident Providers to CC Resident Creating Document: ROBIN ROONEY RES ~ Antibiotic Timeout Antibiotic Ordered?: Yes Subjective Patient was seen and examined bedside. The family states that he has not been conversing with them properly today as much as yesterday. He is alert, awake and disorientated and confusely responding to my questions. He has a rectal tube which was cleared last night and he has not had bowel movement since. He is getting tube feeding through NG and he denies nausea and vomiting. But he took it out wit hthe confusion. He denies abdominal pain, fever, chills and states that his right thigh pain has improved. The patient's son and mom was at the bedside, who were explained about the pt's poor prognosis, and higher chances to return back to the loss of consciousness with hepatic encephalopathy. Objective Vital Signs Date Time Temp Pulse Resp B/P (MAP) Pulse Ox O2 Delivery O2 Flow Rate FiO2 04/21/25 07:16 98.1 113 21 124/76 (92) 100 Room Air 04/19/25 20:00 28 04/17/25 23:00 2.0 Result Diagram: 04/21/2572504/21/25725 General: Awake, alert, and disoriented, confused, resting in the bed,, in no acute distress HEENT: Icteric sclera ; pink conjunctiva, dry membranes Cardiac: Regular rhythm, regular rate with no murmurs all over the precordium. Respiratory: Equal breath sounds bilaterally, no tachypnea, no wheezing ,rub or rales. Gastrointestinal: Abdomen distended, soft, non-tender, normal bowel sounds Musculoskeletal: No pedal edema, no cyanosis, significant asterixis noted Neurological: no cranial nerve deficits, pupils equal and reactive to light, reflexes 3+ in upper and lower extremities. Unable to elicit for sensory deficits and gait. Skin: Warm and dry Coagulation Studies Laboratory Tests Test 04/20/25 05:18 Prothrombin Time 32.1 SECONDS (9.0-12.0) H INR International Normalized Ratio 3.5 INR Activated Partial Thromboplast Time 59 SECONDS (22-32) H Coagulation Comments Assessment Assessment A 49-year-old male with alcoholic liver cirrhosis, admitted for management of hepatic encephalopathy in the setting of acute on chronic liver failure. Plan Plan # Hepatic encephalopathy # Decompensated alcoholic liver cirrhosis, Child Vitale C, MELD-Na score 33 Patient is obtunded, only reacts to pain on admission Last drink was 3 months ago Ammonia is 82, Total bilirubin-13.2, Albumin- 1.4, INR- 2.8, platelet count-135 Abdomen/Pelvis CT shows versus with sequelae of portal hypertension including splenomegaly and large volume ascites 4 L of ascitic fluid removed in previous admission on March 31, recommend repeat paracentesis Patient failed swallow test, hence NG tube was placed and started on lactulose 20 g q.2h to aim for 3-4 bowel movements every day Started on rifaximin Mild bleeding while NG tube placement, gastroenterology, Dr. 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 AFP recently done in March is normal Lactic acid was elevated, NS was started at 75 ml/hr Abdominal tenderness present on palpation, likely SBP - IV ceftriaxone 1 g daily Monitor AMS 04/16/25 Patient is obtunded Ammonia is improving, he had a bowel movement Continue lactulose q.4h with goal of 4-5 bowel movements daily Lactic acidosis secondary to liver failure Monitor mentation 04/17/25 Patient is extubated Awake but drowsy He is having bowel movements Ammonia is improving - 81 Continue lactulose q.8h, rifaximin and IV Rocephin Monitor mentation 04/18/25 Awake, alert and oriented Patient is having bowel movements, rectal tube in place Ammonia is normal-16 Paracentesis will be performed today At request of family, abdomen CT was done which shows cirrhosis and portal hypertension with splenomegaly, portosystemic collateral vessels and ascites. Mild cardiomegaly, small left pleural effusion and body wall edema which could reflect a component of CHF and/or volume overload Small subcentimeter hypodense lesion in segment 6 of the liver. Heterogeneous geographic hepatic steatosis predominantly in the left lobe of the liver. Mild wall thickening of the stomach and large bowel most pronounced in the ascending colon which could be infectious or inflammatory gastroenteritis and colitis or related to portal hypertension Follow records requested by family at discharge for transferred to [facility] Hepatology team. INR is 3.8, APTT is high - 79, monitor for high-risk bleeding, not requiring vitamin K at this point Continue midodrine, lactulose, rifaximin, IV Rocephin and Protonix Monitor mentation 04/19/25: Pt was alert and communic[facility] in the presence of his mom and brother at the bedside -the poor prognosis, possible options for further treatment plan, including hospice and palliative care were provided by Dr Graves to pt and his brother and mother. -continue current management 04/20/25 Patient is able to converse with family at bedside, mentation is good Ammonia is normal-36, he is having bowel movements INR-3.5, APTT-59, monitor bleeding Hemoglobin was 6.5, 1 unit PRBC transfused, hemoglobin came up to 7.9 He has no hematemesis Monitor H&H daily, transfused PRBC if Hb < 7, patient will need EGD if Hb significantly drops Patient complained of right thigh pain, no signs of DVT, follow up CPK 04/21/25 Family states that he has not been conversing as much as yesterday He had a bowel movement Ammonia is normal-21 INR is 3, monitor bleeding Vitamin K 10 mg p.o. was started to continue daily Increased lactulose 20 mg to q.4h through NG tube replacement after he took it out himself Sodium is-149, encouraged oral hydration and started free water push q.4h, stopped IV Fluid H&H-8.2/24.8 CPK is normal Monitor BMP, mentation and bowel movements # Acute kidney injury, possibly prerenal due to splanchnic vasodilation from liver failure -Creatinine is trending down -Fena 0.4 %, prerenal BRIAN -Monitor I&O # History of alcohol use disorder -Alcohol withdrawal protocol -ethyl alcohol<10 -Urine Tox screen positive for cannabinoids -IV thiamine, IV folic acid given -manager managed backup services and substance use navigator consulted # Significant hypergammaglobulinemia -Improved slightly -Significantly elevated IgG -Follow SPEP and M spike Code status: Full code DVT prophylaxis: SCD GI prophylaxis: Protonix Pain management: Dilaudid p.r.n. Diet/nutrition: As per nutrition Prognosis: Guarded Disposition: Continue medical management, monitor mentation and bowel movements, PT eval and DC plan Resident attestation: The patient note has been reviewed and supervised by senior residents PGY-2/ PGY-3. Critical care time 35 minutes. Patient was seen, examined and discussed with attending physician. Robin Rooney MD Internal Medicine resident, PGY-1 Date of Service: Apr 21, 2025 Billing Provider: BRITTNEY GRAVES MD Common Visit Codes: [id number] CARE 30-74 MIN ROBIN ROONEY, RES Apr 21, 2025 10:49 LEAH SIGNH, RES Apr 21, 2025 18:09 BRITTNEY GRAVES MD Apr 24, 2025 07:51
--- NOTE | 2025-04-21 12:32 | PROGRESS NOTE- Residence ---
Progress Note - Resident Providers to CC Resident Creating Document: IDA BURGESS RES ~ Antibiotic Timeout Antibiotic Ordered?: Yes Subjective Patient was seen and examined bedside, his family was present during the examination. He is alert, awake and oriented for. He has a NG tube and receiving nutrition through his NG tube. But since the patient is awake and oriented, he can be started on oral feeds after he passes bedside swallow study. G-tube in place. No melena, nausea or vomiting. No respiratory distress. Objective Vital Signs Date Time Temp Pulse Resp B/P (MAP) Pulse Ox O2 Delivery O2 Flow Rate FiO2 04/21/25 11:47 98.3 117 24 132/80 (97) 100 Room Air 04/19/25 20:00 28 04/17/25 23:00 2.0 Result Diagram: 04/21/25 0726 04/21/25 0726 General: Awake, alert, able to communicate, however, appears lethargic. Yellow discoloration of conjunctiva and face. Cachectic HEENT: Yellow discoloration of conjunctiva Resp: Diminished bibasilar breath sounds Heart: Regular Rate and rhythm, normal S1 and S2 without murmur, rub or gallop. Abdomen: German distended, soft and nontender. Extremities: No cyanosis,clubbing or edema. Skin: Warm and Dry. 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 Currently hepatic encephalopathy has resolved with normal ammonia levels. Plan Plan Plan: Plan to initiate oral feeds with full liquid/nectar thick fluids after passing initial swallow study. NG tube can be removed. Speech and swallow evaluation if required Continue lactulose and rifaximin Monitor mental status, ammonia and stool output No GI intervention required at this point Continue supportive care, monitor LFTs, INR, sodium, and renal function Avoid hepatotoxic drugs Strict alcohol abstinence INR 3.5. Consistent with cirrhosis, no active bleeding, continue to monitor PT/INR. Continue hepatic diet with generous carbs and high protein. Rest of the condition management as per hospitalist team Ida Burgess MD Internal Medicine, PGY 1 [facility] Date of Service: Apr 21, 2025 Billing Provider: JOHN JACKSON MD, SHIVANI, RES Apr 21, 2025 12:32
[2025-04-21] MEDS: ondansetron/PF 4mg/2ml inj IV PRN (13:03)
--- NOTE | 2025-04-21 15:04 | VASCULAR REPORT ---
BILATERAL LOWER EXTREMITY VENOUS DUPLEX REASON FOR EXAMINATION: Bilateral lower extremity pain and edema. COMPARISON: None TECHNIQUE: Using real-time freeze-frame technique with a high-frequency transducer, multiple longitudinal and transverse sections were obtained. Simultaneous color flow and spectral Doppler imaging was performed. FINDINGS: There is good visualization of the deep venous system with no intraluminal filling defects identified. Normal venous compressibility is seen and there is flow augmentation. Color flow Doppler imaging is unremarkable. IMPRESSION: NO EVIDENCE OF DEEP VENOUS THROMBOSIS.
[2025-04-21 16:44] LABS: INR 3.0 INR
--- NOTE | 2025-04-21 16:52 | RADIOLOGY REPORT ---
ABDOMINAL RADIOGRAPH Indication: NG placement Technique: Single frontal view of the abdomen was obtained Comparison: DI ABDOMEN,SINGLE VIEW(KUB) on DOS: 04/15/25 FINDINGS: Lines and tubes: The enteric tube terminates in the stomach. There are dilated small bowel loops. Gas seen throughout colon. IMPRESSION: 1. Enteric tube terminates in the stomach. 2. Dilated small bowel loops.
[2025-04-21 17:55] LABS: UA COLLECTION TYPE FOLEY CATH
[2025-04-21 17:58] LABS: HYALINE CASTS 0-3 /LPF (NEGATIVE); MUCUS STRANDS FEW /LPF (Neg); RENAL CELLS, URINE FEW /HPF; SQUAMOUS EPITHELIAL CELL,UR NONE SEEN /LPF (FEW)
[2025-04-22] VITALS (7 sets, daily range): BP systolic 86–129; BP diastolic 37–78; PULSE 93–111; RESP 16–20; TEMP 96.8–97.3; O2SAT 96–100
[2025-04-22] MEDS ORDERED: haloperidol decanoate***LONG-ACTING*** 100mg/ml **IM only** inj. IM ONE (05:00)
[2025-04-22] MEDS: haloperidol lactate 5mg/ml inj IM ONE (05:18)
--- NOTE | 2025-04-22 12:07 | PROGRESS NOTE- Residence ---
Progress Note - Resident Providers to CC Resident Creating Document: IDA BURGESS RES ~ Central Line/PICC still needed: N\A Shook-Non Protocol Shook Indications Met/Not Met: F/C Indications Not Met Antibiotic Timeout Antibiotic Ordered?: Yes Subjective Patient was seen and examined bedside. He pulled out his NG tube, IV lines diagnostic cardiac sonographer last night. He kept pacing back and forth in the hallways. He pooped all over the floor and in the elevators. He has diarrhea, most likely from the lactulose. He has a sitter today until the family arrives. He is alert, but not oriented. He is not responding to his name being called. Objective Vital Signs Date Time Temp Pulse Resp B/P (MAP) Pulse Ox O2 Delivery O2 Flow Rate FiO2 04/22/25 11:11 99 86/37 (53) 96 Room Air 04/22/25 02:37 20 04/22/25 02:00 96.8 04/19/25 20:00 28 Result Diagram: 04/21/25 0726 04/21/25 1607 General: Awake, alert, disoriented, appears lethargic. Yellow discoloration of conjunctiva and face. Cachectic HEENT: Yellow discoloration of conjunctiva Resp: Diminished bibasilar breath sounds Heart: Regular Rate and rhythm, normal S1 and S2 without murmur, rub or gallop. Abdomen: distended but not tense, fluid thrill palpable, soft and nontender. Extremities: No cyanosis,clubbing or edema, tremors in b/l hands and legs Skin: Warm and Dry. No visible rashes Coagulation Studies Laboratory Tests Test 04/20/25 05:18 04/21/25 16:07 04/22/25 11:38 Activated Partial Thromboplast Time 59 SECONDS (22-32) H D-Dimer 6.05 MG/L FEU (0-0.50) H D-Dimer Comment Coagulation Comments Assessment Assessment A 49-year-old male with alcohol associated liver cirrhosis, admitted for management of hepatic encephalopathy in the setting of acute on chronic liver failure. Plan Plan Initiate oral feeds with full liquid/nectar thick fluids after passing bedside swallow study. Patient is 4-5 loose bowel movement today with lactulose and rifaximin, continue the same dosage for today. Ammonia levels are up trending even though its within the normal range. He has worsening confusion even with the right dose of lactulose. We will continue the same for now and continue to monitor his mentation, ammonia and stool output Continue supportive care, monitor LFTs, INR, sodium, and renal function Avoid hepatotoxic drugs Strict alcohol abstinence INR 3.5. Consistent with cirrhosis, no active bleeding, continue to monitor PT/INR. Continue hepatic diet with generous carbs and high protein. Rest of the condition management as per hospitalist team Ida Burgess MD Internal Medicine, PGY 1 [facility] Date of Service: Apr 22, 2025 Billing Provider: JOHN JACKSON MD, SHIVANI, RES Apr 22, 2025 12:07
[2025-04-22 12:12] LABS: MEAN PLATELET VOLUME 9.1 FL (7.4-10.4); RED CELL DISTRIBUTION WIDTH 28.2 % (11.5-14.5)
[2025-04-22 12:13] LABS: INR 2.9 INR
[2025-04-22 12:19] LABS: CREATININE 2.16 MG/DL (0.60-1.10); TOTAL CARBON DIOXIDE 17.4 MMOL/L (24-32); eCRCL 41 ML/MIN; eGFR 33 ML/MIN
--- NOTE | 2025-04-22 13:09 | RADIOLOGY REPORT ---
ABDOMINAL RADIOGRAPH Indication: NG placement Technique: Single frontal view of the abdomen was obtained Comparison: DI ABDOMEN,SINGLE VIEW(KUB) on DOS: 04/21/25 FINDINGS: Lines and tubes: The enteric tube terminates in the stomach. There are dilated bowel loops in the abdomen. No supine radiographic evidence of pneumoperitoneum. Bony structures unremarkable. IMPRESSION: 1. Enteric tube terminates in the stomach. 2. Dilated bowel loops in the abdomen.
[2025-04-22] MEDS: midodrine 5mg tablet PO SCH (13:39)
--- NOTE | 2025-04-22 21:45 | PROGRESS NOTE- Residence ---
Progress Note - Resident Providers to CC Resident Creating Document: ROBIN ROONEY RES ~ Antibiotic Timeout Antibiotic Ordered?: Yes Subjective Patient is altered and refuses vitals, labs and pulled out NG tube again. He kept roaming the hallways and pooping on the floor. He has a sitter today until the family arrives. He is alert, but not oriented. Objective Vital Signs Date Time Temp Pulse Resp B/P (MAP) Pulse Ox O2 Delivery O2 Flow Rate FiO2 04/22/25 15:00 103 19 103/48 (66) 96 Room Air 04/22/25 02:00 96.8 04/19/25 20:00 28 Result Diagram: 04/22/25 1138 04/22/25 1138 Awake, alert, but not oriented, lethargic HEENT: Icteric sclera ; pink conjunctiva, moist mucous membranes Cardiac: Regular rhythm, regular rate with no murmurs all over the precordium. Respiratory: Diminished bibasilar breath sounds, no tachypnea, no wheezing ,rub or rales. Gastrointestinal: Abdomen distended, soft, non-tender, normal bowel sounds Musculoskeletal: No pedal edema, no cyanosis, asterixis present Neurological: no cranial nerve deficits, pupils equal and reactive to light, reflexes 3+ in upper and lower extremities. Unable to elicit for sensory deficits and gait. Skin: Warm and dry Coagulation Studies Laboratory Tests Test 04/20/25 05:18 04/21/25 16:07 04/22/25 11:38 Activated Partial Thromboplast Time 59 SECONDS (22-32) H D-Dimer 6.05 MG/L FEU (0-0.50) H D-Dimer Comment Prothrombin Time 27.2 SECONDS (9.0-12.0) H INR International Normalized Ratio 2.9 INR Coagulation Comments Assessment Assessment A 49-year-old male with alcohol associated liver cirrhosis, admitted for management of hepatic encephalopathy in the setting of acute on chronic liver failure. Plan Plan Hepatic encephalopathy Decompensated alcoholic liver cirrhosis, Child Vitale C, MELD-Na score 33 Patient is alert, but not oriented He has bowel movements Ammonia is normal-25 INR is 2.9, monitor bleeding Continue Vitamin K 10 mg p.o. daily Continue lactulose 20 mg Q6h, rifaximin and midodrine Sodium is-147, encouraged oral hydration and started free water push q.4h H&H-8.9/27.3 AST has uptrended to 100, possibly alcoholic hepatitis Started ursodeoxycholic acid and Prednisone 60 mg p.o Continur IV protonix 40 mg BID Monitor ammonia, INR, bleeding, mentation On soft restraints Discussed with [facility] hepatology for possible referral or transfer for higher level of care Acute kidney injury, possibly hepatorenal syndrome -Creatinine has uptrended to 2.16, Continue free water push Q4h -follow up urine lytes -Monitor I&O History of alcohol use disorder -Alcohol withdrawal protocol -ethyl alcohol<10 -Urine Tox screen positive for cannabinoids -IV thiamine, IV folic acid given -account services manager and substance use navigator consulted Significant hypergammaglobulinemia -Improved slightly -Significantly elevated IgG -Follow SPEP and M spike Code status: Full code DVT prophylaxis: SCD GI prophylaxis: Protonix Pain management: Dilaudid p.r.n. Diet/nutrition: As per nutrition Prognosis: Guarded Disposition: Continue medical management, monitor mentation, Possible transfer to [facility] tomorrow,PT eval and DC plan Resident attestation: The patient note has been reviewed and supervised by senior residents PGY-2/ PGY-3. Patient was seen, examined and discussed with attending physician. Critical care time 35 minutes. Robin Rooney MD Internal Medicine resident, PGY-1 Date of Service: Apr 22, 2025 Billing Provider: BRITTNEY LOCKHART MD Common Visit Codes: [id number] CARE 30-74 MIN ROBIN ROONEY, RES Apr 22, 2025 21:45 BRITTNEY LOCKHART MD Apr 24, 2025 07:52
[2025-04-23] MEDS: lactulose 20gm/30ml cup NG SCH (01:12)
[2025-04-23 02:00] VITALS: BP 111/54; PULSE 106; RESP 18; TEMP 98.1; O2SAT 100
[2025-04-23 06:00] VITALS: BP 105/16; PULSE 98; RESP 16; TEMP 97.6; O2SAT 100
[2025-04-23 06:45] LABS: MEAN PLATELET VOLUME 9.4 FL (7.4-10.4); RED CELL DISTRIBUTION WIDTH 28.9 % (11.5-14.5)
[2025-04-23 07:00] LABS: INR 2.7 INR
[2025-04-23 07:07] LABS: CREATININE 2.23 MG/DL (0.60-1.10); TOTAL CARBON DIOXIDE 19.7 MMOL/L (24-32); eCRCL 39 ML/MIN; eGFR 32 ML/MIN
--- NOTE | 2025-04-23 09:13 | PROGRESS NOTE- Residence ---
Progress Note - Resident Providers to CC Resident Creating Document: IDA BURGESS RES ~ Antibiotic Timeout Antibiotic Ordered?: Yes MRSA Education MRSA Education Provided to pt: N/A Subjective Patient was seen and examined bedside. He is better oriented than yesterday. Responding to his name being called, obeying simple commands. Has a sitter until the family arrives. He is in restraints. NG tube in place and receiving feeds through NG tube. He is having diarrhea, small amount , sheets being changed every 1-2 hours. Objective Vital Signs Date Time Temp Pulse Resp B/P (MAP) Pulse Ox O2 Delivery O2 Flow Rate FiO2 04/23/25 06:00 98 04/23/25 02:00 98.1 18 111/54 (73) 100 Room Air 04/19/25 20:00 28 Result Diagram: 04/23/2560604/23/25606 General: Awake, alert, disoriented, appears lethargic. Yellow discoloration of conjunctiva and face. Cachectic HEENT: Yellow discoloration of conjunctiva Resp: Diminished bibasilar breath sounds Heart: Regular Rate and rhythm, normal S1 and S2 without murmur, rub or gallop. Abdomen: distended but not tense, fluid thrill palpable, soft and nontender. Extremities: No cyanosis,clubbing or edema, tremors in b/l hands and legs Skin: Warm and Dry. No visible rashes Coagulation Studies Laboratory Tests Test 04/20/25 05:18 04/21/25 16:07 04/23/25 06:07 Activated Partial Thromboplast Time 59 SECONDS (22-32) H D-Dimer 6.05 MG/L FEU (0-0.50) H D-Dimer Comment Prothrombin Time 25.2 SECONDS (9.0-12.0) H INR International Normalized Ratio 2.7 INR Coagulation Comments Assessment Assessment A 49-year-old male with alcohol associated liver cirrhosis, admitted for management of hepatic encephalopathy in the setting of acute on chronic liver failure. Plan Plan Continue feeds through NG tube, generally carbs and high-protein. Patient is having loose bowel movement since 2 days with lactulose and rifaximin, can consider to reduce the dose of lactulose. Ammonia levels are within the normal range. Continue to monitor his mentation, ammonia and stool output Continue supportive care, monitor LFTs, INR, electrolytes, and renal function Avoid hepatotoxic drugs Strict alcohol abstinence INR 3.5. Consistent with cirrhosis, no active bleeding, continue to monitor PT/INR. Continue hepatic diet with generous carbs and high protein. Rest of the condition management as per hospitalist team Ida Burgess MD Internal Medicine, PGY 1 [facility] Date of Service: Apr 23, 2025 Billing Provider: JOHN JACKSON MD, SHIVANI, RES Apr 23, 2025 09:13
[2025-04-23 11:00] VITALS: BP 109/61; PULSE 99; RESP 17; TEMP 98.9; O2SAT 100
--- NOTE | 2025-04-23 11:00 | ELECTROCARDIOGRAPH REPORT ---
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 DOMINGA Rodney Measurements Intervals [place] Rate: 97 P: 55 AL: 199 QRS: 35 QRSD: 85 T: 59 QT: 385 QTc: 489 Interpretive Statements Sinus rhythm Borderline prolonged AL interval Borderline low voltage, extremity leads Nonspecific T abnormalities, anterior leads Minimal ST elevation, inferior leads Borderline prolonged QT interval Electronically Signed On 04-23-2025 13:21:[address] DOMINGA Rodney Please click the below link to view image of tracing.
[2025-04-23] MEDS: sodium polystyrene sulfonate 15gm/60ml oral suspension PO ONE (12:27)
--- NOTE | 2025-04-23 16:10 | PROGRESS NOTE- Residence ---
Progress Note - Resident Providers to CC Resident Creating Document: ROBIN ROONEY RES ~ Antibiotic Timeout Antibiotic Ordered?: Yes Subjective Patient was seen and examined bedside. He is better oriented than yesterday, He has a sitter and is in soft restraints. NG tube is in place. He denies abdominal pain or any other complaints. Objective Vital Signs Date Time Temp Pulse Resp B/P (MAP) Pulse Ox O2 Delivery O2 Flow Rate FiO2 04/23/25 11:00 98.9 99 17 109/61 (77) 100 Room Air 04/19/25 20:00 28 Result Diagram: 04/23/2560604/23/25606 Awake, alert, but not oriented, lethargic HEENT: Icteric sclera ; pink conjunctiva, moist mucous membranes Cardiac: Regular rhythm, regular rate with no murmurs all over the precordium. Respiratory: Equal breath sounds bilaterally, no tachypnea, no wheezing ,rub or rales. Gastrointestinal: Abdomen distended, soft, non-tender, normal bowel sounds Musculoskeletal: No pedal edema, no cyanosis, asterixis present Neurological: no cranial nerve deficits, pupils equal and reactive to light, reflexes 3+ in upper and lower extremities. Unable to elicit for sensory deficits and gait. Skin: Warm and dry Coagulation Studies Laboratory Tests Test 04/20/25 05:18 04/21/25 16:07 04/23/25 06:07 Activated Partial Thromboplast Time 59 SECONDS (22-32) H D-Dimer 6.05 MG/L FEU (0-0.50) H D-Dimer Comment Prothrombin Time 25.2 SECONDS (9.0-12.0) H INR International Normalized Ratio 2.7 INR Coagulation Comments Assessment Assessment A 49-year-old male with alcohol associated liver cirrhosis, admitted for management of hepatic encephalopathy in the setting of acute on chronic liver failure. Plan Plan Hepatic encephalopathy Decompensated alcoholic liver cirrhosis, Child Vitale C, MELD-Na score 33 Patient is alert, but not oriented He has bowel movements Ammonia is normal-29 INR is 2.7, monitor bleeding Continue Vitamin K 10 mg p.o. daily Continue lactulose 20 mg Q6h, rifaximin 550 mg BID and midodrine 5 mg Sodium is-148, encouraged oral hydration and continue free water push q.4h H&H-7.4/22.5 AST has downtrended from 100 to 60, possibly alcoholic hepatitis Continue ursodeoxycholic acid and Prednisone 60 mg p.o Continur IV protonix 40 mg BID Monitor ammonia, INR, bleeding, mentation On soft restraints Possible transfer for higher level of care to [facility] Acute kidney injury, possibly hepatorenal syndrome -Creatinine has uptrended to 2.23, Continue free water push Q4h -Patient was retaining urine, oscar's was placed -potassium is high-5.2, Kayexalate 15 gm was given -follow up urine lytes -Monitor I&O History of alcohol use disorder -Alcohol withdrawal protocol -ethyl alcohol<10 -Urine Tox screen positive for cannabinoids -IV thiamine, IV folic acid given -rn women services and substance use navigator consulted Code status: Full code DVT prophylaxis: SCD GI prophylaxis: Protonix Pain management: Dilaudid p.r.n. Diet/nutrition: As per nutrition Prognosis: Guarded Disposition: Continue medical management, monitor mentation, INR, NH3, Possible transfer to [place] [facility] Resident attestation: The patient note has been reviewed and supervised by senior residents PGY-2/ PGY-3. Patient was seen, examined and discussed with attending physician. Critical care time 35 minutes. Robin Rooney MD Internal Medicine resident, PGY-1 Date of Service: Apr 23, 2025 Billing Provider: BRITTNEY LOCKHART MD Common Visit Codes: [id number] CARE 30-74 MIN ROBIN ROONEY, RES Apr 23, 2025 16:10 BRITTNEY LOCKHART MD Apr 24, 2025 07:53
[2025-04-23] MEDS: LidoCAINE 2% Topical Jelly 11mL syringe (UROJET) TOP ONE (17:33)
[2025-04-23 18:00] VITALS: BP 110/66; PULSE 94; RESP 16; TEMP 97.3; O2SAT 97
[2025-04-23 20:00] VITALS: RESP 18; O2SAT 96
[2025-04-23 22:00] VITALS: BP 110/64; PULSE 87; RESP 16; TEMP 97; O2SAT 99
[2025-04-24] VITALS (7 sets, daily range): BP systolic 102–125; BP diastolic 41–90; PULSE 71–94; RESP 16–20; TEMP 97.4–97.6; O2SAT 94–100
[2025-04-24 05:50] LABS: MEAN PLATELET VOLUME 9.2 FL (7.4-10.4); RED CELL DISTRIBUTION WIDTH 28.7 % (11.5-14.5)
[2025-04-24 05:54] LABS: INR 2.6 INR
[2025-04-24 05:57] LABS: CREATININE 2.07 MG/DL (0.60-1.10); TOTAL CARBON DIOXIDE 21.6 MMOL/L (24-32); eCRCL 42 ML/MIN; eGFR 35 ML/MIN
--- NOTE | 2025-04-24 11:42 | PROGRESS NOTE- Residence ---
Progress Note - Resident Providers to CC Resident Creating Document: IDA BURGESS RES ~ Central Line/PICC still needed: N\A Shook-Non Protocol Shook Indications Met/Not Met: F/C Indications Not Met Antibiotic Timeout Antibiotic Ordered?: Yes Subjective Patient was seen and examined bedside. He is better oriented than yesterday. Responding to his name being called, obeying simple commands. Has a sitter until the family arrives. NG tube in place and receiving feeds through NG tube. Objective Vital Signs Date Time Temp Pulse Resp B/P (MAP) Pulse Ox O2 Delivery O2 Flow Rate FiO2 04/24/25 08:00 Room Air 04/24/25 06:00 91 04/24/25 02:00 97.4 16 112/67 (82) 99 Result Diagram: 04/24/25 0455 04/24/25 0455 General: Awake, alert, disoriented, appears lethargic. Yellow discoloration of conjunctiva and face. Cachectic HEENT: Yellow discoloration of conjunctiva Resp: Diminished bibasilar breath sounds Heart: Regular Rate and rhythm, normal S1 and S2 without murmur, rub or gallop. Abdomen: distended but not tense, fluid thrill palpable, soft and nontender. Extremities: No cyanosis,clubbing or edema, tremors in b/l hands and legs Skin: Warm and Dry. No visible rashes Coagulation Studies Laboratory Tests Test 04/20/25 05:18 04/21/25 16:07 04/24/25 04:55 Activated Partial Thromboplast Time 59 SECONDS (22-32) H D-Dimer 6.05 MG/L FEU (0-0.50) H D-Dimer Comment Prothrombin Time 24.3 SECONDS (9.0-12.0) H INR International Normalized Ratio 2.6 INR Coagulation Comments Assessment Assessment A 49-year-old male with alcohol associated liver cirrhosis, admitted for management of hepatic encephalopathy in the setting of acute on chronic liver failure. Plan Plan Continue feeds through NG tube, generaous carbs and high-protein. Patient is having loose bowel movement since 2 days with lactulose and rifaximin, can consider to reduce the dose of lactulose. Ammonia levels are within the normal range. Continue to monitor his mentation, ammonia and stool output Continue supportive care, monitor LFTs, INR, electrolytes, and renal function Avoid hepatotoxic drugs Strict alcohol abstinence Continue hepatic diet with generous carbs and high protein. There is no requirement for GI intervention at this point and hence we are signing off on this case. Rest of the condition management as per hospitalist team Ida Burgess MD Internal Medicine, PGY 1 [facility] Date of Service: Apr 24, 2025 Billing Provider: JOHN JACKSON MD, SHIVANI, RES Apr 24, 2025 11:42
[2025-04-24 15:00] LABS: MEAN PLATELET VOLUME 9.2 FL (7.4-10.4); RED CELL DISTRIBUTION WIDTH 29.1 % (11.5-14.5)
--- NOTE | 2025-04-24 17:46 | PROGRESS NOTE- Residence ---
Progress Note - Resident Providers to CC Resident Creating Document: ROBIN ROONEY RES ~ Antibiotic Timeout Antibiotic Ordered?: Yes Subjective Patient was seen and examined bedside. He is better oriented than yesterday, he has an NG tube and Shook's in place, he has a sitter and no restraints at the moment. He is not agitated. After discussion with casework manager for possible transfer, we got a call from [facility] and spoke to Dr. Sauer, film booker. We explained about the patient including patient's current situation, vitals, labs, and sensorium status, social status, family support and poor compliance to medication and alcohol cessation. They were reluctant to accept the patient due to patient's hypernatremia which was explained that he had accidentally removed his NG tube twice due to which we were unable to give free water fluid push through his NG tube yesterday, which will be addressed soon as he has NG tube in place now. The [facility] team will consider virtual evaluation of the patient including video meeting to assess the patient and also have a social insurance specialist meeting. Objective Vital Signs Date Time Temp Pulse Resp B/P (MAP) Pulse Ox O2 Delivery O2 Flow Rate FiO2 04/24/25 08:00 Room Air 04/24/25 06:00 91 04/24/25 02:00 97.4 16 112/67 (82) 99 Result Diagram: 04/24/25 1423 04/24/25 0455 Awake, alert, not oriented, lethargic HEENT: Icteric sclera ; pink conjunctiva, moist mucous membranes, NG tube in place Cardiac: Regular rhythm, regular rate with no murmurs all over the precordium. Respiratory: Equal breath sounds bilaterally, no tachypnea, no wheezing ,rub or rales. Gastrointestinal: Abdomen distended, soft, non-tender, normal bowel sounds Musculoskeletal: No pedal edema, no cyanosis, asterixis present Neurological: no cranial nerve deficits, pupils equal and reactive to light, reflexes 3+ in upper and lower extremities. Unable to elicit for sensory deficits and gait. Skin: Warm and dry Coagulation Studies Laboratory Tests Test 04/20/25 05:18 04/21/25 16:07 04/24/25 04:55 Activated Partial Thromboplast Time 59 SECONDS (22-32) H D-Dimer 6.05 MG/L FEU (0-0.50) H D-Dimer Comment Prothrombin Time 24.3 SECONDS (9.0-12.0) H INR International Normalized Ratio 2.6 INR Coagulation Comments Assessment Assessment A 49-year-old male with alcohol associated liver cirrhosis, admitted for management of hepatic encephalopathy in the setting of acute on chronic liver failure. Plan Plan Hepatic encephalopathy Decompensated alcoholic liver cirrhosis, Child Vitale C, MELD-Na score 33 Patient is alert, but not oriented He has bowel movements Ammonia is normal-21 INR is 2.6, monitor bleeding Continue Vitamin K 10 mg p.o. daily Continue lactulose 20 mg Q6h, rifaximin 550 mg BID and midodrine 5 mg H&H-7.7/24.1 AST has been downtrending, possibly alcoholic hepatitis Continue ursodeoxycholic acid and Prednisone 60 mg p.o Continur IV protonix 40 mg BID Monitor ammonia, INR, bleeding, mentation Hypernatremia Sodium is-150 in the a.m., encouraged oral hydration and continue free water push q.4h through NG tube Sodium downtrended to 144 by the end of the day Acute kidney injury, possibly hepatorenal syndrome -Creatinine has been downtrending after continuous free water push Q4h through NG tube -Shook's is in place -potassium is high-5.4, Kayexalate 60 gm was given -follow up urine lytes -Monitor I&O History of alcohol use disorder -Alcohol withdrawal protocol -ethyl alcohol<10 -Urine Tox screen positive for cannabinoids -IV thiamine, IV folic acid given -manager managed backup services and substance use navigator consulted Code status: Full code DVT prophylaxis: SCD GI prophylaxis: Protonix Pain management: Dilaudid p.r.n. Diet/nutrition: As per nutrition Prognosis: Guarded Disposition: Continue medical management, monitor mentation, INR, NH3, Possible transfer to [facility] tomorrow Resident attestation: The patient note has been reviewed and supervised by senior residents PGY-2/ PGY-3. Patient was seen, examined and discussed with attending physician. Robin Rooney MD Internal Medicine resident, PGY-1 Date of Service: Apr 24, 2025 Billing Provider: BRITTNEY LOCKHART MD Common Visit Codes: [id number] INP/OBS CARE(HIGH) ROBIN ROONEY, RES Apr 24, 2025 17:46 BRITTNEY LOCKHART MD May 01, 2025 07:19
[2025-04-24 18:01] LABS: CREATININE 2.03 MG/DL (0.60-1.10); TOTAL CARBON DIOXIDE 22.4 MMOL/L (24-32); eCRCL 43 ML/MIN; eGFR 35 ML/MIN
[2025-04-24] MEDS: Nepro carb steady vanilla 8oz. PO SCH (18:03)
[2025-04-24 21:43] LABS: CREATININE 2.02 MG/DL (0.60-1.10); TOTAL CARBON DIOXIDE 21.2 MMOL/L (24-32); eCRCL 43 ML/MIN; eGFR 36 ML/MIN
[2025-04-24] MEDS: sodium polystyrene sulfonate 15gm/60ml oral suspension PO ONE (21:49)
[2025-04-25] VITALS (10 sets, daily range): BP systolic 100–121; BP diastolic 51–72; PULSE 77–92; RESP 10–19; TEMP 97.3–97.6; O2SAT 97–100
[2025-04-25 03:27] LABS: MEAN PLATELET VOLUME 9.4 FL (7.4-10.4); RED CELL DISTRIBUTION WIDTH 28.6 % (11.5-14.5)
[2025-04-25 03:57] LABS: INR 2.6 INR
[2025-04-25 04:03] LABS: CREATININE 1.97 MG/DL (0.60-1.10); TOTAL CARBON DIOXIDE 21.0 MMOL/L (24-32); eCRCL 44 ML/MIN; eGFR 37 ML/MIN
[2025-04-25 07:35] LABS: CREATININE 1.90 MG/DL (0.60-1.10); TOTAL CARBON DIOXIDE 21.3 MMOL/L (24-32); eCRCL 46 ML/MIN; eGFR 38 ML/MIN
[2025-04-25 11:34] LABS: CREATININE 1.97 MG/DL (0.60-1.10); TOTAL CARBON DIOXIDE 21.7 MMOL/L (24-32); eCRCL 44 ML/MIN; eGFR 37 ML/MIN
[2025-04-25 15:45] LABS: CREATININE 1.96 MG/DL (0.60-1.10); TOTAL CARBON DIOXIDE 21.0 MMOL/L (24-32); eCRCL 45 ML/MIN; eGFR 37 ML/MIN
--- NOTE | 2025-04-25 18:38 | PROGRESS NOTE ---
Progress Note - Angio Providers to CC ~ Angio Progress Note: S/P Paracentesis with 2 MD consent. LLQ Total of 2400cc clear yellow fluid removed. No immed complications, EBL zero. Dictated. EVA MCGRAW MD Apr 25, 2025 18:38
--- NOTE | 2025-04-25 18:40 | RADIOLOGY REPORT ---
ULTRASOUND-GUIDED PARACENTESIS PRE-PROCEDURE DIAGNOSIS: Ascites POST-PROCEDURE DIAGNOSIS: Same HISTORY: Same COMPLICATIONS: None ESTIMATED BLOOD LOSS: 0 PROCEDURE: The nature, alternatives, and risks of the procedure were discussed with the patient and informed consent was disclosed. Ultrasound was used to examine the lower quadrant. An appropriate position was marked on the skin. After sterile preparation and draping, 1% Lidocaine 10 mL subcutaneous anesthesia was administered. The peritoneal space was entered at the left lower quadrant with direct ultrasound guidance with a 5-Yi Yueh catheter. Approximately 2400 mL of clear yellow fluid was removed. The patient tolerated the procedure well without complication. FINDINGS: Moderate volume ascites IMPRESSION: Successful therapeutic paracentesis.
--- NOTE | 2025-04-25 18:58 | PROGRESS NOTE- Residence ---
Progress Note - Resident Providers to CC Resident Creating Document: ROBIN ROONEY RES ~ Antibiotic Timeout Antibiotic Ordered?: Yes Subjective Patient was seen and examined bedside. He is better oriented than yesterday, he has an NG tube and Shook's in place, He is drinking fluids and tried eating egg. He has a sitter and no restraints at the moment. He is not agitated. Paracentesis was done today by Dr. Bray and 2.4 L of clear yellow fluid was removed. We spoke to [facility] with help of the hospice case manager, Miss Dugan and they denied the patient stating that he is not a candidate for liver transplant. [place] opinion [place] [facility] [place]. [facility] [place] called for interviewing the patient today, they denied the patient and they stated that they were not able to engage and the patient had limited sobriety, and patient is not meeting criteria for potential liver transplant at the moment. However, they are willing to reconsider in the future if patient engages better and in alcohol sobriety. Objective Vital Signs Date Time Temp Pulse Resp B/P (MAP) Pulse Ox O2 Delivery O2 Flow Rate FiO2 04/25/25 18:03 79 16 117/63 (81) 100 Room Air 04/25/25 15:00 97.6 Result Diagram: 04/25/25 0309 04/25/25 1514 Awake, alert, better oriented than yesterday, lethargic HEENT: Icteric sclera ; pink conjunctiva, moist mucous membranes, NG tube in place Cardiac: Regular rhythm, regular rate with no murmurs all over the precordium. Respiratory: Equal breath sounds bilaterally, no tachypnea, no wheezing ,rub or rales. Gastrointestinal: Abdomen moderately distended, soft, non-tender, normal bowel sounds Musculoskeletal: No pedal edema, no cyanosis, asterixis present Neurological: no cranial nerve deficits, pupils equal and reactive to light, reflexes 3+ in upper and lower extremities. Unable to elicit for sensory deficits and gait. Skin: Warm and dry Coagulation Studies Laboratory Tests Test 04/20/25 05:18 04/21/25 16:07 04/25/25 03:09 Activated Partial Thromboplast Time 59 SECONDS (22-32) H D-Dimer 6.05 MG/L FEU (0-0.50) H D-Dimer Comment Prothrombin Time 24.3 SECONDS (9.0-12.0) H INR International Normalized Ratio 2.6 INR Coagulation Comments Assessment Assessment A 49-year-old male with alcohol associated liver cirrhosis, admitted for management of hepatic encephalopathy in the setting of acute on chronic liver failure. Plan Plan Hepatic encephalopathy Decompensated alcoholic liver cirrhosis, Child Vitale C, MELD-Na score 33 Patient is alert, and better oriented than yesterday He has bowel movements Ammonia is normal INR is 2.6, monitor bleeding Continue Vitamin K 10 mg p.o. daily Continue lactulose 20 mg Q6h, rifaximin 550 mg BID and midodrine 5 mg H&H-8.4/25.7 AST has been downtrending Continue ursodeoxycholic acid and Prednisone 60 mg p.o Continur IV protonix 40 mg BID Monitor ammonia, INR, bleeding, mentation Sodium is normal Paracentesis was done, 2.5 L of clear yellow fluid was removed today Acute kidney injury, possibly hepatorenal syndrome -Creatinine has been downtrending -Shook's is in place -Monitor I&O History of alcohol use disorder -Alcohol withdrawal protocol -ethyl alcohol<10 -Urine Tox screen positive for cannabinoids -IV thiamine, IV folic acid given -career services director and substance use navigator consulted Code status: Full code DVT prophylaxis: SCD GI prophylaxis: Protonix Pain management: Dilaudid p.r.n. Diet/nutrition: soft to chew food Prognosis: Guarded Disposition: [facility] [place] team denied the patient stating he is not meeting the criteria for liver transplant currently, Continue medical management, monitor mentation, INR, NH3 Resident MD attestation: The patient note has been reviewed and supervised by senior residents PGY-2/ PGY-3. Patient was seen, examined and discussed with attending physician, Dr. Ely Rooney MD Internal Medicine resident, PGY-1 Date of Service: Apr 25, 2025 Billing Provider: BRITTNEY LOCKHART MD Common Visit Codes: [id number] INP/OBS CARE(HIGH) ROBIN ROONEY, RES Apr 25, 2025 18:58 BRTITNEY LOCKHART MD May 01, 2025 07:19
[2025-04-25 21:20] LABS: CREATININE 1.94 MG/DL (0.60-1.10); TOTAL CARBON DIOXIDE 21.5 MMOL/L (24-32); eCRCL 45 ML/MIN; eGFR 37 ML/MIN
[2025-04-25 23:12] LABS: CREATININE 1.89 MG/DL (0.60-1.10); TOTAL CARBON DIOXIDE 22.2 MMOL/L (24-32); eCRCL 46 ML/MIN; eGFR 38 ML/MIN
[2025-04-26] VITALS (8 sets, daily range): BP systolic 101–122; BP diastolic 57–74; PULSE 75–99; RESP 11–20; TEMP 97–98; O2SAT 94–100
[2025-04-26 07:06] LABS: INR 2.4 INR
[2025-04-26 07:31] LABS: MEAN PLATELET VOLUME 9.4 FL (7.4-10.4); RED CELL DISTRIBUTION WIDTH 28.3 % (11.5-14.5)
[2025-04-26 07:37] LABS: CREATININE 1.96 MG/DL (0.60-1.10); TOTAL CARBON DIOXIDE 21.2 MMOL/L (24-32); eCRCL 45 ML/MIN; eGFR 37 ML/MIN
[2025-04-26 09:07] LABS: PLATELET ESTIMATE DECREASED
--- NOTE | 2025-04-26 15:16 | PROGRESS NOTE- Residence ---
Progress Note - Resident Providers to CC Resident Creating Document: LEAH SINGH RES ~ Antibiotic Timeout Antibiotic Ordered?: Yes Subjective Pt was seen at the bedside this morning in the presence of his POA gely and her , who is the ICU Nurse raised the questions for the further management plan. Pt and gely with her were explained in details about the poor prognosis of current conditions at the decompensated liver failure from the late advanced stage of Cirrhosis of liver from alcohol use causing the fluctuating Hepatic encephalopathy. Also delivered the messages of pt being transferred to the [facility] Hepatology for the possible transplant where they rejected to accept him, and also obtained the declining acceptance from the [facility] in [place] for the second opinion with the reason of the limited sobriety EtOH and did not meet the criteria in their transplant program after their hepatology team assessed the patient virtually for the social assessment, and other engagement etc. The niece and wonders if the patient will be discharged with the NG tube placement for lactulose delivering, which will not be happening to home discharge. Pt received the abd tapping/ paracentesis yesterday by IR to obtain the 2.4 L of serous ascites fluid sent out to the lab for the analysis. Objective Vital Signs Date Time Temp Pulse Resp B/P (MAP) Pulse Ox O2 Delivery O2 Flow Rate FiO2 04/26/25 11:00 97.7 88 16 115/57 (76) 100 Room Air Result Diagram: 04/26/25 0706 04/26/25 0619 General: Awake, alert, and oriented, slightly confused, resting in the bed,, in no acute distress, but overall general conditions are getting better. HEENT: NG tube in situ. Icteric sclera ; pink conjunctiva, dry membranes Cardiac: Regular rhythm, regular rate with no murmurs all over the precordium. Respiratory: Equal breath sounds bilaterally, no tachypnea, no wheezing ,rub or rales. Gastrointestinal: Abdomen distended, soft, non-tender, normal bowel sounds Musculoskeletal: No pedal edema, no cyanosis, significant asterixis noted Neurological: no cranial nerve deficits, pupils equal and reactive to light, reflexes 3+ in upper and lower extremities. Unable to elicit for sensory deficits and gait. Skin: Warm and dry Coagulation Studies Laboratory Tests Test 04/20/25 05:18 04/21/25 16:07 04/26/25 06:19 Activated Partial Thromboplast Time 59 SECONDS (22-32) H D-Dimer 6.05 MG/L FEU (0-0.50) H D-Dimer Comment Prothrombin Time 22.9 SECONDS (9.0-12.0) H INR International Normalized Ratio 2.4 INR Coagulation Comments Assessment Assessment A 49-year-old male with alcohol associated liver cirrhosis, who was admitted for management of hepatic encephalopathy in the setting of acute on chronic liver failure. Plan Plan # Hepatic encephalopathy # Decompensated alcoholic liver cirrhosis, Child Vitale C, MELD-Na score 33 Patient is alert, and better oriented than yesterday He has bowel movements 3- 4 times per day on the PO Lactulose Q4H Ammonia is normal 23 INR is 2.4, monitor bleeding Continue Vitamin K 10 mg p.o. daily Continue lactulose 20 mg Q4h, rifaximin 550 mg BID and midodrine 5 mg H&H-7.7.3 AST has been downtrending Continue ursodeoxycholic acid and Prednisone 60 mg p.o Continur IV protonix 40 mg BID Monitor ammonia, INR, bleeding, mentation Sodium is normal Paracentesis was done, 2.5 L of clear yellow fluid was removed yesterday sent out for the analysis Transfer out to [facility] and second opinion at [facility] were denied. Daily ST eval to assess for smooth oral feeding process to discontinue NG tube on discharge. # Acute kidney injury, possibly hepatorenal syndrome -Creatinine has been downtrending, continue monitoring -continue TF Free water placement -Shook's is in place -Monitor I&O # History of alcohol use disorder -Alcohol withdrawal protocol -ethyl alcohol<10 -Urine Tox screen positive for cannabinoids -IV thiamine, IV folic acid given -learning services coordinator and substance use navigator consulted Code status: Full code DVT prophylaxis: SCD GI prophylaxis: Protonix Pain management: Dilaudid p.r.n. Diet/nutrition: soft to chew food Prognosis: Guarded Disposition: Continue medical management including antibiotics and lactulose, maintain bowel movement at least 3-4 times per day, daily ST eval, monitor fluctuating encephalopathy, INR, NH3 Resident attestation: Patient was seen, examined and discussed with attending physician, Dr. Ely SINGH MD Internal Medicine Resident, PGY3 [facility] Date of Service: Apr 26, 2025 Billing Provider: BRITTNEY LOCKHART MD Common Visit Codes: [id number] INP/OBS CARE(HIGH) LEAH SINGH, RES Apr 26, 2025 15:16 BRITTNEY LOCKHART MD May 01, 2025 07:19
[2025-04-26] MEDS ORDERED: LIDOcaine 2% Viscous 15ml cup MM PRN (21:05)
[2025-04-26] MEDS: LIDOcaine 2% Viscous 15ml cup MM PRN (22:36)
[2025-04-27] VITALS (8 sets, daily range): BP systolic 100–114; BP diastolic 52–66; PULSE 83–94; RESP 13–16; TEMP 96.9–97.8; O2SAT 94–99
[2025-04-27 06:59] LABS: MEAN PLATELET VOLUME 9.3 FL (7.4-10.4); RED CELL DISTRIBUTION WIDTH 28.3 % (11.5-14.5)
[2025-04-27 07:05] LABS: INR 2.4 INR
[2025-04-27 07:19] LABS: CREATININE 1.97 MG/DL (0.60-1.10); TOTAL CARBON DIOXIDE 21.8 MMOL/L (24-32); eCRCL 44 ML/MIN; eGFR 37 ML/MIN
[2025-04-27 07:48] LABS: PLATELET ESTIMATE DECREASED
[2025-04-27] MEDS: lactulose 20gm/30ml cup NG SCH (08:05)
[2025-04-27] MEDS ORDERED: LIDOcaine 2% Viscous 15ml cup MM PRN (12:20)
--- NOTE | 2025-04-27 15:38 | PROGRESS NOTE- Residence ---
Progress Note - Resident Providers to CC Resident Creating Document: ROBIN ROONEY RES ~ Antibiotic Timeout Antibiotic Ordered?: Yes Subjective Patient was seen and examined bedside. He is able to tolerate p.o. food but has decreased intake. He bit his tongue while eating there is no bleeding or swelling. He has a male wick in place. He is less altered. He complains of abdominal pressure due to distention. He had a bowel movement today morning. Objective Vital Signs Date Time Temp Pulse Resp B/P (MAP) Pulse Ox O2 Delivery O2 Flow Rate FiO2 04/27/25 11:00 97.2 83 15 114/57 (76) 95 Room Air Result Diagram: 04/27/25 0545 04/27/25 0545 Awake, alert, better oriented, lethargic HEENT: Icteric sclera ; pink conjunctiva, moist mucous membranes, NG tube in place, small laceration noted on tongue with no hematoma Cardiac: Regular rhythm, regular rate with no murmurs all over the precordium. Respiratory: Equal breath sounds bilaterally, no tachypnea, no wheezing ,rub or rales. Gastrointestinal: Abdomen moderately distended, soft, non-tender, normal bowel sounds Musculoskeletal: No pedal edema, no cyanosis, asterixis noted Neurological: no cranial nerve deficits, pupils equal and reactive to light, reflexes 3+ in upper and lower extremities. Unable to elicit for sensory deficits and gait Skin: Warm and dry Coagulation Studies Laboratory Tests Test 04/20/25 05:18 04/21/25 16:07 04/27/25 05:45 Activated Partial Thromboplast Time 59 SECONDS (22-32) H D-Dimer 6.05 MG/L FEU (0-0.50) H D-Dimer Comment Prothrombin Time 22.4 SECONDS (9.0-12.0) H INR International Normalized Ratio 2.4 INR Coagulation Comments Assessment Assessment A 49-year-old male with alcohol associated liver cirrhosis, who was admitted for management of hepatic encephalopathy in the setting of acute on chronic liver failure. Plan Plan # Hepatic encephalopathy # Decompensated alcoholic liver cirrhosis, Child Vitale C, MELD-Na score 33 Patient is alert, and better oriented than yesterday He had 1 bowel movement today in the a.m Ammonia has up trended from 23 to 44, Increased lactulose 20 gm Q6h to Q4h for goal of 2-3 bowel movements per day Continue rifaximin 550 mg BID and midodrine 5 mg INR is 2.4, monitor bleeding Continue Vitamin K 10 mg p.o. daily H&H- AST has uptrended to 65 Continue ursodeoxycholic acid and Prednisone 60 mg p.o Continur IV protonix 40 mg BID Monitor ammonia, INR, bleeding, mentation Paracentesis was done, 2.5 L of clear yellow fluid was removed day before yesterday on 04/25/[address] eval to assess for smooth oral feeding process to discontinue NG tube on discharge. Transfer out to [facility] and second opinion at [facility] were denied as patient did not fir into the criteria for possible liver transplantation Plan to discharge home with home health after stabilization # Acute kidney injury, possibly hepatorenal syndrome -Creatinine has been downtrending, continue monitoring -continue TF Free water placement -Male wick in place -Monitor I&O # History of alcohol use disorder -Alcohol withdrawal protocol -ethyl alcohol<10 -Urine Tox screen positive for cannabinoids -IV thiamine, IV folic acid given -director learning services and substance use navigator consulted Code status: Full code DVT prophylaxis: SCD GI prophylaxis: Protonix Pain management: Acetaminophen p.r.n. Diet/nutrition: soft to chew food and tube feeding Prognosis: Guarded Disposition: Continue antibiotics and lactulose, maintain bowel movement at least 3-4 times per day, Monitor ammonia, INR, bleeding, mentation, liver panel, Encourage oral feeding, daily ST eval, PT eval and possible discharge to home with home health after patient is stable and can take food and lactulose orally. Resident MD attestation: The patient note has been reviewed and supervised by senior residents PGY-2/ PGY-3. Patient was seen, examined and discussed with attending physician, Dr. Ely Rooney MD Internal Medicine resident, PGY-1 Date of Service: Apr 27, 2025 Billing Provider: BRITTNEY LOCKHART MD Common Visit Codes: [id number] INP/OBS CARE(HIGH) ROBIN ROONEY, RES Apr 27, 2025 15:38 BRITTNEY LOCKHART MD May 01, 2025 07:19
[2025-04-27] MEDS ORDERED: midodrine 5mg tablet NG SCH (16:12)
[2025-04-27] MEDS: HYDROcodone/acetaminophen 5mg/325mg tablet PO PRN (17:03)
[2025-04-28] VITALS (7 sets, daily range): BP systolic 107–120; BP diastolic 53–68; PULSE 88–90; RESP 12–21; TEMP 97.2–97.8; O2SAT 92–99
[2025-04-28 06:18] LABS: MEAN PLATELET VOLUME 9.8 FL (7.4-10.4); RED CELL DISTRIBUTION WIDTH 27.2 % (11.5-14.5)
[2025-04-28] MEDS: scopolamine 1MG/72H patch 1 PATCH PATCH.TD.3 TD ONE (06:30)
[2025-04-28 06:34] LABS: INR 2.4 INR
[2025-04-28 06:55] LABS: CREATININE 2.27 MG/DL (0.60-1.10); TOTAL CARBON DIOXIDE 19.9 MMOL/L (24-32); eCRCL 39 ML/MIN; eGFR 31 ML/MIN
[2025-04-28 07:25] LABS: PLATELET ESTIMATE DECREASED
--- NOTE | 2025-04-28 08:31 | RADIOLOGY REPORT ---
CLINICAL INFORMATION: Leukocytosis. TECHNIQUE: Single AP portable chest radiograph was obtained. COMPARISON: DI CHEST,SINGLE VIEW on DOS: 04/17/25, DI CHEST,SINGLE VIEW on DOS: 04/16/25, DI CHEST,SINGLE VIEW on DOS: 04/15/25 FINDINGS: Lungs: Low lung volumes with bibasilar atelectasis. No focal consolidation visualized. No pneumothorax or pleural effusion. Cardiac: Heart size is within normal limits. Pulmonary vasculature: Unremarkable. Mediastinum/gaviota: Enteric tube reaches the stomach. Bones: No acute osseous abnormality identified. Other: No other significant findings. IMPRESSION: 1. Low lung volumes with bibasilar atelectasis. No focal consolidation or other evidence of acute disease in the chest. 2. Enteric tube reaches the stomach.
[2025-04-28] MEDS: CefTRIAXone/D5W-Rocephin 1gm 50 ML IV SCH (08:43)
[2025-04-28 08:52] LABS: OSMOLALITY 324 MOSM/K (280-300)
--- NOTE | 2025-04-28 11:37 | PROGRESS NOTE- Residence ---
Progress Note - Resident Providers to CC Resident Creating Document: ROBIN ROONEY RES ~ Antibiotic Timeout Antibiotic Ordered?: Yes Subjective Patient was seen and examined bedside. He is able to tolerate p.o. food but has decreased intake. We are encouraging increased p.o intake with the goal of removal of NG tube. He complains of nausea. He still has pain from the tongue bite but no hematoma. He has a male wick in place. He is oriented. He complains of abdominal pressure due to distention. He had a bowel movement today morning and 3 last night. Objective Vital Signs Date Time Temp Pulse Resp B/P (MAP) Pulse Ox O2 Delivery O2 Flow Rate FiO2 04/28/25 08:00 12 99 Room Air 04/28/25 07:19 97.5 88 107/63 (78) Result Diagram: 04/28/25 0550 04/28/25 0550 Awake, alert, better oriented, lethargic, NG tube and male wick in place HEENT: Icteric sclera ; pink conjunctiva, moist mucous membranes, small laceration noted on tongue with no hematoma Cardiac: Regular rhythm, regular rate with no murmurs all over the precordium. Respiratory: Equal breath sounds bilaterally, no tachypnea, no wheezing ,rub or rales. Gastrointestinal: Abdomen moderately distended, firm but not rigid, non-tender, normal bowel sounds Musculoskeletal: No pedal edema, no cyanosis, asterixis noted Neurological: no cranial nerve deficits, pupils equal and reactive to light, reflexes 3+ in upper and lower extremities. Unable to elicit for sensory deficits and gait Skin: Warm and dry Coagulation Studies Laboratory Tests Test 04/20/25 05:18 04/21/25 16:07 04/28/25 05:50 Activated Partial Thromboplast Time 59 SECONDS (22-32) H D-Dimer 6.05 MG/L FEU (0-0.50) H D-Dimer Comment Prothrombin Time 23.0 SECONDS (9.0-12.0) H INR International Normalized Ratio 2.4 INR Coagulation Comments Assessment Assessment A 49-year-old male with alcohol associated liver cirrhosis, who was admitted for management of hepatic encephalopathy in the setting of acute on chronic liver failure. Plan Plan # Hepatic encephalopathy # Decompensated alcoholic liver cirrhosis, Child Vitale C, MELD-Na score 33 Patient is alert, and better oriented than yesterday He had 1 bowel movement today in the a.m, and 3 bowel movements last night Ammonia has downtrended to 24, Continue lactulose 20 gm Q4h for goal of 2-3 bowel movements per day Continue rifaximin 550 mg BID and midodrine 5 mg INR is 2.4, monitor bleeding Continue Vitamin K 10 mg p.o. daily H&H-8.7/26.3 AST has uptrended to 71, ALT is normal Alkaline phosphatase has uptrended to 162, total bilirubin is 14.6 Continue ursodeoxycholic acid and Prednisone 60 mg p.o Continur IV protonix 40 mg BID Patient has moderately distended abdomen with mild abdominal pressure but no tenderness Paracentesis was done, 2.5 L of clear yellow fluid was removed on 04/25/25 WBC has uptrended to 13.4, procalcitonin is normal Patient does not have fever and no abdominal tenderness- less likely SBP Follow up urinalysis, urine lytes CXR shows low lung volumes with bibasilar atelectasis with no focal consolidation Started on IV ceftriaxone 1 gm-day 1, he received 8 day course of IV ceftriaxone from 04/15 to 04/22 Transfer out to [facility] and second opinion at [facility] were denied as patient did not fit into the criteria for possible liver transplantation Plan to discharge home with home health after stabilization PT has cleared the patient for discharge to home with home health Daily ST ramy to assess for smooth oral feeding process to discontinue NG tube on discharge Decreased NG tube feeding from 70 to 30 ml/hr Patient is tolerating soft to chew food but has decreased intake, encouraging oral diet, continue zofran before p.o food, IV Reglan 5 mg Q6h PRN Scopolamine 1 mg/72 hr patch was given # Acute kidney injury, possibly hepatorenal syndrome -Creatinine has uptrended from 1.97 to 2.27 -continue TF Free water placement Q6h -Male wick in place -Monitor I&O -IV albumin 25 % 100 ml one time dose given -Monitor creatinine and BUN #Hyperosmolar hyponatremia sodium is 132, serum osmolality is high-324 Glucose is 138, not much elevated to cause hyperglycemia induced hyponatremia BUN is elevated-108 Decreased free water pushes from Q4h to Q6h Started albumin 25 % 100 ml # History of alcohol use disorder -Alcohol withdrawal protocol -ethyl alcohol<10 -Urine Tox screen positive for cannabinoids -IV thiamine, IV folic acid given -career services manager and substance use navigator consulted Code status: Full code DVT prophylaxis: SCD GI prophylaxis: Protonix Pain management: Acetaminophen p.r.n. Diet/nutrition: soft to chew food and tube feeding Prognosis: Guarded Disposition: Monitor creatinine, Continue antibiotics and lactulose, maintain bowel movement at least 3-4 times per day, Monitor ammonia, INR, bleeding, mentation, liver panel, Encourage oral feeding, daily ST eval, PT cleared for home with home health. Plan to discharge patient when he tolerates food and lactulose orally, without needing NG tube. Resident MD attestation: The patient note has been reviewed and supervised by senior residents PGY-2/ PGY-3. Patient was seen, examined and discussed with attending physician, Dr. Ely Rooney MD Internal Medicine resident, PGY-1 Date of Service: Apr 28, 2025 Billing Provider: BRITTNEY LOCKHART MD Common Visit Codes: [id number] INP/OBS CARE(HIGH) ROBIN ROONEY, RES Apr 28, 2025 11:37 BRITTNEY LOCKHART MD May 01, 2025 07:20
[2025-04-28] MEDS: albumin (human) 25% 100 ML IV solution IV ONE (15:31)
[2025-04-28] MEDS: midodrine 5mg tablet NG SCH (15:41)
[2025-04-28] MEDS: metoclopramide 5 mg/ml inj IV PRN (17:35)
[2025-04-28 18:09] LABS: OSMOLALITY UA 401 MOSM/K (50-1400)
[2025-04-28 18:19] LABS: LEUKOCYTE ESTERASE ,URINE NEGATIVE (Neg); NITRITES, URINE NEGATIVE (Neg); OCCULT BLOOD,URINE LARGE (Neg)
[2025-04-28 18:22] LABS: UA COLLECTION TYPE NON-SPECIFIED
[2025-04-28 18:24] LABS: CREATININE,URINE RANDOM 63.0 MG/DL
[2025-04-28 18:25] LABS: CAL OXALATE CRYSTALS FEW /HPF (NEGATIVE); HYALINE CASTS 0-3 /LPF (NEGATIVE); SQUAMOUS EPITHELIAL CELL,UR NONE SEEN /LPF (FEW)
[2025-04-29] MEDS: HYDROcodone/acetaminophen 7.5MG/325MG per 15ml UD CUP NG PRN (01:16)
[2025-04-29 02:00] VITALS: BP 119/89; PULSE 89; RESP 20; TEMP 97.8; O2SAT 97
[2025-04-29 06:45] VITALS: BP 110/56; PULSE 88; RESP 16; TEMP 97; O2SAT 97
[2025-04-29 06:54] LABS: MEAN PLATELET VOLUME 10.6 FL (7.4-10.4); RED CELL DISTRIBUTION WIDTH 26.7 % (11.5-14.5)
[2025-04-29 07:28] LABS: TOTAL CARBON DIOXIDE 17.5 MMOL/L (24-32)
[2025-04-29 07:44] LABS: CREATININE 2.46 MG/DL (0.60-1.10); eCRCL 36 ML/MIN; eGFR 28 ML/MIN
[2025-04-29] MEDS: Nepro carb steady vanilla 8oz. NG SCH (08:28)
[2025-04-29 08:40] VITALS: RESP 16; O2SAT 97
[2025-04-29 08:56] LABS: LYMPHOCYTES % (MANUAL) 3.0 % (21-51); MONOCYTES % (MANUAL) 9.0 % (2-12); NEUTROPHILS % (MANUAL) 88.0 % (42-75); PLATELET ESTIMATE DECREASED
[2025-04-29 08:57] LABS: ELLIPTOCYTES FEW
[2025-04-29 10:49] VITALS: BP 108/50; PULSE 88; RESP 14; TEMP 97.1; O2SAT 96
[2025-04-29] MEDS ORDERED: RIFA550T PO (12:09)
[2025-04-29] MEDS ORDERED: thiamine tablet NG (12:09)
[2025-04-29] MEDS ORDERED: MULT9LIQ7 NG (12:09)
[2025-04-29] MEDS ORDERED: LACT1CAP26 PO (12:09)
[2025-04-29] MEDS ORDERED: CEFD300C3 PO (12:09)
[2025-04-29] MEDS ORDERED: PRED20TA NG (12:09)
[2025-04-29] MEDS ORDERED: URSO300C2 NG (12:09)
[2025-04-29] MEDS ORDERED: SODI325T PO (12:22)
--- NOTE | 2025-04-29 18:02 | PROCEDURE NOTE- Residance ---
Procedure Note Providers to CC CC: BRENT HALL MD ~ Planned Procedure Paracentesis Indications Ascites Post Operative Dx: Hepatic cirrhosis induced ascites [employer] Operator Yuni Neal Type of Anesthesia Local with lidocaine Informed Consent Obtained from the patient Description A time-out was performed. My hands were washed immediately prior to the procedure. I wore a surgical cap, mask with protective eyewear, sterile gown and sterile gloves throughout the procedure. The area was cleansed in usual sterile fashion using chlorhexidine scrub. Anesthesia was achieved with 1% lidocaine. The left side of the abdomen was prepped and draped in a sterile fashion using chlorhexidine scrub. 1% lidocaine was used to numb the skin, soft tissue and peritoneum. The paracentesis catheter was inserted and advanced with negative pressure until straw colored fluid was aspirated. The catheter was then connected to the vaccutainer and 2 liters of ascitic fluid was drained. The catheter was removed and no leaking was noted. A bandaid was placed over the puncture wound. The patient tolerated the procedure well without any immediate complications. Estimated blood loss was 2-5cc. Estimated Blood Loss 2-5cc Complication None Date of Service: Apr 29, 2025 Billing Provider: BRENT HALL MD, DEEPANJALI, RES Apr 29, 2025 18:02
--- NOTE | 2025-04-29 20:40 | DISCHARGE SUMMARY-Residence ---
Discharge Summary Providers to Resident Creating Document: ROBIN ROONEY RES ~ Discharge Summary Admission Diagnosis: Hepatic encephalopathy, hyponatremia Hospital Course DATE OF ADMISSION: 04/15/25 DATE OF DISCHARGE: 04/29/25 Discharge Diagnosis\Comment: Hepatic encephalopathy Decompensated alcoholic liver cirrhosis, Child Vitale C, MELD-Na score 33 Acute kidney injury, possibly hepatorenal syndrome History of alcohol use disorder Operations\Procedures: Paracentesis 3 times Consultants: Lead Nuclear Medicine Technologist-Dr. Farfan Extruder-Dr. Ana Maria MILLER- Dr. Bray Complications: None Condition on DC: Stable New Medications: Cefdinir* (Cefdinir*) 300 Mg Capsule 1 CAP PO Q12H for 7 Days, #14 CAP Lactobacillus Rhamnosus (Culturelle) 10 Billion Cell Capsule 1 CAP PO BID for 30 Days, #60 CAP 0 Refills Sodium Bicarbonate (Sodium Bicarbonate) 325 Mg Tablet 1 TAB PO Q12H for indigestion for 30 Days, #60 TAB 0 Refills Multivits W-Min/Ferrous Gluc (Centrum Multivit-Mineral Liq) 9 Mg Iron/15 Ml Li quid 15 ML NG DAILY for 30 Days, #1 BOT Prednisone* (Prednisone*) 20 Mg Tablet 60 MG NG QAM for 28 Days, #28 TAB Rifaximin (Xifaxan) 550 Mg Tablet 1 TAB PO Q12H for 30 Days, #60 TAB 0 Refills [thiamine tablet] () 100 MG TABLET 100 MG NG DAILY for 30 Days, #30 Ursodiol (Ursodiol) 300 Mg Capsule 300 MG NG Q12H for 30 Days, #60 CAP Continued Medications: Ferrous Sulfate* (Ferrous Sulfate*) 325 Mg Tablet 1 TAB PO DAILY, TAB Folic Acid* (Folic Acid*) Y Tab 1 MG PO DAILY for 30 Days, #30 TAB 0 Refills Lactulose (Lactulose) 10 Gram/15 Ml Solution 20 GM PO TID 20 GRAMS(30 ML) EVERY 8 HOURS Midodrine Hcl (Midodrine Hcl) 10 Mg Tablet 1 TAB PO TID for 30 Days, #90 TAB 0 Refills 1 TABLET THREE TIMES A DAY(EVERY 4 HOURS DURING DAY TIME) Pantoprazole Sodium (Pantoprazole Sodium) 40 Mg Tablet.dr 1 TAB PO DAILY for 30 Days, #30 TAB 0 Refills Phytonadione (Vitamin K) 100 Mcg Tablet 1 TAB PO DAILY for 30 Days, #30 TAB 0 Refills Discontinued Medications: Furosemide (Furosemide) 80 Mg Tablet 1 TAB PO DAILY Potassium Chloride (Potassium Chloride) 20 Meq Tab.prt.sr 1 TAB PO DAILY for 30 Days, #30 TAB 0 Refills Spironolactone (Spironolactone) 100 Mg Tablet 1 TAB PO BID for 30 Days, #30 TAB 0 Refills Discharge Summary: HPI as per admitting physician: 49-year-old male with history of decompensated liver failure, alcoholic cirrhosis, portal hypertension was brought to the ER by son due to altered level of consciousness. The son stated that the patient coughed severely the previous day and had an episode of forceful yellow emesis at night after which he became obtunded but responding to anyone only staring at the ceiling. He has been a heavy alcoholic for the past 25 years and was recently diagnosed with alcoholic liver cirrhosis about 2 months ago. He had stopped drinking alcohol 3 months ago according to his family and the patient. There was no blood in vomit. He was admitted previously on March 31, 2025 for acute decompensated liver failure with MELD-Na score of 26. Hospital course: His MELD-Na score was 3, ammonia 82 on admission with INR of 2.8, platelet count 135, total bilirubin 13.2 and albumin of 1.4. He failed the swallow test hence NG tube was placed for p.o. lactulose to aim for 3-4 bowel movements every day and was also started on rifaximin and IV Rocephin. He was placed on alcohol withdrawal protocol Lead Nuclear Medicine Technologist, Dr. 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 Pathology revealed chronic inflammation with increased intraepithelial lymphocytes, partial villous blunting and regenerate or crypt changes without evidence of malignancy. Antrum biopsy was negative for metaplasia, H pylori and dysplasia/neoplasia. Patient was transferred to ICU as he was unresponsive and obtunded and intubated. He was given lactulose q.2h and eventually got bowel movements. He had a rectal tube. His ammonia gradually came down and was extubated after 2 days. The patient started to communicate with family 1 day after extubation and was oriented. He had a paracentesis 3 times throughout the hospital stay, including on the day of discharge. His ammonia gradually came down and was shifted to PCU. His AST started elevate and hence was started on prednisone and ursodeoxycholic acid. INR was stable throughout the stay and had no bleeding. He was continued on IV Protonix 40 mg b.i.d, lactulose 20 g q.2h, rifaximin 550 mg b.i.d., midodrine 5 mg. He was given an 8 day course of IV ceftriaxone. Attempts were made to transfer the patient for higher level of care to [facility] [place] [facility] [place] but he was denied and they stated that he is not a candidate for liver transplant due to limited sobriety and inability to engage. Patient's family was explained about the situation and their options which they understood. PT cleared him for home with home health in the following days. Patient was stable on the day of discharge and he stated that he wants to go home. Patient did not experience further complications throughout the entire hospital stay. Patient was seen and examined on the day of discharge. All labs, diagnostic workups, discharge plan discussed with the patient in detail during visit before discharge. All questions and concerns answered to the best of my professional knowledge. Imaging: Abdomen X ray-04/15/25 Enteric catheter in satisfactory position. Chest X ray-04/15/25 1. No radiographic evidence of acute cardiopulmonary abnormality. Abdomen/Pelvis CT-04/15/25 1. Cirrhosis with sequela of portal hypertension including splenomegaly and large volume ascites. Head CT-04/15/25 1. No evidence of acute intracranial abnormality. Chest X ray-04/17/25 1. No acute cardiopulmonary disease. 2. Lines and tubes unchanged. Abdomen CT-04/18/25 Vascular US-04/21/25 NO EVIDENCE OF DEEP VENOUS THROMBOSIS. Abdomen X ray-04/22/25 1. Enteric tube terminates in the stomach. 2. Dilated bowel loops in the abdomen. Chest X ray-04/28/25 1. Low lung volumes with bibasilar atelectasis. No focal consolidation or other evidence of acute disease in the chest. 2. Enteric tube reaches the stomach. Vital Signs Date Time Temp Pulse Resp B/P (MAP) Pulse Ox O2 Delivery O2 Flow Rate FiO2 04/29/25 10:49 97.1 88 14 108/50 (69) 96 04/29/25 08:40 Room Air 2.0 28 Laboratory Tests Test 04/28/25 01:23 11/9/25 05:50 04/28/25 07:55 04/28/25 14:09 Glucometer 135 mg/dl 123 mg/dl 127 mg/dl White Blood Count 13.4 X10'3 Red Blood Count 3.06 X10'6 Hemoglobin 8.7 g/dl Hematocrit 26.3 % Mean Corpuscular Volume 86.1 FL Mean Corpuscular Hemoglobin 28.4 PG Mean Corpuscular Hemoglobin Concent 33.0 g/dL Red Cell Distribution Width 27.2 % Platelet Count 125 X10'3 Mean Platelet Volume 9.8 FL Neutrophils (%) (Auto) 82.8 % Lymphocytes (%) (Auto) 4.5 % Monocytes (%) (Auto) 12.6 % Eosinophils (%) (Auto) 0.1 % Basophils (%) (Auto) 0 % Neutrophils # (Auto) 11.1 X10'3 Lymphocytes # (Auto) 0.6 X10'3 Monocytes # (Auto) 1.7 X10'3 Eosinophils # (Auto) 0.0 X10'3 Basophils # (Auto) 0.0 X10'3 CBC Comment Platelet Estimate Decreased Red Blood Cell Morphology Perf Polychromasia 1+ Basophilic Stippling Anisocytosis 3+ Target Cells 1+ Joshua Cells 1+ Rouleau 2+ Prothrombin Time 23.0 SECONDS INR International Normalized Ratio 2.4 INR Coagulation Comments Sodium Level 132 MMOL/L Potassium Level 3.8 MMOL/L Chloride Level 102 MMOL/L Carbon Dioxide Level 19.9 MMOL/L Anion Gap 10 Blood Urea Nitrogen 108 MG/DL Creatinine 2.27 MG/DL Estimated GFR/1.73 m2 31 ML/MIN BUN/Creatinine Ratio 47.6 Glucose Level 138 MG/DL Osmolality 324 MOSM/K Calcium Level 9.1 MG/DL Total Bilirubin 14.6 MG/DL Aspartate Amino Transf (AST/SGOT) 71 U/L Alanine Aminotransferase (ALT/SGPT) 53 U/L Alkaline Phosphatase 162 IU/L Ammonia 24 UMOL/L Total Protein 6.9 G/DL Albumin 1.9 G/DL Globulin 5.0 G/DL Albumin/Globulin Ratio 0.4 Procalcitonin 0.29 NG/ML Chemistry Comments Test 04/28/25 17:45 04/28/25 19:27 04/29/25 01:35 04/29/25 05:42 Urine Specimen Description Non-specified Urine Color Yellow Urine Clarity Clear Urine pH 6.0 Urine Specific [place] 1.020 Urine Protein Negative mg/dl Urine Glucose (UA) Negative mg/dl Urine Ketones Negative mg/dl Urine Occult Blood Large Urine Nitrite Negative Urine Bilirubin Moderate Urine Urobilinogen 0.2 E.U/dL Urine Leukocyte Esterase Negative Urine RBC Tntc /HPF Urine WBC 0-4 /HPF Urine Squamous Epithelial Cells None seen /LPF Urine Calcium Oxalate Crystals Few /HPF Urine Bacteria 1+ /HPF Urine Hyaline Casts 0-3 /LPF Urine Culture Indicated Not ind Volume Urine Centrifuged 10 ml Urine Eosinophils Few eos /HPF Urine Osmolality 401 MOSM/K Urine Random Creatinine 63.0 MG/DL Urine Random Sodium < 15 MEQ/L Urine Comment Glucometer 131 mg/dl 132 mg/dl White Blood Count 14.4 X10'3 Red Blood Count 3.12 X10'6 Hemoglobin 8.7 g/dl Hematocrit 26.9 % Mean Corpuscular Volume 86.2 FL Mean Corpuscular Hemoglobin 27.7 PG Mean Corpuscular Hemoglobin Concent 32.2 g/dL Red Cell Distribution Width 26.7 % Platelet Count 135 X10'3 Mean Platelet Volume 10.6 FL Neutrophils (%) (Auto) 85.9 % Lymphocytes (%) (Auto) 2.8 % Monocytes (%) (Auto) 11.2 % Eosinophils (%) (Auto) 0 % Basophils (%) (Auto) 0.1 % Neutrophils # (Auto) 12.3 X10'3 Lymphocytes # (Auto) 0.4 X10'3 Monocytes # (Auto) 1.6 X10'3 Eosinophils # (Auto) 0.0 X10'3 Basophils # (Auto) 0.0 X10'3 CBC Comment Differential Total Cells Counted 100 Neutrophils % (Manual) 88.0 % Lymphocytes % (Manual) 3.0 % Monocytes % (Manual) 9.0 % Smudge Cells 1+ Platelet Estimate Decreased Red Blood Cell Morphology Perf Polychromasia Few Hypochromasia 2+ Basophilic Stippling Anisocytosis 3+ Target Cells 1+ Tear Drop Cells Few Elliptocytes Few Acanthocytes 1+ Rouleau 1+ Coagulation Comments Sodium Level 127 MMOL/L Potassium Level 4.0 MMOL/L Chloride Level 97 MMOL/L Carbon Dioxide Level 17.5 MMOL/L Anion Gap 13 Blood Urea Nitrogen 119 MG/DL Creatinine 2.46 MG/DL Estimated GFR/1.73 m2 28 ML/MIN BUN/Creatinine Ratio 48.4 Glucose Level 148 MG/DL Calcium Level 9.4 MG/DL Total Bilirubin 15.5 MG/DL Aspartate Amino Transf (AST/SGOT) 74 U/L Alanine Aminotransferase (ALT/SGPT) 60 U/L Alkaline Phosphatase 181 IU/L Ammonia 36 UMOL/L Total Protein 6.8 G/DL Albumin 2.2 G/DL Globulin 4.6 G/DL Albumin/Globulin Ratio 0.5 Prealbumin 11.8 MG/DL Chemistry Comments Test 04/29/25 08:16 04/29/25 08:42 Prothrombin Time SECONDS INR International Normalized Ratio INR Coagulation Comments Sodium Level 127 MMOL/L Glucometer 127 mg/dl Examination on the day of discharge: Awake, alert, better oriented, lethargic, NG tube and male wick in place HEENT: Icteric sclera ; pink conjunctiva, moist mucous membranes, small laceration noted on tongue with no hematoma Cardiac: Regular rhythm, regular rate with no murmurs all over the precordium. Respiratory: Equal breath sounds bilaterally, no tachypnea, no wheezing ,rub or rales. Gastrointestinal: Abdomen mildly distended, soft, non-tender, normal bowel sounds Musculoskeletal: No pedal edema, no cyanosis, asterixis noted Neurological: no cranial nerve deficits, pupils equal and reactive to light, reflexes 3+ in upper and lower extremities. Unable to elicit for sensory deficits and gait Skin: Warm and dry Advice on discharge: Follow up with PCP in 3-4 days Consult a re etcher for further management Encourage oral feeding and advance diet as tolerated Monitor ammonia, INR, liver panel, creatinine, sodium in a week Please abstain from alcohol Continue lactulose and rifaximin for goal of 2-3 bowel movements every day Continue taking prednisone for 30 days and follow up with GI. On event of any emergencies, please call 911 or go to ER Patient was stable on the day of discharge the patient stated that he wants to go home. The patient was seen and evaluated on day of discharge. Time spent on discharge [address] Robin Rooney Internal medicine resident, PGY-1 *Problems/Diagnosis: (1) Hepatic encephalopathy (2) Decompensated hepatic cirrhosis (3) BRIAN (acute kidney injury) (4) Hyponatremia (5) Alcohol use disorder Total Time Spent on D/C: > 30 Minutes Date of Service: Apr 29, 2025 Billing Provider: BRITTNEY LOCKHART MD Common Visit Codes: 29318-ZSU/OBS DISCH DAY >30min ROBIN ROONEY, RES Apr 29, 2025 20:40 BRITTNEY LOCKHART MD May 01, 2025 07:20
== END 2025-04-29 16:50 | disposition home health service (06) | DRG 280 ==
LOC: ER 02:53 → ED HOLD 07:20 → PCU 3S 09:52 → CICU 2S 17:40 → PCU 3S 04-18 11:46
PROVIDERS: ADMIT Family Medicine; ATTEND Family Medicine
PROC: 5A1945Z Respiratory Ventilation, 24-96 Consecutive Hours (ICD-10-PCS; principal; 2025-04-15)
PROC: 0BH17EZ Insertion of Endotracheal Airway into Trachea, Via Natural or Artificial Opening (ICD-10-PCS; 2025-04-15)
PROC: BW211ZZ Computerized Tomography (CT Scan) of Abdomen and Pelvis using Low Osmolar Contrast (ICD-10-PCS; 2025-04-15)
PROC: 0W9G3ZZ Drainage of Peritoneal Cavity, Percutaneous Approach (ICD-10-PCS; 2025-04-18)
PROC: 30233N1 Transfusion of Nonautologous Red Blood Cells into Peripheral Vein, Percutaneous Approach (ICD-10-PCS; 2025-04-20)
PROC: 0W9G3ZZ Drainage of Peritoneal Cavity, Percutaneous Approach (ICD-10-PCS; 2025-04-25)
PROC: 0W9G3ZZ Drainage of Peritoneal Cavity, Percutaneous Approach (ICD-10-PCS; 2025-04-29)
DX: K76.82 Hepatic encephalopathy (principal); K70.31 Alcoholic cirrhosis of liver with ascites; D68.9 Coagulation defect, unspecified; E87.20 Acidosis, unspecified; K72.90 Hepatic failure, unspecified without coma; E72.20 Disorder of urea cycle metabolism, unspecified; E88.09 Other disorders of plasma-protein metabolism, not elsewhere classified; K76.6 Portal hypertension; K31.89 Other diseases of stomach and duodenum; D89.2 Hypergammaglobulinemia, unspecified; N17.9 Acute kidney failure, unspecified; D64.9 Anemia, unspecified; N18.9 Chronic kidney disease, unspecified; I50.9 Heart failure, unspecified; K86.1 Other chronic pancreatitis; E87.1 Hypo-osmolality and hyponatremia; K76.7 Hepatorenal syndrome
CPT/HCPCS: 31500; 36415; 36430; 36600; 49082; 49083; 70450; 71045; 74018; 74170; 74177; 80048; 80053; 80061; 80076; 80305; 80320; 81001; 82140; 82248; 82550; 82570; 82803; 82948; 83036; 83605; 83690; 83735; 83880; 83930; 83935; 84100; 84134; 84145; 84156; 84295; 84300; 84478; 84484; 85007; 85008; 85018; 85025; 85027; 85379; 85610; 85730; 86885; 86900; 86901; 86920; 87040; 87081; 87207; 92508; 92616; 93005; 93970; 94002; 94003; 94760; 96365; 96375; 97110; 97116; 97161; 97530; 99285; A4314; A4349; A4358; A4615; A6209; A6212; A6213; A6250; A6258; A6449; A6590; A9900; C1758; G0378; J0696; J1171; J1630; J1815; J2405; J2470; J2765; J3010; J3411; J3430; J3480; J3490; J7030; J7040; J7070; J7120; J7512; P9016; P9047; Q9967